=== PATIENT | male | born 1970 | race Caucasian/White ===

== ENCOUNTER 2018-02-05 21:24 | Inpatient (IN) | payer OTHER ==
--- NOTE | 2018-02-05 22:50 | PDOC ---
History of Present Illness - General History Source: Care Provider, Old Records Exam Limitations: No Limitations - History of Present Illness Initial Comments: 02/06/18 02:36 Patient is a 47 year old male with a significant past medical history of severe mental retardation, down syndrome, pericardial effusion, systolic dysfunction, congenital heart anomaly, hypothyroidism, lymphocytic thyroiditis, MRSA infection, cataracts, decreased hearing b/l, congenital deformity of the hand, upper extremities, and shoulder girdle, who was brought by aid to the ED with complaints of chronic coughing that began earlier today. As per patient's aid, patient began to experience sudden cough that she stated was chronic and forceful enough to cause him to vomit. She reports calling the patient's nurse , who then advised that he be taken to the ED for further evaluation. As per Aid: Denies diarrhea, constipation, hematuria. Denies contact with sick individuals, out of state travelling. Denies fevers, chills. Denies any other symptoms. Allergies: Azithromycin Social history: [facility]. No smoking. No alcohol. No illicit drugs. Surgical history: none PMD: Dr. Coto <Regan Nicolas - Last Filed: 02/06/18 04:14> <Jazmin Moody - Last Filed: 02/06/18 04:21> - General Chief Complaint: Shortness of Breath Stated Complaint: WHEEZING,COUGHING Time Seen by Provider: 02/05/18 22:50 Past History <Regan Nicolas - Last Filed: 02/06/18 04:14> - Past Medical History Cardiac Disorders: Yes (ANOMALY OF HEART) COPD: No Thyroid Disease: Yes (THYROIDITIS) Other medical history: Downs syndrome - Immunization History Immunization Up to Date: Yes - Suicide/Smoking/Psychosocial Hx Smoking Status: No Smoking History: Never smoked Number of Cigarettes Smoked Daily: 0 Hx Alcohol Use: No Drug/Substance Use Hx: No Substance Use Type: None Hx Substance Use Treatment: No <Jazmin Moody - Last Filed: 02/06/18 04:21> - Past Medical History Allergies/Adverse Reactions: Allergies Allergy/AdvReac Type Severity Reaction Status Date / Time azithromycin [From Zithromax] Allergy Verified 02/05/18 21:37 Home Medications: Ambulatory Orders Loratadine [Claritin] 10 mg PO DAILY 01/17/12 Multivitamin [Animal Shapes Vitamins] 1 tab PO DAILY 01/17/12 [place]-3 Fatty Acids/Fish Oil [Fish Oil 1,000 mg Softgel] 1 each PO DAILY Levothyroxine [Synthroid -] 75 mcg PO DAILY 10/06/14 Sodium Chloride [Saline Nasal [place]] 30 ml NS BID 10/06/14 Kobi/Polymyx B Sulf/Dexameth [Maxitrol -] 1 applic OU HS #1 tube 02/21/15 Kobi/Polymyx B Sulf/Dexameth [Maxitrol Eye Drops -] 2 drop OU Q6HPO drops Bisacodyl [Dulcolax] 10 mg RC PRN 02/06/18 Ibuprofen 200 mg PO PRN PRN 02/06/18 Review of Systems - Review of Systems Able to Perform ROS?: Yes Comments:: 02/06/18 02:37 GENERAL/CONSTITUTIONAL: +Fever No chills. No weakness. HEAD, EYES, EARS, NOSE AND THROAT: No change in vision. No ear pain or discharge. No sore throat. CARDIOVASCULAR: No chest pain or shortness of breath. RESPIRATORY: +Coughing. No, wheezing, or hemoptysis. GASTROINTESTINAL: +Vomiting. No nausea, diarrhea or constipation. GENITOURINARY: No dysuria, frequency, or change in urination. MUSCULOSKELETAL: No joint or muscle swelling or pain. No neck or back pain. SKIN: No rash NEUROLOGIC: No headache, vertigo, loss of consciousness, or change in strength/ sensation. ENDOCRINE: No increased thirst. No abnormal weight change. HEMATOLOGIC/LYMPHATIC: No anemia, easy bleeding, or history of blood clots. ALLERGIC/IMMUNOLOGIC: No hives or skin allergy. <Regan Nicolas - Last Filed: 02/06/18 04:14> *Physical Exam - Vital Signs Last Vital Signs Temp Pulse Resp BP Pulse Ox 98.6 F 130 H 20 134/72 92 L 02/05/18 21:31 02/05/18 21:31 02/05/18 21:31 02/05/18 21:31 02/05/18 21:31 - Physical Exam Comments: 02/06/18 02:37 GENERAL: Awake, alert, and fully oriented, in no acute distress HEAD: No signs of trauma EYES: +Cross eyed. PERRLA, EOMI, sclera anicteric, conjunctiva clear ENT: Auricles normal inspection, hearing grossly normal, nares patent, oropharynx clear without exudates. Moist mucosa NECK: Normal ROM, supple, no lymphadenopathy, JVD, or masses LUNGS: Breath sounds equal, clear to auscultation bilaterally. No wheezes, and no crackles HEART: +Tachycardic. Regular rhythm, normal S1 and S2, no murmurs, rubs or gallops ABDOMEN: Soft, nontender, normoactive bowel sounds. No guarding, no rebound. No masses EXTREMITIES: Normal range of motion, no edema. No clubbing or cyanosis. No cords, erythema, or tenderness NEUROLOGICAL: Cranial nerves II through XII grossly intact. Normal speech, normal gait SKIN: Warm, Dry, normal turgor, no rashes or lesions noted. <Regan Nicolas - Last Filed: 02/06/18 04:14> - Vital Signs Last Vital Signs Temp Pulse Resp BP Pulse Ox 98.6 F 130 H 20 134/72 92 L 02/05/18 21:31 02/05/18 21:31 02/05/18 21:31 02/05/18 21:31 02/05/18 21:31 <Jazmin Moody - Last Filed: 02/06/18 04:21> Heart Score/ECG Review - ECG Intrepretation Comment:: 02/06/18 04:14 Completed @3:11:54 Poor data quality, interprretation may be adversely affected Sinus tachycardia Ventricular pre-excitation, WPW pattern type A Abnormal ECG Vent. rate 109 bpm MN interval 128 ms QRS duration 152 ms <Regan Nicolas - Last Filed: 02/06/18 04:14> ED Treatment Course - LABORATORY CBC & Chemistry Diagram: 02/05/18 23:42 02/05/18 23:42 - ADDITIONAL ORDERS Additional order review: Laboratory Results 02/05/18 02/05/18 23:42 23:42 Sodium 140 Potassium 4.6 Chloride 106 Carbon Dioxide 27 Anion Gap 7 L BUN 19 H D Creatinine 1.0 D Creat Clearance w eGFR > 60 Random Glucose 161 H D Lactic Acid 1.5 Calcium 8.4 L Total Bilirubin 0.6 AST 31 D ALT 21 D Alkaline Phosphatase 111 Total Protein 7.5 Albumin 3.1 L 02/05/18 23:42 RBC 4.11 MCV 102.1 H MCHC 34.6 RDW 12.8 MPV 8.1 Neutrophils % 86.5 H D Lymphocytes % 6.2 L D Monocytes % 6.6 Eosinophils % 0.1 D Basophils % 0.6 - Medications Given in the ED: ED Medications Discontinued Medications Generic Name Dose Route Start Last Admin Trade Name Warren PRN Reason Stop Dose Admin Acetaminophen 1,000 mg 02/06/18 01:49 02/06/18 02:00 Ofirmev Injection - IVPB 02/06/18 01:50 1,000 mg ONCE ONE Administration Piperacillin Sod/Tazobactam 50 mls @ 100 mls/hr 02/05/18 22:53 02/05/18 22:55 Sod 3.375 gm/ Dextrose IVPB 02/05/18 23:22 100 mls/hr ONCE ONE Administration Protocol Sodium Chloride 1,000 ml 02/06/18 00:11 02/06/18 00:49 Normal Saline - IV 02/06/18 00:12 1,000 ml ONCE ONE Administration <Regan Nicolas - Last Filed: 02/06/18 04:14> - LABORATORY CBC & Chemistry Diagram: 02/05/18 23:42 02/05/18 23:42 <Jazmin Moody - Last Filed: 02/06/18 04:21> Medical Decision Making - Medical Decision Making 02/06/18 02:33 Pt comes with tachycardia, cough and wheeze. He has a low grade temp. Pt has a wet cough. O2 Sat on RA is 92%. Now after treatment still between 91% and 93%. Pt was initially blood cultured and treated with a dose of zosyn, as he lives in a [facility] situation. Pt has downs syndome and cannot contribute to his history. Severe development delay. Pt will require admission for IV abx. 02/06/18 02:34 EKG demonstrtaes old LVH strain and interventricular conduction delay 02/06/18 02:42 Pt still has a temp of 101F rectally. 02/06/18 04:19 Patient Name: MARIANNE CORTÉS THIS IS A FINAL REPORT FROM [facility] [employer] [facility] DATE OF SERVICE: 2018-02-05 22:56:06 IMAGES: 2 EXAM: X-RAY CHEST 2.5 cm right hilar ovoid radiopacity, question lymphadenopathy versus vascular prominence. Consider chest CT correlation. Exam limited by left hand and wrist overlying left mid lung. No visible lung consolidation or pleural effusions. Cardiomegaly and/or pericardial effusion. Chronic fracture right clavicle. THIS DOCUMENT HAS BEEN ELECTRONICALLY SIGNED Pt will be admitted to the hospitaist team <Jazmin Moody - Last Filed: 02/06/18 04:21> *DC/Admit/Observation/Transfer - Attestations Scribe Attestion: 02/06/18 02:37 Documentation prepared by Regan Nicolas, acting as medical lab specialist for Jazmin Moody MD. <Regan Nicolas - Last Filed: 02/06/18 04:14> - Discharge Dispostion Decision to Admit order: Yes <Jazmin Moody - Last Filed: 02/06/18 04:21> Diagnosis at time of Disposition: Pneumonia, Tachycardia - Discharge Dispostion Condition at time of disposition: Guarded
[2018-02-05] MEDS ORDERED: PIPERACILLIN/TAZOB 3.375 GM 3.375 GM in DEXTROSE 5%-WATER - 50 ML IVPB ONE (22:53)
[2018-02-05] MEDS ORDERED: PIPERACILLIN/TAZOB 3.375 GM 3.375 GM/50 ML BAG IVPB ONE (23:12)
[2018-02-05] MEDS: NEO/POLYMYX B SULF/DEXAMETH OPHTHALMIC 5ML BOTTLE OU SCH (23:40)
[2018-02-05 23:53] LABS: BASO % 0.6 % (0-2.0); EOS % 0.1 % (0-4.5); HEMATOCRIT 41.9 % (35.4-49); HEMOGLOBIN 14.5 GM/dL (11.7-16.9); LYMPH % 6.2 % (8-40); MCH 35.3 pg (25.7-33.7); MCHC 34.6 g/dl (32.0-35.9); MEAN CELL VOLUME 102.1 fl (80-96); MEAN PLT VOLUME 8.1 fl (7.5-11.1); MONO % 6.6 % (3.8-10.2); NEUT % 86.5 % (42.8-82.8); PLATELET COUNT 200 K/MM3 (134-434); RBC 4.11 M/mm3 (4.00-5.60); RDW 12.8 % (11.9-15.9); WHITE BLOOD COUNT 12.9 K/mm3 (4.0-10.0)
[2018-02-06] MEDS ORDERED: SODIUM CHLORIDE 0.9% 500 ML INFUS.BAG IV ONE (00:11)
[2018-02-06 00:22] LABS: ALBUMIN 3.1 g/dl (3.4-5.0); ANION GAP 7 (8-16); BILIRUBIN,TOTAL 0.6 mg/dL (0.2-1.0); BLOOD UREA NITROGEN 19 mg/dL (7-18); CALCIUM 8.4 mg/dL (8.5-10.1); CHLORIDE 106 mmol/L (98-107); CO2 27 mmol/L (21-32); GLUCOSE,RANDOM 161 mg/dL (74-106); SGPT/ALT 21 U/L (12-78); SODIUM 140 mmol/L (136-145); TOT PROT 7.5 g/dl (6.4-8.2)
[2018-02-06 00:23] LABS: POTASSIUM 4.6 mmol/L (3.5-5.1)
[2018-02-06 00:24] LABS: ALK PHOS 111 U/L (45-117); SGOT/AST 31 U/L (15-37)
[2018-02-06] MEDS ORDERED: ACETAMINOPHEN 1000 MG/100 ML VIAL (NON FORMULARY) IVPB ONE (01:49)
[2018-02-06] MEDS ORDERED: ACETAMINOPHEN INJECTION 100 ML IVPB ONE (01:58)
[2018-02-06] MEDS ORDERED: ALBUTEROL SO4 2.5/IPRATROPIUM 0.5 INH SOL 3 ML VIAL.NEB. NEB ONE ×2 (02:34→02:39)
[2018-02-06] MEDS ORDERED: KETOROLAC TROMETHAMINE 30 MG/1 ML VIAL IVPUSH ONE (02:42)
[2018-02-06] MEDS ORDERED: KETOROLAC TROMETHAMINE 30 MG/1 ML VIAL ONE (02:48)
--- NOTE | 2018-02-06 04:02 | PN ---
Teaching Attending Note Name of Resident: Dary Markham ATTENDING PHYSICIAN STATEMENT I saw and evaluated the patient. Chart, data, imaging reviewed. I reviewed the resident's note and discussed the case with the resident. I agree with the resident's findings and plan as documented. SUBJECTIVE: 47 year old male with a significant past medical history of severe mental retardation, down syndrome, pericardial effusion, systolic dysfunction, congenital heart anomaly, hypothyroidism, lymphocytic thyroiditis, MRSA infection brought in by aid to [facility] because he was experiencing shortness of breath and wheezing while at home, associated with a cough. Started abruptly in afternoon. Patient was not eating around this time. No reported sick contacts. OBJECTIVE: Last Vital Signs Temp Pulse Resp BP Pulse Ox 101.0 F H 130 H 20 134/72 92 L 02/06/18 02:42 02/05/18 21:31 02/05/18 21:31 02/05/18 21:31 02/05/18 21:31 general -MR, not in visible distress, noncooperative heent- no sinus tenderness neck -no jvd, supple cv-s1+s2+ rrr chest- right anterior chest wheezing appreciated abdomen -soft, nt, no masses appreciated ext-no pedal edema ekg -sinus rhythm, [id number] Abnormal Lab Results 02/05/18 02/05/18 23:42 23:42 WBC 12.9 H D MCV 102.1 H MCH 35.3 H Neutrophils % 86.5 H D Lymphocytes % 6.2 L D Anion Gap 7 L BUN 19 H D Random Glucose 161 H D Calcium 8.4 L Albumin 3.1 L cxr- reviewed by me ASSESSMENT AND PLAN: 47yo man with MR, with sepsis secondary to community acquired pneumonia. Shortness or breath with cough, fever, tachypnea and mild infiltrates on cxr. Nontoxic apprearing and stable for transfer to medical floor. #Sepsis secondary to community acquired pneumonia -admit to telemetry (for pulse 02 monitoring) -lactate level -troponin -sputum culture -blood cultures x2 -urine legionella ag -UA -urine culture -ceftriaxone 2g IV daily -nebs prn if wheezing continue chronic home meds -heparin sc for dvt ppx
[2018-02-06] MEDS ORDERED: ALBUTEROL SO4 2.5/IPRATROPIUM 0.5 INH SOL 3 ML VIAL.NEB. NEB PRN (04:14)
--- NOTE | 2018-02-06 04:31 | HP ---
CHIEF COMPLAINT: cough PCP: Dr. Coto HISTORY OF PRESENT ILLNESS: 47 y/o M with PMH of severe mental retardation, Down's syndrome, pericardial effusion, systolic dysfunction, congenital heart anomaly, hypothyroidism, lymphocytic thyroiditis, MRSA infection, cataracts, decreased hearing b/l, congenital deformity of the hand, upper extremities, and shoulder girdle, who was brought to the ED from [place] d/t continued cough since this evening. As per aid, at 5pm, she noticed that the patient was wheezing and coughing, so she gave him a nebulizer tx. His sx didn't subside, so she called the doctor mutton puncher , who recommended checking his vitals which were 02 sat 89%, BP 113/76. D/t his low 02 sat, he recommended she bring the pt to the hospital. During this time, pt with persistent productive cough which caused one episode of NBNB emesis at the home. Pt ROS limited d/t pt's mental condition. No current known sick contacts at the home. ER course was notable for: (1) T 101F (2) Tachy 130HR (3) 92% 02 sat RA (4) duoneb x 1, toradol, NS Recent Travel: none PAST MEDICAL HISTORY: as above PAST SURGICAL HISTORY: none Social History: from [place] Smoking: denies Alcohol: denies Drugs: denies Family History: unknown Allergies azithromycin [From Zithromax] Allergy (Verified 02/05/18 21:37) - allergy type unknown HOME MEDICATIONS: Home Medications *has been reconciled as per nurse with [place] papers Medication Instructions Recorded Loratadine [Claritin] 10 mg PO DAILY 01/17/12 Multivitamin [Animal Shapes 1 tab PO DAILY 01/17/12 Vitamins] [place]-3 Fatty Acids/Fish Oil [Fish 1 each PO DAILY 01/17/12 Oil 1,000 mg Softgel] Levothyroxine [Synthroid -] 75 mcg PO DAILY 10/06/14 Sodium Chloride [Saline Nasal 30 ml NS BID 10/06/14 [place]] Kobi/Polymyx B Sulf/Dexameth 1 applic OU HS #1 tube 02/21/15 [Maxitrol -] Kobi/Polymyx B Sulf/Dexameth 2 drop OU Q6HPO drops 02/21/15 [Maxitrol Eye Drops -] Bisacodyl [Dulcolax] 10 mg RC PRN 02/06/18 Ibuprofen 200 mg PO PRN PRN 02/06/18 REVIEW OF SYSTEMS CONSTITUTIONAL: Absent: fever, chills, diaphoresis, generalized weakness, malaise, loss of appetite, weight change HEENT: Absent: rhinorrhea, nasal congestion, throat pain, throat swelling, difficulty swallowing, mouth swelling, ear pain, eye pain, visual changes CARDIOVASCULAR: Absent: chest pain, syncope, palpitations, irregular heart rate, lightheadedness , peripheral edema RESPIRATORY: +cough Absent: shortness of breath, dyspnea with exertion, orthopnea, wheezing, stridor , hemoptysis GASTROINTESTINAL: Absent: abdominal pain, abdominal distension, nausea, vomiting, diarrhea, constipation, melena, hematochezia GENITOURINARY: Absent: dysuria, frequency, urgency, hesitancy, hematuria, flank pain, genital pain MUSCULOSKELETAL: Absent: myalgia, arthralgia, joint swelling, back pain, neck pain SKIN: Absent: rash, itching, pallor HEMATOLOGIC/IMMUNOLOGIC: Absent: easy bleeding, easy bruising, lymphadenopathy, frequent infections ENDOCRINE: Absent: unexplained weight gain, unexplained weight loss, heat intolerance, cold intolerance NEUROLOGIC: Absent: headache, focal weakness or paresthesias, dizziness, unsteady gait, seizure, mental status changes, bladder or bowel incontinence PSYCHIATRIC: Absent: anxiety, depression, suicidal or homicidal ideation, hallucinations. PHYSICAL EXAMINATION Vital Signs - 24 hr 02/05/18 02/06/18 21:31 02:42 Temperature 98.6 F 101.0 F H Pulse Rate 130 H Respiratory 20 Rate Blood Pressure 134/72 O2 Sat by Pulse 92 L Oximetry (%) GENERAL: with MR, moving during exam, noncompliant HEAD: Normal with no signs of trauma. EYES: Pupils equal, round and reactive to light, extraocular movements intact, sclera anicteric, conjunctiva clear. No lid lag. EARS, NOSE, THROAT: Ears normal, nares patent NECK: Normal range of motion, supple LUNGS: Breath sounds equal, wheezing appreciated RUL, otherwise without rhonchi or crackles. no accessory m . usage HEART: Regular rate and rhythm, normal S1 and S2 without murmur, rub or gallop. ABDOMEN: Soft, nontender, not distended, no guarding, no rebound UPPER EXTREMITIES: +with amputated digits-L hand LOWER EXTREMITIES: warm, well-perfused. No calf tenderness. No peripheral edema. NEUROLOGICAL: with MR, unable to adequately assess as pt noncompliant with exam PSYCHIATRIC: uncooperative SKIN: Warm, dry, normal turgor Laboratory Results - last 24 hr 02/05/18 02/05/18 02/05/18 23:42 23:42 23:42 WBC 12.9 H D RBC 4.11 Hgb 14.5 Hct 41.9 MCV 102.1 H MCH 35.3 H MCHC 34.6 RDW 12.8 Plt Count 200 MPV 8.1 Neutrophils % 86.5 H D Lymphocytes % 6.2 L D Monocytes % 6.6 Eosinophils % 0.1 D Basophils % 0.6 Sodium 140 Potassium 4.6 Chloride 106 Carbon Dioxide 27 Anion Gap 7 L BUN 19 H D Creatinine 1.0 D Creat Clearance w eGFR > 60 Random Glucose 161 H D Lactic Acid 1.5 Calcium 8.4 L Total Bilirubin 0.6 AST 31 D ALT 21 D Alkaline Phosphatase 111 Total Protein 7.5 Albumin 3.1 L EKG sinus tach, vent rate 109, NJ 128ms, QRS 152ms, Qtc 511ms Microbiology -02/05/18 Blood cx: pending CXR -with possible infiltrate development b/l in RLL, SILVINO ASSESSMENT/PLAN: 47 y/o M with PMH of severe mental retardation, Down's syndrome, pericardial effusion, systolic dysfunction, congenital heart anomaly, hypothyroidism, lymphocytic thyroiditis, MRSA infection, cataracts, decreased hearing b/l, congenital deformity of the hand, upper extremities, and shoulder girdle, who was brought to the ED from [place] d/t continued cough since this evening. Pt admitted for sepsis 2/2 CAP #Sepsis 2/2 community acquired PNA -with temp 101F, [id number], 92 02 sat, white count 12.9 -developing infiltrates b/l on CXR, however mild. -d/t radiological lag behind clinical appearance, will continue to follow -received zosyn 3.375 x 1 in ED -started on ceftriaxone 2g IVPB qd for CAP coverage; allergic to azithromycin -duonebs q6h PRN for SOB -F/u Urine legionella ag, blood cx, sputum cx -F/u lactate -F/u UA, UCx, troponin #hx pericardial effusion, systolic dysfunction -telemetry monitoring #Hypothyroid -Continue synthroid 75mcg PO qd #F/E/N -no IVF at this time -continue to follow lytes -NPO to avoid risk aspiration; speech and swallow consult #PPX Hep SQ 5000 BID #Dispo -Continued monitoring on tele Visit type - Emergency Visit Emergency Visit: Yes ED Registration Date: 02/06/18 Care time: The patient presented to the Emergency Department on the above date and was hospitalized for further evaluation of their emergent condition. - New Patient This patient is new to me today: Yes Date on this admission: 02/06/18 - Critical Care Critical Care patient: No Hospitalist Screening - Colonoscopy Questionnaire Colonoscopy Questionnaire: Colonoscopy Questionnaire - Patient: 50 - 75 years old and never had a screening colonoscopy: Unknown History of colon or rectal polyps, or CA: Unknown History of IBD, Crohn's disease or UC: Unknown History of abdominal radiation therapy as a child: Unknown - Relative: 1 with colon or rectal CA, or polyps at age 60 or younger: Unknown Colon or rectal CA diagnosed at age 45 or younger: Unknown Multiple relatives with colon or rectal CA: Unknown - Outcome: Screening Result: Negative Screen
[2018-02-06] MEDS ORDERED: BISACODYL 10 MG SUPP.RECT RC PRN ×2 (04:45→16:56)
[2018-02-06 06:14] LABS: BASO % 0.5 % (0-2.0); EOS % 0.1 % (0-4.5); HEMATOCRIT 38.3 % (35.4-49); HEMOGLOBIN 13.8 GM/dL (11.7-16.9); LYMPH % 10.2 % (8-40); MCH 36.9 pg (25.7-33.7); MCHC 35.9 g/dl (32.0-35.9); MEAN CELL VOLUME 102.8 fl (80-96); MONO % 5.9 % (3.8-10.2); NEUT % 83.3 % (42.8-82.8); PLATELET COUNT 170 K/MM3 (134-434); RBC 3.73 M/mm3 (4.00-5.60); RDW 12.6 % (11.9-15.9); WHITE BLOOD COUNT 10.8 K/mm3 (4.0-10.0)
[2018-02-06] MEDS: NEO/POLYMYX B SULF/DEXAMETH OPHTHALMIC 5ML BOTTLE OU SCH ×3 (06:15→19:40)
[2018-02-06] MEDS ORDERED: LEVOTHYROXINE NA 25 MCG TABLET (FP) ONE ×2 (06:20→06:35)
[2018-02-06 06:29] LABS: ANION GAP 6 (8-16); BLOOD UREA NITROGEN 15 mg/dL (7-18); CALCIUM 7.8 mg/dL (8.5-10.1); CHLORIDE 110 mmol/L (98-107); CO2 27 mmol/L (21-32); CREATININE 0.9 mg/dL (0.7-1.3); GLUCOSE,RANDOM 93 mg/dL (74-106); MAGNESIUM 2.2 mg/dL (1.8-2.4); PHOSPHOROUS 3.4 mg/dL (2.5-4.9); SODIUM 143 mmol/L (136-145)
[2018-02-06] MEDS ORDERED: LEVOTHYROXINE NA 75 MCG TABLET (FP) PO SCH (07:00)
[2018-02-06] MEDS ORDERED: SODIUM CHLORIDE NASAL SPRAY 44 ML BOTTLE NS SCH (10:00)
[2018-02-06] MEDS ORDERED: DOXYCYCLINE INJECTION 100 MG in DEXTROSE 5%-WATER - 100 ML IVPB SCH (10:00)
[2018-02-06] MEDS ORDERED: CEFTRIAXONE 1,000 MG in DEXTROSE 5%-WATER - 50 ML IVPB SCH (10:00)
[2018-02-06] MEDS ORDERED: LORATADINE 10 MG TABLET PO SCH (10:00)
[2018-02-06] MEDS ORDERED: HEPARIN NA (PORCINE) 5,000 UNITS/ML 1ML VIAL SQ SCH (10:00)
[2018-02-06] MEDS ORDERED: CEFTRIAXONE 2 GM in DEXTROSE 5%-WATER 100 ML IVPB SCH (10:00)
--- NOTE | 2018-02-06 12:36 | PN ---
Progress Note (short form) - Note Progress Note: Subjective: no events this am. per aid , he is at his base line of alertness . Objective: Vital Signs: Last Vital Signs Temp Pulse Resp BP Pulse Ox 97.1 F L 82 16 109/67 95 02/06/18 09:28 02/06/18 09:28 02/06/18 09:28 02/06/18 09:28 02/06/18 09:28 Laboratory Results - last 24 hr 02/05/18 02/05/18 02/05/18 23:42 23:42 23:42 WBC 12.9 H D RBC 4.11 Hgb 14.5 Hct 41.9 MCV 102.1 H MCH 35.3 H MCHC 34.6 RDW 12.8 Plt Count 200 MPV 8.1 Neutrophils % 86.5 H D Lymphocytes % 6.2 L D Monocytes % 6.6 Eosinophils % 0.1 D Basophils % 0.6 Sodium 140 Potassium 4.6 Chloride 106 Carbon Dioxide 27 Anion Gap 7 L BUN 19 H D Creatinine 1.0 D Creat Clearance w eGFR > 60 Random Glucose 161 H D Lactic Acid 1.5 Calcium 8.4 L Phosphorus Magnesium Total Bilirubin 0.6 AST 31 D ALT 21 D Alkaline Phosphatase 111 Troponin I Total Protein 7.5 Albumin 3.1 L 02/06/18 02/06/18 02/06/18 05:55 05:55 05:55 WBC 10.8 H RBC 3.73 L Hgb 13.8 Hct 38.3 MCV 102.8 H MCH 36.9 H MCHC 35.9 RDW 12.6 Plt Count 170 MPV 8.0 Neutrophils % 83.3 H Lymphocytes % 10.2 D Monocytes % 5.9 Eosinophils % 0.1 Basophils % 0.5 Sodium 143 Potassium 4.0 Chloride 110 H Carbon Dioxide 27 Anion Gap 6 L BUN 15 D Creatinine 0.9 Creat Clearance w eGFR Random Glucose 93 D Lactic Acid Calcium 7.8 L Phosphorus 3.4 Magnesium 2.2 Total Bilirubin AST ALT Alkaline Phosphatase Troponin I 0.05 D Total Protein Albumin 02/06/18 05:55 WBC RBC Hgb Hct MCV MCH MCHC RDW Plt Count MPV Neutrophils % Lymphocytes % Monocytes % Eosinophils % Basophils % Sodium Potassium Chloride Carbon Dioxide Anion Gap BUN Creatinine Creat Clearance w eGFR Random Glucose Lactic Acid 1.0 Calcium Phosphorus Magnesium Total Bilirubin AST ALT Alkaline Phosphatase Troponin I Total Protein Albumin Physical Exam: NAD, awake , minimal cooperation. non verbal MMM, inward R eye deviation. Cv: limited exam. RRR, 3/6 SM all over the pericardium. Lungs: decreased breath sounds at bases , scattered rales Ext : no edema on legs. deformed hands Assessment/Plan: Unfortunate 47 y/o man with h/o Down syndrome and MR , pericardial effusion, systolic dysfunction, hypthyroidism 2/2 lymphatic thyroiditis, congenital heart defect and other medical problems who presented with cough and sputum production 1- fever and leukocytosis ; likely due to PNA ( crackles, cough , fever , leukocytosis) . chest xray with hilar infiltrates on R , but withL sided hand artifact. - cont ceftriaxone - avoid zithomax de to Qtc 511 - sputum cx - follow blood cx - check UA - repeat Cxray with no artifact 2- h/o hypothyroidism: cont synthroid 3- H/o congenital heart defect and systolic dysfunction . euvolemic now. - avoid IVF - monitor volume status 4- prolonged Qtc 511: repeat EKG in am , avoid prolonging agents 5-hypothyroidism 6- bowel regimen 7- DVt PX , heparin Visit type - Emergency Visit Emergency Visit: Yes ED Registration Date: 02/06/18 Care time: The patient presented to the Emergency Department on the above date and was hospitalized for further evaluation of their emergent condition. - New Patient This patient is new to me today: Yes Date on this admission: 02/06/18 - Critical Care Critical Care patient: No
[2018-02-06 16:48] VITALS: BMI 19.8
[2018-02-06] MEDS: HEPARIN NA (PORCINE) 5,000 UNITS/ML 1ML VIAL SQ SCH ×2 (18:10→22:01)
[2018-02-06] MEDS: SODIUM CHLORIDE NASAL SPRAY 44 ML BOTTLE NS SCH (21:59)
[2018-02-06] MEDS: NEO/POLYMYX B SULF/DEXAMETH OPHTHALMIC OINTMENT 3.5 GM OU SCH (21:59)
[2018-02-06] MEDS ORDERED: NEO/POLYMYX B SULF/DEXAMETH OPHTHALMIC OINTMENT 3.5 GM OU SCH (22:00)
[2018-02-06] MEDS: SENNOSIDES/DOCUSATE COMBO (SENNA PLUS) TABLET (UD) PO SCH (22:01)
[2018-02-07] MEDS: NEO/POLYMYX B SULF/DEXAMETH OPHTHALMIC 5ML BOTTLE OU SCH ×3 (06:02→17:59)
[2018-02-07] MEDS: LEVOTHYROXINE NA 75 MCG TABLET (FP) PO SCH (06:10)
[2018-02-07] MEDS: HEPARIN NA (PORCINE) 5,000 UNITS/ML 1ML VIAL SQ SCH ×2 (06:10→15:03)
[2018-02-07 07:47] LABS: BASO % 0.8 % (0-2.0); EOS % 2.9 % (0-4.5); HEMATOCRIT 41.9 % (35.4-49); HEMOGLOBIN 14.4 GM/dL (11.7-16.9); LYMPH % 24.1 % (8-40); MCH 35.8 pg (25.7-33.7); MCHC 34.3 g/dl (32.0-35.9); MEAN CELL VOLUME 104.2 fl (80-96); MEAN PLT VOLUME 8.9 fl (7.5-11.1); MONO % 12.6 % (3.8-10.2); NEUT % 59.6 % (42.8-82.8); PLATELET COUNT 184 K/MM3 (134-434); RBC 4.02 M/mm3 (4.00-5.60); RDW 13.1 % (11.9-15.9); WHITE BLOOD COUNT 4.9 K/mm3 (4.0-10.0)
[2018-02-07 08:14] LABS: CHLORIDE 111 mmol/L (98-107); POTASSIUM 4.8 mmol/L (3.5-5.1); SODIUM 145 mmol/L (136-145)
[2018-02-07 08:26] LABS: ANION GAP 5 (8-16); BLOOD UREA NITROGEN 17 mg/dL (7-18); CALCIUM 8.6 mg/dL (8.5-10.1); CO2 29 mmol/L (21-32); CREATININE 0.9 mg/dL (0.7-1.3); GLUCOSE,RANDOM 70 mg/dL (74-106); MAGNESIUM 2.5 mg/dL (1.8-2.4); PHOSPHOROUS 3.7 mg/dL (2.5-4.9)
[2018-02-07 09:40] LABS: URINE APPEARANCE CLEAR; URINE BILIRUBIN NEGATIVE (<2.0 mg/dL); URINE GLUCOSE (UA) NEGATIVE (NEGATIVE); URINE KETONE TRACE (NEGATIVE); URINE LEUK ESTERASE NEGATIVE (NEGATIVE); URINE NITRITE NEGATIVE (NEGATIVE); URINE PROTEIN NEGATIVE (NEGATIVE); URINE UROBILINOGEN NEGATIVE mg/dL (0.2-1.0)
[2018-02-07 09:56] LABS: URINE COLOR DK YELLOW
[2018-02-07] MEDS ORDERED: PT OWN MED DRAWER 7, Y5N ONE (10:51)
[2018-02-07] MEDS ORDERED: DEXTROSE 5%-WATER 100 ML IVPB ONE (10:51)
[2018-02-07] MEDS: CEFTRIAXONE 2 GM in DEXTROSE 5%-WATER 100 ML IVPB SCH (11:07)
[2018-02-07] MEDS: LORATADINE 10 MG TABLET PO SCH (11:07)
[2018-02-07] MEDS: SENNOSIDES/DOCUSATE COMBO (SENNA PLUS) TABLET (UD) PO SCH (11:07)
[2018-02-07] MEDS: SODIUM CHLORIDE NASAL SPRAY 44 ML BOTTLE NS SCH ×2 (11:08→15:03)
--- NOTE | 2018-02-07 11:26 | PN ---
Teaching Attending Note Name of Resident: Dary Markham ATTENDING PHYSICIAN STATEMENT I saw and evaluated the patient. I reviewed the resident's note and discussed the case with the resident. I agree with the resident's findings and plan as documented. SUBJECTIVE: no events over night. OBJECTIVE: NAD, awake. non verbal . happy looking MMM, inward R eye deviation. Cv: limited exam. RRR, 3/6 SM all over the pericardium. Lungs: decreased breath sounds at bases, scattered rales bella R lower lung Ext : no edema on legs. deformed hands Abd: soft, NT, ND, NL BS Assessment/Plan: Unfortunate 47 y/o man with h/o Down syndrome and MR , pericardial effusion, systolic dysfunction, hypthyroidism 2/2 lymphatic thyroiditis, congenital heart defect and other medical problems who presented with cough and sputum production 1- Fever and leukocytosis; likely due to PNA. - cont ceftriaxone day 2 - avoid zithomax due to Qtc 511 and allergy - follow sputum cx and blood cx - UA with no pyuria so far. - repeat Cxray reviewed. 2- H/o hypothyroidism: cont synthroid 3- H/o congenital heart defect and systolic dysfunction . euvolemic now. - monitor volume status. 4- prolonged Qtc 511:follow repeat EKG , avoid prolonging agents 5-hypothyroidism 6- Bowel regimen 7- DVt PX , heparin
[2018-02-07] MEDS: ZINC OXIDE 20% TOPICAL OINTMENT 30 GM TUBE TP SCH (15:09)
--- NOTE | 2018-02-07 15:45 | PN ---
Physical Exam: SUBJECTIVE: Patient seen and examined at bedside. Yesterday, pt with low temps with Tmax 99.8F. No acute events overnight. Today, pt interactive with aid from Alex at bedside. As per aid, with dry cough. OBJECTIVE: Vital Signs Period Temp Pulse Resp BP Sys/Jackson Pulse Ox Last 24 Hr 97.9 F-99.8 F 79-102 18-20 90-151/70-77 GENERAL: The patient is interactive, awake, in no acute distress. HEAD: Normal with no signs of trauma. EYES: PERRL, extraocular movements intact, sclera anicteric, conjunctiva clear. ENT: Ears normal NECK: Trachea midline, supple. LUNGS: decreased breath sounds at bases. pt unable to follow commands to check inspiration HEART: Regular rate and rhythm, S1, S2 with systolic murmur appreciated LUSB, rub or gallop. ABDOMEN: Soft, nontender, nondistended, no guarding, no rebound EXTREMITIES: 2+ posterior tibial pulses, warm, well-perfused, no edema. NEUROLOGICAL: Cranial nerves II through XII appear to be grossly intact. pt unable to follow commands PSYCH: Normal mood, normal affect. SKIN: Warm, dry Laboratory Results - last 24 hr 02/07/18 02/07/18 02/07/18 06:15 06:15 08:40 WBC 4.9 D RBC 4.02 Hgb 14.4 Hct 41.9 MCV 104.2 H MCH 35.8 H MCHC 34.3 RDW 13.1 Plt Count 184 MPV 8.9 D Neutrophils % 59.6 D Lymphocytes % 24.1 D Monocytes % 12.6 H D Eosinophils % 2.9 D Basophils % 0.8 Sodium 145 Potassium 4.8 Chloride 111 H Carbon Dioxide 29 Anion Gap 5 L BUN 17 Creatinine 0.9 Random Glucose 70 L D Calcium 8.6 Phosphorus 3.7 Magnesium 2.5 H Urine Color Dk yellow Urine Appearance Clear Urine pH 5.0 Ur Specific [place] 1.031 Urine Protein Negative Urine Glucose (UA) Negative Urine Ketones Trace H Urine Blood Negative Urine Nitrite Negative Urine Bilirubin Negative Urine Urobilinogen Negative Ur Leukocyte Esterase Negative Active Medications Generic Name Dose Route Start Last Admin Trade Name Freq PRN Reason Stop Dose Admin Albuterol/Ipratropium 1 amp 02/06/18 16:56 Duoneb - NEB Q6H PRN SHORTNESS OF BREATH Bisacodyl 10 mg 02/06/18 16:56 Dulcolax Suppository - RC PRN PRN CONSTIPATION Heparin Sodium (Porcine) 5,000 unit 02/06/18 16:00 02/07/18 15:03 Heparin - SQ 5,000 unit TID TANISHA Administration Ceftriaxone Sodium 2 gm/ 100 mls @ 200 mls/hr 02/07/18 10:00 02/07/18 11:07 Dextrose IVPB 200 mls/hr DAILY TANISHA Administration Levothyroxine Sodium 75 mcg 02/07/18 07:00 02/07/18 06:10 Synthroid - PO 75 mcg DAILY@0700 TANISHA Administration Loratadine 10 mg 02/07/18 10:00 02/07/18 11:07 Claritin - PO 10 mg DAILY TANISHA Administration Multi-Ingredient Ointment 1 applic 02/07/18 11:15 02/07/18 15:09 Zinc Oxide TP 1 applic BID TANISHA Administration Neomycin/Polymyxin/Dexamethasone 1 applic 02/06/18 22:00 02/06/18 21:59 Maxitrol Eye Ointment - OU 1 applic HS TANISHA Administration Neomycin/Polymyxin/Dexamethasone 2 drop 02/06/18 18:00 02/07/18 12:45 Maxitrol Eye Drops - OU 2 drop Q6HPO TANISHA Administration Senna/Docusate Sodium 1 tablet 02/06/18 22:00 02/07/18 11:07 Pericolace - PO 1 tablet BID TANISHA Administration Sodium Chloride 1 spray 02/06/18 22:00 02/07/18 15:03 [place] Nasal [place] - NS 1 spray BID TANISHA Administration EKG sinus tach, vent rate 109, SC 128ms, QRS 152ms, Qtc 511ms Microbiology 02/07/18 08:40 Urine For Antigen Detection Legionella Antigen - Final 02/07/18 08:40 Urine For Antigen Detection Streptococcus pneumoniae Antigen (M - Final 02/05/18 23:45 Blood - Peripheral Venous Blood Culture - Preliminary NO GROWTH OBTAINED AFTER 24 HOURS, INCUBATION TO CONTINUE FOR 4 DAYS. CXR -02/05/18: with interference from upper extremity - poor study -02/07/18: cardiomegaly, with atelectasis. however without infiltrates noted ASSESSMENT/PLAN: 47 y/o M with PMH of severe mental retardation, Down's syndrome, pericardial effusion, systolic dysfunction, congenital heart anomaly, hypothyroidism, lymphocytic thyroiditis, MRSA infection, cataracts, decreased hearing b/l, congenital deformity of the hand, upper extremities, and shoulder girdle, who was brought to the ED from [place] d/t continued cough since this evening. Pt admitted for sepsis 2/2 CAP #Sepsis 2/2 community acquired PNA -white count improved from 12.9 to 4.9 -pt less lethargic today, interactive -received zosyn 3.375 x 1 in ED -started on ceftriaxone 2g IVPB qd for CAP coverage- Today is Day2; allergic to azithromycin -duonebs q6h PRN for SOB -F/u repeat EKG to check if QTc still prolonged -F/u Urine legionella ag, blood cx (-) thus far, sputum cx -F/u lactate -F/u UCx #h/o MRSA -F/u MRSA screen as per infection control #hx pericardial effusion, systolic dysfunction -telemetry monitoring #Hypothyroid -Continue synthroid 75mcg PO qd #F/E/N -no IVF at this time -continue to follow lytes -dysphagia puree with thin liquids #PPX Hep SQ 5000 BID #Dispo -Continued monitoring on tele Visit type - Emergency Visit Emergency Visit: No - New Patient This patient is new to me today: No - Critical Care Critical Care patient: No
--- NOTE | 2018-02-08 00:26 | EKG ---
Test Reason : Blood Pressure : / mmHG Vent. Rate : 109 BPM Atrial Rate : 109 BPM P-R Int : 128 ms QRS Dur : 152 ms QT Int : 380 ms P-R-T Axes : 048 052 095 degrees QTc Int : 511 ms SINUS TACHYCARDIA RIGHT BUNDLE BRANCH BLOCK ABNORMAL ECG WHEN COMPARED WITH ECG OF 10-OCT-2014 08:50, NO SIGNIFICANT CHANGE WAS FOUND Confirmed by ROOSEVELT NORRIS MD ([id number]) on 02/08/2018 12:26:04 AM Referred By: Confirmed By:ROOSEVELT NORRIS MD
[2018-02-08] MEDS: NEO/POLYMYX B SULF/DEXAMETH OPHTHALMIC OINTMENT 3.5 GM OU SCH ×2 (00:45→23:19)
[2018-02-08] MEDS: SODIUM CHLORIDE NASAL SPRAY 44 ML BOTTLE NS SCH ×3 (00:46→23:19)
[2018-02-08] MEDS: NEO/POLYMYX B SULF/DEXAMETH OPHTHALMIC 5ML BOTTLE OU SCH ×4 (00:46→17:27)
[2018-02-08] MEDS: ZINC OXIDE 20% TOPICAL OINTMENT 30 GM TUBE TP SCH ×3 (00:46→23:31)
[2018-02-08] MEDS: SENNOSIDES/DOCUSATE COMBO (SENNA PLUS) TABLET (UD) PO SCH ×3 (00:47→23:19)
[2018-02-08] MEDS: HEPARIN NA (PORCINE) 5,000 UNITS/ML 1ML VIAL SQ SCH ×4 (00:47→23:20)
[2018-02-08] MEDS: LEVOTHYROXINE NA 75 MCG TABLET (FP) PO SCH (06:51)
[2018-02-08 08:41] LABS: CHLORIDE 110 mmol/L (98-107); POTASSIUM 4.2 mmol/L (3.5-5.1); SODIUM 144 mmol/L (136-145)
[2018-02-08 09:43] LABS: ANION GAP 9 (8-16); BLOOD UREA NITROGEN 20 mg/dL (7-18); CALCIUM 8.3 mg/dL (8.5-10.1); CO2 25 mmol/L (21-32); GLUCOSE,RANDOM 76 mg/dL (74-106)
[2018-02-08] MEDS ORDERED: DEXTROSE 5%-WATER 100 ML IVPB ONE (09:46)
[2018-02-08] MEDS ORDERED: PT OWN MED DRAWER 7, Y5N ONE (09:46)
[2018-02-08] MEDS: CEFTRIAXONE 2 GM in DEXTROSE 5%-WATER 100 ML IVPB SCH (09:50)
[2018-02-08] MEDS: LORATADINE 10 MG TABLET PO SCH (09:50)
[2018-02-08] MEDS ORDERED: RACEPINEPHRINE IH SOL 2.25% 11.25 MG/0.5 ML VIAL NEB PRN (12:02)
[2018-02-08] MEDS: ALBUTEROL SO4 2.5/IPRATROPIUM 0.5 INH SOL 3 ML VIAL.NEB. NEB PRN ×2 (14:05→21:18)
--- NOTE | 2018-02-08 15:30 | PN ---
Teaching Attending Note Name of Resident: Dary Markham ATTENDING PHYSICIAN STATEMENT I saw and evaluated the patient. I reviewed the resident's note and discussed the case with the resident. I agree with the resident's findings and plan as documented. SUBJECTIVE: No events over night OBJECTIVE: NAD, awake. non verbal . happy looking. unable to perform oropharynx exam even with 2 people assist MMM, inward R eye deviation. stridor Cv: RRR, 3/6 SM all over the pericardium. Lungs: decreased breath sounds at bases, scattered rales bella R lower lung Ext: no edema on legs. deformed hands Abd: soft, NT, ND, NL BS. Assessment/Plan: Unfortunate 47 y/o man with h/o Down syndrome and MR , pericardial effusion, systolic dysfunction, hypthyroidism 2/2 lymphatic thyroiditis, congenital heart defect and other medical problems who presented with cough and sputum production 1- Fever and leukocytosis; likely due to PNA. - cont ceftriaxone day 3 - avoid zithomax due to Qtc 511 and allergy - follow sputum cx and blood cx 2-Stridor : unclear etiology. ? soft tissue edema , epigultitis , vocal cord dysfunction - start recepinephrin - neck xray - ENT eval 3- H/o hypothyroidism: cont synthroid 4- H/o congenital heart defect and systolic dysfunction. euvolemic now. - monitor volume status. 5- prolonged Qtc 511: repeat EKG 492 , avoid prolonging agents 6-hypothyroidism 7- Bowel regimen 8- DVt PX , heparin dispo: HLOC
--- NOTE | 2018-02-08 16:13 | EKG ---
Test Reason : Blood Pressure : / mmHG Vent. Rate : 111 BPM Atrial Rate : 111 BPM P-R Int : 126 ms QRS Dur : 150 ms QT Int : 362 ms P-R-T Axes : 057 -55 091 degrees QTc Int : 492 ms POOR DATA QUALITY, INTERPRETATION MAY BE ADVERSELY AFFECTED SINUS TACHYCARDIA VENTRICULAR PRE-EXCITATION, WPW PATTERN TYPE A ABNORMAL ECG WHEN COMPARED WITH ECG OF 06-FEB-2018 03:11, NO SIGNIFICANT CHANGE WAS FOUND PATIENT MOVING DURING EKG Confirmed by MD Collins, Oscar ([id number]) on 02/08/2018 4:13:29 PM Referred By: Christine PATIÑO Confirmed By:Oscar Guadalupe MD
--- NOTE | 2018-02-08 18:21 | PN ---
Physical Exam: SUBJECTIVE: Patient seen and examined at bedside. No acute events overnight. Today, pt with stridor, muffled with yelling. As per aid, he is at his baseline. OBJECTIVE: Vital Signs Period Temp Pulse Resp BP Sys/Jackson Pulse Ox Last 24 Hr 96.9 F-98.8 F 88-96 - 121-139/74-106 GENERAL: The patient is agitated, yelling. awake, alert, in mild distress HEAD: Normal with no signs of trauma. EYES: PERRL, extraocular movements intact, sclera anicteric, conjunctiva clear. ENT: Ears normal, nares patent, unable to visualize oropharynx d/t noncompliance NECK: Trachea midline, supple. LUNGS: + rhonchi LLL. without wheezing, crackles or accessory m usage HEART: Regular rate and rhythm, S1, S2 +systolic murmur appreciated LUSB ABDOMEN: Soft, nontender, nondistended, no guarding EXTREMITIES:no edema. NEUROLOGICAL: Cranial nerves II through XII appear to be grossly intact PSYCH: agitated SKIN: Warm, dry Laboratory Results - last 24 hr 02/08/18 07:30 Sodium 144 Potassium 4.2 Chloride 110 H Carbon Dioxide 25 Anion Gap 9 BUN 20 H Creatinine 1.0 Random Glucose 76 Calcium 8.3 L Active Medications Generic Name Dose Route Start Last Admin Trade Name Freq PRN Reason Stop Dose Admin Albuterol/Ipratropium 1 amp 02/06/18 16:56 02/08/18 14:05 Duoneb - NEB 1 amp Q6H PRN Administration SHORTNESS OF BREATH Bisacodyl 10 mg 02/06/18 16:56 Dulcolax Suppository - RC PRN PRN CONSTIPATION Epinephrine 1 vial 02/08/18 12:02 S-2 NEB Q8H PRN SHORTNESS OF BREATH Heparin Sodium (Porcine) 5,000 unit 02/06/18 16:00 02/08/18 13:46 Heparin - SQ 5,000 unit TID TANISHA Administration Ceftriaxone Sodium 2 gm/ 100 mls @ 200 mls/hr 02/07/18 10:00 02/08/18 09:50 Dextrose IVPB 200 mls/hr DAILY TANISHA Administration Levothyroxine Sodium 75 mcg 02/07/18 07:00 02/08/18 06:51 Synthroid - PO 75 mcg DAILY@0700 TANISHA Administration Loratadine 10 mg 02/07/18 10:00 02/08/18 09:50 Claritin - PO 10 mg DAILY TANISHA Administration Multi-Ingredient Ointment 1 applic 02/07/18 11:15 02/08/18 09:50 Zinc Oxide TP 1 applic BID TANISHA Administration Neomycin/Polymyxin/Dexamethasone 1 applic 02/06/18 22:00 02/08/18 00:45 Maxitrol Eye Ointment - OU Not Given HS TANISHA Neomycin/Polymyxin/Dexamethasone 2 drop 02/06/18 18:00 02/08/18 17:27 Maxitrol Eye Drops - OU 2 drop Q6HPO TANISHA Administration Senna/Docusate Sodium 1 tablet 02/06/18 22:00 02/08/18 09:50 Pericolace - PO 1 tablet BID TANISHA Administration Sodium Chloride 1 spray 02/06/18 22:00 02/08/18 09:50 [place] Nasal [place] - NS 1 spray BID TANISHA Administration EKG sinus tach, vent rate 109, [place] 128ms, QRS 152ms, Qtc 511ms Microbiology 02/07/18 08:40 Urine For Antigen Detection Legionella Antigen - Final 02/07/18 08:40 Urine For Antigen Detection Streptococcus pneumoniae Antigen (M - Final 02/05/18 23:45 Blood - Peripheral Venous Blood Culture - Preliminary NO GROWTH OBTAINED AFTER 48 HOURS, INCUBATION TO CONTINUE FOR 4 DAYS. CXR -02/05/18: with interference from upper extremity - poor study -02/07/18: cardiomegaly, with atelectasis. however without infiltrates noted ASSESSMENT/PLAN: 47 y/o M with PMH of severe mental retardation, Down's syndrome, pericardial effusion, systolic dysfunction, congenital heart anomaly, hypothyroidism, lymphocytic thyroiditis, MRSA infection, cataracts, decreased hearing b/l, congenital deformity of the hand, upper extremities, and shoulder girdle, who was brought to the ED from [place] d/t continued cough since this evening. Pt admitted for sepsis 2/2 CAP #Sepsis 2/2 community acquired PNA -received zosyn 3.375 x 1 in ED -started on ceftriaxone 2g IVPB qd for CAP coverage- Today is Day3; allergic to azithromycin -duonebs q6h PRN for SOB -repeat EKG 492 (from 511) -F/u Urine legionella ag, blood cx (-) thus far, sputum cx -UCx (-) #Stridor - new onset -May be 2/2 RSV, epiglottitis -F/u official report RSV panel -started on racemic epinephrine 1 vial neb q8h PRN for SOB -F/u Soft tissue neck XR -to determine if inflammation -ENT Eval - d/w Dr. Angulo will evaluate #h/o MRSA -F/u MRSA screen as per infection control -still pending -Contact precautions #hx pericardial effusion, systolic dysfunction -telemetry monitoring #Hypothyroid -Continue synthroid 75mcg PO qd #Bowel regimen -Continue senna/docusate sodium 1 tablet PO BID #Umbilical rash -Continue zinc oxide 1 applic TP BID #F/E/N -no IVF at this time -continue to follow lytes -dysphagia puree with thin liquids #PPX Hep SQ 5000 BID #Dispo -Continued monitoring on tele Visit type - Emergency Visit Emergency Visit: No - New Patient This patient is new to me today: No - Critical Care Critical Care patient: No - Discharge Referral Referred to [facility] No
[2018-02-08] MEDS ORDERED: methylPREDNISolone NA SUCC 40 MG/1 ML VIAL IVPUSH ONE (18:30)
[2018-02-09] MEDS: NEO/POLYMYX B SULF/DEXAMETH OPHTHALMIC 5ML BOTTLE OU SCH ×4 (00:58→17:27)
[2018-02-09] MEDS ORDERED: PT OWN MED DRAWER 7, Y5N ONE ×3 (01:04→22:19)
[2018-02-09] MEDS: HEPARIN NA (PORCINE) 5,000 UNITS/ML 1ML VIAL SQ SCH ×3 (07:59→22:43)
[2018-02-09] MEDS: LEVOTHYROXINE NA 75 MCG TABLET (FP) PO SCH (08:02)
[2018-02-09 08:03] LABS: BASO % 0.6 % (0-2.0); HEMATOCRIT 40.2 % (35.4-49); HEMOGLOBIN 13.8 GM/dL (11.7-16.9); LYMPH % 22.2 % (8-40); MCH 35.2 pg (25.7-33.7); MCHC 34.4 g/dl (32.0-35.9); MEAN CELL VOLUME 102.5 fl (80-96); MEAN PLT VOLUME 8.7 fl (7.5-11.1); MONO % 7.4 % (3.8-10.2); NEUT % 69.8 % (42.8-82.8); PLATELET COUNT 204 K/MM3 (134-434); RBC 3.92 M/mm3 (4.00-5.60); RDW 12.6 % (11.9-15.9); WHITE BLOOD COUNT 5.9 K/mm3 (4.0-10.0)
[2018-02-09 08:29] LABS: ANION GAP 7 (8-16); BLOOD UREA NITROGEN 18 mg/dL (7-18); CALCIUM 8.5 mg/dL (8.5-10.1); CHLORIDE 108 mmol/L (98-107); CO2 27 mmol/L (21-32); CREATININE 0.9 mg/dL (0.7-1.3); GLUCOSE,RANDOM 84 mg/dL (74-106); POTASSIUM 4.4 mmol/L (3.5-5.1); SODIUM 142 mmol/L (136-145)
[2018-02-09 08:45] LABS: MAGNESIUM 2.3 mg/dL (1.8-2.4); PHOSPHOROUS 4.8 mg/dL (2.5-4.9)
[2018-02-09] MEDS ORDERED: DEXTROSE 5%-WATER 100 ML IVPB ONE (10:12)
[2018-02-09] MEDS: SODIUM CHLORIDE NASAL SPRAY 44 ML BOTTLE NS SCH ×2 (10:17→22:42)
[2018-02-09] MEDS: SENNOSIDES/DOCUSATE COMBO (SENNA PLUS) TABLET (UD) PO SCH ×2 (10:17→22:43)
[2018-02-09] MEDS: CEFTRIAXONE 2 GM in DEXTROSE 5%-WATER 100 ML IVPB SCH (10:17)
[2018-02-09] MEDS: LORATADINE 10 MG TABLET PO SCH (10:17)
--- NOTE | 2018-02-09 10:19 | PN ---
Physical Exam: SUBJECTIVE: Patient seen and examined at bedside. Sitter at bedside, seen by ENT this AM. Pt calm today and at baseline as per aid. No acute events. OBJECTIVE: Vital Signs Period Temp Pulse Resp BP Sys/Jackson Pulse Ox Last 24 Hr 97.8 F-98.3 F 80-96 18-22 121-146/52-106 GENERAL: The patient is at baseline. calm. awake, alert, and fully oriented, in no acute distress. HEAD: Normal with no signs of trauma. EYES: PERRL, extraocular movements intact, sclera anicteric, conjunctiva clear. ENT: Ears normal, nares patent, oropharynx clear without exudates, moist mucous membranes NECK: Trachea midline, full range of motion, supple. LUNGS: Breath sounds equal, clear to auscultation bilaterally, no wheezes, no crackles, no accessory muscle use. No stridor appreciated HEART: Regular rate and rhythm, S1, S2 with +systolic murmur appreciated LUSB ABDOMEN: Soft, nontender, nondistended EXTREMITIES: 2+ dp pulses, warm, well-perfused, no edema. NEUROLOGICAL: Cranial nerves II through XII appear to be grossly intact PSYCH: Normal mood, normal affect. SKIN: Warm, dry, normal turgor, no rashes or lesions noted Laboratory Results - last 24 hr 02/09/18 02/09/18 07:00 07:00 WBC 5.9 RBC 3.92 L Hgb 13.8 Hct 40.2 MCV 102.5 H MCH 35.2 H MCHC 34.4 RDW 12.6 Plt Count 204 MPV 8.7 Neutrophils % 69.8 Lymphocytes % 22.2 Monocytes % 7.4 Eosinophils % 0.0 D Basophils % 0.6 Nucleated RBC % 0 Sodium 142 Potassium 4.4 Chloride 108 H Carbon Dioxide 27 Anion Gap 7 L BUN 18 Creatinine 0.9 Random Glucose 84 Calcium 8.5 Phosphorus 4.8 D Magnesium 2.3 Active Medications Generic Name Dose Route Start Last Admin Trade Name Freq PRN Reason Stop Dose Admin Albuterol/Ipratropium 1 amp 02/06/18 16:56 02/08/18 21:18 Duoneb - NEB 1 amp Q6H PRN Administration SHORTNESS OF BREATH Bisacodyl 10 mg 02/06/18 16:56 Dulcolax Suppository - RC PRN PRN CONSTIPATION Epinephrine 1 vial 02/08/18 12:02 S-2 NEB Q8H PRN SHORTNESS OF BREATH Heparin Sodium (Porcine) 5,000 unit 02/06/18 16:00 02/09/18 07:59 Heparin - SQ Not Given TID TANISHA Ceftriaxone Sodium 2 gm/ 100 mls @ 200 mls/hr 02/07/18 10:00 02/08/18 09:50 Dextrose IVPB 200 mls/hr DAILY TANISHA Administration Levothyroxine Sodium 75 mcg 02/07/18 07:00 02/09/18 08:02 Synthroid - PO Not Given DAILY@0700 TANISHA Loratadine 10 mg 02/07/18 10:00 02/08/18 09:50 Claritin - PO 10 mg DAILY TANISHA Administration Multi-Ingredient Ointment 1 applic 02/07/18 11:15 02/08/18 23:31 Zinc Oxide TP 1 applic BID TANISHA Administration Neomycin/Polymyxin/Dexamethasone 1 applic 02/06/18 22:00 02/08/18 23:19 Maxitrol Eye Ointment - OU 1 applic HS TANISHA Administration Neomycin/Polymyxin/Dexamethasone 2 drop 02/06/18 18:00 02/09/18 08:00 Maxitrol Eye Drops - OU Not Given Q6HPO TANISHA Senna/Docusate Sodium 1 tablet 02/06/18 22:00 02/08/18 23:19 Pericolace - PO 1 tablet BID TANISHA Administration Sodium Chloride 1 spray 02/06/18 22:00 02/08/18 23:19 [place] Nasal [place] - NS 1 spray BID TANISHA Administration EKG sinus tach, vent rate 109, [place] 128ms, QRS 152ms, Qtc 511ms Microbiology 02/07/18 15:45 Nares - Mrsa Screen - Right MRSA Screen - Final NO MRSA ISOLATED 02/07/18 15:45 Nares - Mrsa Screen - Left MRSA Screen - Final NO MRSA ISOLATED 02/07/18 08:40 Urine For Antigen Detection Legionella Antigen - Final 02/07/18 08:40 Urine For Antigen Detection Streptococcus pneumoniae Antigen (M - Final 02/07/18 08:40 Urine - Urine - Catheterized Urine Culture - Final NO GROWTH OBTAINED 02/07/18 15:45 Nasopharyngeal Swab Respiratory Virus (PCR) - Preliminary 02/05/18 23:45 Blood - Peripheral Venous Blood Culture - Preliminary NO GROWTH OBTAINED AFTER 72 HOURS, INCUBATION TO CONTINUE FOR 2 DAYS. ASSESSMENT/PLAN: 47 y/o M with PMH of severe mental retardation, Down's syndrome, pericardial effusion, systolic dysfunction, congenital heart anomaly, hypothyroidism, lymphocytic thyroiditis, MRSA infection, cataracts, decreased hearing b/l, congenital deformity of the hand, upper extremities, and shoulder girdle, who was brought to the ED from [place] d/t continued cough since this evening. Pt admitted for sepsis 2/2 CAP #Sepsis 2/2 community acquired PNA -received zosyn 3.375 x 1 in ED -started on ceftriaxone 2g IVPB qd for CAP coverage- Today is Day4; allergic to azithromycin -duonebs q6h PRN for SOB - has not required in PM -repeat EKG 492 (from 511) -UCx, nares, Urine legionella, PCR, blood cx (-) #Stridor - new onset. Improved -May be 2/2 RSV, epiglottitis -RSV panel preliminary (-) -started on racemic epinephrine 1 vial neb q8h PRN for SOB - has not required -F/u Soft tissue neck XR -to determine if inflammation. Still pending. -ENT Eval - d/w Dr. Angulo, as per sitter no further visualization needed as pt breathing status has improved #h/o MRSA -MRSA screen as per infection control (-) -Contact precautions #hx pericardial effusion, systolic dysfunction -telemetry monitoring #Hypothyroid -Continue synthroid 75mcg PO qd #Bowel regimen -Continue senna/docusate sodium 1 tablet PO BID #Umbilical rash -Continue zinc oxide 1 applic TP BID #F/E/N -no IVF at this time -continue to follow lytes -dysphagia puree with thin liquids #PPX Hep SQ 5000 BID #Dispo -Continued monitoring on med-surg will reevaluate after neck XR has returned for possible dc Visit type - Emergency Visit Emergency Visit: No - New Patient This patient is new to me today: No - Critical Care Critical Care patient: No
[2018-02-09] MEDS: ZINC OXIDE 20% TOPICAL OINTMENT 30 GM TUBE TP SCH ×2 (11:42→22:42)
--- NOTE | 2018-02-09 18:06 | PN ---
Teaching Attending Note Name of Resident: Dary Markham ATTENDING PHYSICIAN STATEMENT I saw and evaluated the patient. I reviewed the resident's note and discussed the case with the resident. I agree with the resident's findings and plan as documented. SUBJECTIVE: Patient appears comfortable. OBJECTIVE: Vital Signs Period Temp Pulse Resp BP Sys/Jackson Pulse Ox Last 24 Hr 98.3 F-98.8 F 80-93 18-22 115-146/52-91 HEART: S1S2, RRR LUNGS: Clear ABDOMEN: Soft, non-distended, normal BS EXTREMITIES: No edema Laboratory Results - last 24 hr 02/09/18 02/09/18 07:00 07:00 WBC 5.9 RBC 3.92 L Hgb 13.8 Hct 40.2 MCV 102.5 H MCH 35.2 H MCHC 34.4 RDW 12.6 Plt Count 204 MPV 8.7 Neutrophils % 69.8 Lymphocytes % 22.2 Monocytes % 7.4 Eosinophils % 0.0 D Basophils % 0.6 Nucleated RBC % 0 Sodium 142 Potassium 4.4 Chloride 108 H Carbon Dioxide 27 Anion Gap 7 L BUN 18 Creatinine 0.9 Random Glucose 84 Calcium 8.5 Phosphorus 4.8 D Magnesium 2.3 Current Medications Generic Name Dose Route Start Last Admin Trade Name Freq PRN Reason Stop Dose Admin Albuterol/Ipratropium 1 amp 02/06/18 16:56 02/08/18 21:18 Duoneb - NEB 1 amp Q6H PRN Administration SHORTNESS OF BREATH Bisacodyl 10 mg 02/06/18 16:56 Dulcolax Suppository - RC PRN PRN CONSTIPATION Epinephrine 1 vial 02/08/18 12:02 S-2 NEB Q8H PRN SHORTNESS OF BREATH Heparin Sodium (Porcine) 5,000 unit 02/06/18 16:00 02/09/18 13:19 Heparin - SQ 5,000 unit TID TANISHA Administration Ceftriaxone Sodium 2 gm/ 100 mls @ 200 mls/hr 02/07/18 10:00 02/09/18 10:17 Dextrose IVPB 200 mls/hr DAILY TANISHA Administration Levothyroxine Sodium 75 mcg 02/07/18 07:00 02/09/18 08:02 Synthroid - PO Not Given DAILY@0700 TANISHA Loratadine 10 mg 02/07/18 10:00 02/09/18 10:17 Claritin - PO 10 mg DAILY TANISHA Administration Multi-Ingredient Ointment 1 applic 02/07/18 11:15 02/09/18 11:42 Zinc Oxide TP 1 applic BID TANISHA Administration Neomycin/Polymyxin/Dexamethasone 1 applic 02/06/18 22:00 02/08/18 23:19 Maxitrol Eye Ointment - OU 1 applic HS TANISHA Administration Neomycin/Polymyxin/Dexamethasone 2 drop 02/06/18 18:00 02/09/18 17:27 Maxitrol Eye Drops - OU 2 drop Q6HPO TANISHA Administration Senna/Docusate Sodium 1 tablet 02/06/18 22:00 02/09/18 10:17 Pericolace - PO 1 tablet BID TANISHA Administration Sodium Chloride 1 spray 02/06/18 22:00 02/09/18 10:17 [place] Nasal [place] - NS 1 spray BID TANISHA Administration ASSESSMENT AND PLAN: This is a 47 year old man with a history of Down syndrome, severe MR, pericardial effusion, systolic dysfunction, hypothyroidism, lymphatic thyroiditis, congenital heart defect who presented from [facility] with productive cough. 1. Pneumonia - Continue Rocephin 2. Stridor - Resolved 3. Hypothyroidism - Continue Synthroid 4. Down syndrome with intellectual disability 5. Congenital heart defect 6. Systolic dysfunction 7. Prolonged QTc
[2018-02-09] MEDS: NEO/POLYMYX B SULF/DEXAMETH OPHTHALMIC OINTMENT 3.5 GM OU SCH (22:44)
[2018-02-10] MEDS: NEO/POLYMYX B SULF/DEXAMETH OPHTHALMIC 5ML BOTTLE OU SCH ×3 (00:14→11:45)
[2018-02-10] MEDS: LEVOTHYROXINE NA 75 MCG TABLET (FP) PO SCH (06:15)
[2018-02-10] MEDS: HEPARIN NA (PORCINE) 5,000 UNITS/ML 1ML VIAL SQ SCH ×2 (06:30→14:51)
[2018-02-10 08:27] LABS: BASO % 1.2 % (0-2.0); EOS % 1.5 % (0-4.5); HEMATOCRIT 40.9 % (35.4-49); LYMPH % 30.4 % (8-40); MCH 35.3 pg (25.7-33.7); MCHC 34.2 g/dl (32.0-35.9); MEAN CELL VOLUME 103.2 fl (80-96); MEAN PLT VOLUME 8.5 fl (7.5-11.1); MONO % 10.4 % (3.8-10.2); NEUT % 56.5 % (42.8-82.8); PLATELET COUNT 187 K/MM3 (134-434); RBC 3.96 M/mm3 (4.00-5.60); RDW 12.7 % (11.9-15.9); WHITE BLOOD COUNT 6.4 K/mm3 (4.0-10.0)
[2018-02-10 08:58] LABS: ANION GAP 6 (8-16); BLOOD UREA NITROGEN 16 mg/dL (7-18); CALCIUM 8.3 mg/dL (8.5-10.1); CHLORIDE 108 mmol/L (98-107); CO2 28 mmol/L (21-32); GLUCOSE,RANDOM 75 mg/dL (74-106); POTASSIUM 4.4 mmol/L (3.5-5.1); SODIUM 142 mmol/L (136-145)
[2018-02-10] MEDS ORDERED: PT OWN MED DRAWER 7, Y5N ONE ×3 (10:49→11:44)
[2018-02-10] MEDS: LORATADINE 10 MG TABLET PO SCH (10:52)
[2018-02-10] MEDS: SENNOSIDES/DOCUSATE COMBO (SENNA PLUS) TABLET (UD) PO SCH (10:52)
[2018-02-10] MEDS: ZINC OXIDE 20% TOPICAL OINTMENT 30 GM TUBE TP SCH (10:57)
[2018-02-10] MEDS: SODIUM CHLORIDE NASAL SPRAY 44 ML BOTTLE NS SCH (10:57)
--- NOTE | 2018-02-10 15:16 | DS ---
Physical Exam: SUBJECTIVE: Patient seen and examined at bedside. No acute events overnight. Pt breathing well. Today, sitter at bedside, states that pt is at his baseline. OBJECTIVE: Vital Signs Period Temp Pulse Resp BP Sys/Jackson Pulse Ox Last 24 Hr 98.8 F-99.6 F 84-96 18-20 105-134/62-91 95-97 PHYSICAL EXAM GENERAL: The patient is sitting in bed, awake, alert, and interactive, in no acute distress. Sitter at bedside HEAD: Normal with no signs of trauma. EYES: PERRL, extraocular movements intact, sclera anicteric, conjunctiva clear. ENT: Ears normal, nares patent, oropharynx clear without exudates, moist mucous membranes. NECK: Trachea midline, supple. LUNGS: Breath sounds equal, clear to auscultation bilaterally, no wheezes, no crackles, no accessory muscle use. HEART: Regular rate and rhythm, S1, S2 without murmur, rub or gallop. ABDOMEN: Soft, nontender, nondistended, normoactive bowel sounds, no guarding, no rebound EXTREMITIES: 2+ pt, dp pulses, warm, well-perfused, no edema. NEUROLOGICAL: Cranial nerves II through XII grossly intact. PSYCH: at baseline SKIN: Warm, dry, normal turgor LABS 02/10/18 02/10/18 06:54 06:54 WBC 6.4 RBC 3.96 L Hgb 14.0 Hct 40.9 MCV 103.2 H MCH 35.3 H MCHC 34.2 RDW 12.7 Plt Count 187 MPV 8.5 Neutrophils % 56.5 Lymphocytes % 30.4 D Monocytes % 10.4 H Eosinophils % 1.5 D Basophils % 1.2 Nucleated RBC % 0 Sodium 142 Potassium 4.4 Chloride 108 H Carbon Dioxide 28 Anion Gap 6 L BUN 16 Creatinine 1.0 Random Glucose 75 Calcium 8.3 L 02/05/18 02/05/18 02/06/18 23:42 23:42 05:55 WBC 12.9 H D 10.8 H BUN 19 H D Creatinine 1.0 D 02/06/18 02/07/18 02/07/18 05:55 06:15 06:15 WBC 4.9 D BUN 15 D 17 Creatinine 0.9 0.9 05/22/18 05/23/18 05/23/18 07:30 07:00 07:00 WBC 5.9 BUN 20 H 18 Creatinine 1.0 0.9 02/10/18 06:54 WBC 6.4 EKG sinus tach, vent rate 109, [place] 128ms, QRS 152ms, Qtc 511ms Microbiology 02/07/18 15:45 Nares - Mrsa Screen - Right MRSA Screen - Final NO MRSA ISOLATED 02/07/18 15:45 Nares - Mrsa Screen - Left MRSA Screen - Final NO MRSA ISOLATED 02/07/18 08:40 Urine For Antigen Detection Legionella Antigen - Final 02/07/18 08:40 Urine For Antigen Detection Streptococcus pneumoniae Antigen (M - Final 02/07/18 08:40 Urine - Urine - Catheterized Urine Culture - Final NO GROWTH OBTAINED 02/07/18 15:45 Nasopharyngeal Swab Respiratory Virus (PCR) - Preliminary 02/05/18 23:45 Blood - Peripheral Venous Blood Culture - Preliminary NO GROWTH OBTAINED AFTER 72 HOURS, INCUBATION TO CONTINUE FOR 2 DAYS. Imaging 02/05/18: CXR: imaging reveals hand and wrist artifact projected over left midlung field. there is an apical lordotic projection with the healed fracture deformity of the right clavicle. There is a large heart with fullness of te yasir. A pneumothorax is not seen. A left perihilar infiltrate can't be excluded because of the hand and wrist artifact. The angles are sharp and the soft tissues are intact and the patient is rotated. Correlation and follow-up are recommended. 02/07/18: CXR: large heart, marked fullness of yasir and some atelectatic changes but no sign of a gross infiltrate or pneumothorax. correlation recommended. 02/08/18: Soft tissue neck XR: without foreign body, or swelling/inflammation. [facility] HOSPITAL COURSE: Date of Admission:02/06/18 Date of Discharge: 02/10/18 Admit diagnosis: community acquired pneumonia 47 y/o M with PMH of severe mental retardation, Down's syndrome, pericardial effusion, systolic dysfunction, congenital heart anomaly, hypothyroidism, lymphocytic thyroiditis, MRSA infection, cataracts, decreased hearing b/l, congenital deformity of the hand, upper extremities, and shoulder girdle, who was brought to the ED from [place] d/t continued cough on evening of admission. As per aid, at 5pm, she noticed that the patient was wheezing and coughing, so she gave him a nebulizer tx. His sx didn't subside, so she called the doctor publications editor, who recommended checking his vitals which were 02 sat 89%, BP 113/76. D/t his low 02 sat, he recommended she bring the pt to the hospital. During this time, pt with persistent productive cough which caused one episode of NBNB emesis at the home. Pt ROS limited d/t pt's mental condition. Admitted for sepsis 2/2 community acquired PNA. While pt was in the hospital, he completed a five day course of Rocephin 2g. He is being discharged on two extra days of Ceftin 500mg suspension BID to complete a total seven day course. These prescriptions have been sent to [facility] and have been d/w Dr. Coto. Pt had Ucx, blood cx, as well as urine checked for Legionella, strep pneumo- all of which were negative. Pt was also found to have new onset stridor during his hospitalization, however RSV panel was negative for any viral etiology. He was started on racemic epinephrine 1 vial neb q8h PRN with good improvement, and soft tissue neck XR did not determine any foreign body or signs of inflammation. Pt was also evaluated by an ENT specialist during this time, who noted his improvement. Pt's EKG was also monitored closely d/t initial elevated Qtc 511 - on repeat, it was found to be 492. He will continue follow up at [place] with Dr. Coto. Minutes to complete discharge: 40 Discharge Summary Reason For Visit: PNEUMONIA, TACHYCARDI Current Active Problems Pneumonia (Acute) Stridor (Acute) Tachycardia (Acute) Condition: Guarded - Instructions Diet, Activity, Other Instructions: You were in the hospital due to cough and you were treated for pneumonia with IV antibiotics. While you were here, you also were found to have stridor. You were treated with epinephrine and seen by an ear, nose and throat (ENT) specialist. You also had imaging done of your neck which did not show any abnormality. We are sending you home on Ceftin 500mg (suspension) twice a day, for the next two days. You will take this medication on 02/11/18 (tomorrow) and 02/12/18. While you were in the hospital, you took the antibiotic rocephin 2grams IV for 5 days. You may resume your home medications. Please follow-up with your physician, Dr. Coto upon your return to [place]. If you develop stridor, or difficulty breathing, please go to the hospital. We hope you feel better soon. Referrals: Wilfred Coto Jr [Primary Care Provider] - 1 Week Disposition: HOME - Home Medications Comprehensive Discharge Medication List: Ambulatory Orders Loratadine [Claritin] 10 mg PO DAILY 01/17/12 Multivitamin [Animal Shapes Vitamins] 1 tab PO DAILY 01/17/12 [place]-3 Fatty Acids/Fish Oil [Fish Oil 1,000 mg Softgel] 1 each PO DAILY Levothyroxine [Synthroid -] 100 mcg PO DAILY 10/06/14 Sodium Chloride [Saline Nasal [place]] 30 ml NS BID 10/06/14 Kobi/Polymyx B Sulf/Dexameth [Maxitrol -] 1 applic OU HS #1 tube 02/21/15 Kobi/Polymyx B Sulf/Dexameth [Maxitrol Eye Drops -] 2 drop OU Q6HPO drops Albuterol Sulfate Inhaler - [Ventolin HFA Inhaler -] 02/06/18 Bisacodyl [Dulcolax] 10 mg RC PRN 02/06/18 Diazepam 2 mg PO PRN 02/06/18 Phenyleph/Mineral Oil/Petrolat [Preparation H Ointment] 4 drop AU DAILY Ranitidine HCl 75 mg PO DAILY 02/06/18 Sennosides [Senna] 8.6 mg PO DAILY 02/06/18 Cefuroxime Axetil Suspension [Ceftin Oral Suspension -] 500 mg PO BID 2 Days # 200 ml 02/10/18 This patient is new to me today: No Emergency Visit: No Critical Care patient: No - Discharge Referral Referred to [facility] No
[2018-02-10 16:03] VITALS: BP 110/72; PULSE 98; TEMP 98.5
--- NOTE | 2018-02-10 16:27 | PN ---
Teaching Attending Note Name of Resident: Dary Markham ATTENDING PHYSICIAN STATEMENT I saw and evaluated the patient. I reviewed the resident's note and discussed the case with the resident. I agree with the resident's findings and plan as documented. SUBJECTIVE: Patient appears comfortable. OBJECTIVE: Vital Signs Period Temp Pulse Resp BP Sys/Jackson Pulse Ox Last 24 Hr 98.5 F-99.6 F 84-98 18-22 105-134/62-91 95-97 HEART: S1S2, RRR LUNGS: Clear ABDOMEN: Soft, non-distended, normal BS EXTREMITIES: No edema Laboratory Results - last 24 hr 02/10/18 02/10/18 06:54 06:54 WBC 6.4 RBC 3.96 L Hgb 14.0 Hct 40.9 MCV 103.2 H MCH 35.3 H MCHC 34.2 RDW 12.7 Plt Count 187 MPV 8.5 Neutrophils % 56.5 Lymphocytes % 30.4 D Monocytes % 10.4 H Eosinophils % 1.5 D Basophils % 1.2 Nucleated RBC % 0 Sodium 142 Potassium 4.4 Chloride 108 H Carbon Dioxide 28 Anion Gap 6 L BUN 16 Creatinine 1.0 Random Glucose 75 Calcium 8.3 L Current Medications Generic Name Dose Route Start Last Admin Trade Name Freq PRN Reason Stop Dose Admin Albuterol/Ipratropium 1 amp 02/06/18 16:56 02/08/18 21:18 Duoneb - NEB 1 amp Q6H PRN Administration SHORTNESS OF BREATH Bisacodyl 10 mg 02/06/18 16:56 Dulcolax Suppository - RC PRN PRN CONSTIPATION Epinephrine 1 vial 02/08/18 12:02 S-2 NEB Q8H PRN SHORTNESS OF BREATH Heparin Sodium (Porcine) 5,000 unit 02/06/18 16:00 02/10/18 14:51 Heparin - SQ 5,000 unit TID TANISHA Administration Levothyroxine Sodium 75 mcg 02/07/18 07:00 02/10/18 06:15 Synthroid - PO 75 mcg DAILY@0700 TANISHA Administration Loratadine 10 mg 02/07/18 10:00 02/10/18 10:52 Claritin - PO 10 mg DAILY TANISHA Administration Multi-Ingredient Ointment 1 applic 02/07/18 11:15 02/10/18 10:57 Zinc Oxide TP 1 applic BID TANISHA Administration Neomycin/Polymyxin/Dexamethasone 1 applic 02/06/18 22:00 02/09/18 22:44 Maxitrol Eye Ointment - OU 1 applic HS TANISHA Administration Neomycin/Polymyxin/Dexamethasone 2 drop 02/06/18 18:00 02/10/18 11:45 Maxitrol Eye Drops - OU 2 drop Q6HPO TANISHA Administration Senna/Docusate Sodium 1 tablet 02/06/18 22:00 02/10/18 10:52 Pericolace - PO 1 tablet BID TANISHA Administration Sodium Chloride 1 spray 02/06/18 22:00 02/10/18 10:57 Dell Imnaha Nasal Imnaha - NS 1 spray BID TANISHA Administration ASSESSMENT AND PLAN: This is a 47 year old man with a history of Down syndrome, severe MR, pericardial effusion, systolic dysfunction, hypothyroidism, lymphatic thyroiditis, congenital heart defect who presented from [facility] with productive cough. 1. Pneumonia - Continue Rocephin - change to Ceftin at discharge 2. Stridor - Resolved 3. Hypothyroidism - Continue Synthroid 4. Down syndrome with intellectual disability 5. Congenital heart defect 6. Systolic dysfunction 7. Prolonged QTc 8. Ok for discharge to [facility]
[2018-02-10] MEDS: ALBUTEROL SO4 2.5/IPRATROPIUM 0.5 INH SOL 3 ML VIAL.NEB. NEB PRN (17:34)
== END 2018-02-10 18:54 | disposition home or self-care (01) | DRG 871 ==
LOC: JER 21:24 → JERBED 02-06 02:52 → UNDOADMIN 02-06 02:57 → JERBED 02-06 02:57 → J8W 02-06 15:08
PROVIDERS: ADMIT Internal Medicine; ATTEND Internal Medicine
DX: A41.9 Sepsis, unspecified organism (principal); J18.9 Pneumonia, unspecified organism; F72 Severe intellectual disabilities; J98.11 Atelectasis; J05.10 Acute epiglottitis without obstruction; Q90.9 Down syndrome, unspecified; E03.9 Hypothyroidism, unspecified; H91.8X3 Other specified hearing loss, bilateral; Q24.8 Other specified congenital malformations of heart; I45.81 Long QT syndrome; R06.1 Stridor; R21 Rash and other nonspecific skin eruption; R00.0 Tachycardia, unspecified
CPT/HCPCS: 36415; 70360-TC-FY; 71045-TC-FY; 80048; 80053; 81003; 83605; 83735; 84100; 84484; 85025; 87040; 87081; 87086; 87633; 87899; 93005; 93010; 94640; 99283-25; J0131; J1644; J7620

== ENCOUNTER 2018-03-02 12:54 | Inpatient (IN) | payer OTHER ==
[2018-03-02 13:47] VITALS: BMI 20.8
--- NOTE | 2018-03-02 15:29 | PDOC ---
History of Present Illness - History of Present Illness Initial Comments: 03/02/18 16:15 Patient is a 47-year-old male from [facility], with a significant past medical history of severe mental retardation, down syndrome, pericardial effusion, systolic dysfunction, congenital heart anomaly, hypothyroidism who was brought by nursing director to the ED with complaints of wheezing. She noted that the patient was wheezing earlier today in his day program, but states he looks much better now after getting nebs en route to the ED. On exam, she reports that the patient is behaving at his baseline. Patients aide denies any fever, vomiting, or diarrhea. Denies any frequency or hematuria. Allergies: Azithromycin <Naomy Resendiz - Last Filed: 03/02/18 17:53> <Mable Carson - Last Filed: 03/02/18 18:56> - General Chief Complaint: Asthma Stated Complaint: WHEEZING Time Seen by Provider: 03/02/18 14:52 Past History - Past Medical History Cardiac Disorders: Yes (ANOMALY OF HEART) COPD: No Thyroid Disease: Yes (THYROIDITIS) - Immunization History Immunization Up to Date: Yes - Suicide/Smoking/Psychosocial Hx Smoking Status: No Smoking History: Never smoked Number of Cigarettes Smoked Daily: 0 Hx Alcohol Use: No Drug/Substance Use Hx: No Substance Use Type: None Hx Substance Use Treatment: No <Naomy Resendiz - Last Filed: 03/02/18 17:53> <Mable Carson - Last Filed: 03/02/18 18:56> - Past Medical History Allergies/Adverse Reactions: Allergies Allergy/AdvReac Type Severity Reaction Status Date / Time azithromycin [From Zithromax] Allergy Verified 03/02/18 13:24 Home Medications: Ambulatory Orders Loratadine [Claritin] 10 mg PO DAILY 01/17/12 Multivitamin [Animal Shapes Vitamins] 1 tab PO DAILY 01/17/12 [place]-3 Fatty Acids/Fish Oil [Fish Oil 1,000 mg Softgel] 1 each PO DAILY Levothyroxine [Synthroid -] 100 mcg PO DAILY 10/06/14 Sodium Chloride [Saline Nasal [place]] 30 ml NS BID 10/06/14 Kobi/Polymyx B Sulf/Dexameth [Maxitrol -] 1 applic OU HS #1 tube 02/21/15 Kobi/Polymyx B Sulf/Dexameth [Maxitrol Eye Drops -] 2 drop OU Q6HPO drops Albuterol Sulfate Inhaler - [Ventolin HFA Inhaler -] 02/06/18 Bisacodyl [Dulcolax] 10 mg RC PRN 02/06/18 Diazepam 2 mg PO PRN 02/06/18 Phenyleph/Mineral Oil/Petrolat [Preparation H Ointment] 4 drop AU DAILY Ranitidine HCl 75 mg PO DAILY 02/06/18 Sennosides [Senna] 8.6 mg PO DAILY 02/06/18 Cefuroxime Axetil Suspension [Ceftin Oral Suspension -] 500 mg PO BID 2 Days # 200 ml 02/10/18 Review of Systems - Review of Systems Comments:: 03/02/18 16:16 UTO <Naomy Resendiz - Last Filed: 03/02/18 17:53> *Physical Exam - Vital Signs Last Vital Signs Temp Pulse Resp BP Pulse Ox 98.9 F 130 H 20 128/77 90 L 03/02/18 13:15 03/02/18 13:15 03/02/18 13:15 03/02/18 13:15 03/02/18 13:15 - Physical Exam Comments: 03/02/18 16:16 GENERAL: Awake, alert HEAD: No signs of trauma NECK: Normal ROM, supple, no lymphadenopathy, JVD, or masses LUNGS: Breath sounds equal, clear to auscultation bilaterally. No wheezes, and no crackles HEART: Regular rate and rhythm, normal S1 and S2, no murmurs, rubs or gallops ABDOMEN: Soft, nontender, normoactive bowel sounds. No guarding, no rebound. No masses EXTREMITIES: L hand with amputated digits, LE WWP BACK: No midline spinal tenderness in cervical/thoracic/lumbar region NEUROLOGICAL: not cooperative with exam due to MR SKIN: Warm, Dry, normal turgor, no rashes or lesions noted. <Naomy Resendiz - Last Filed: 03/02/18 17:53> - Vital Signs Last Vital Signs Temp Pulse Resp BP Pulse Ox 98.9 F 130 H 20 128/77 90 L 03/02/18 13:15 03/02/18 13:15 03/02/18 13:15 03/02/18 13:15 03/02/18 13:15 <Mable Carson - Last Filed: 03/02/18 18:56> ED Treatment Course - LABORATORY CBC & Chemistry Diagram: 03/02/18 15:15 03/02/18 15:15 - RADIOLOGY Radiology Studies Ordered: Category Date Time Status CHEST X-RAY PORTABLE* [RAD] Stat Radiology 03/02/18 15:28 Ordered <Naomy Resendiz - Last Filed: 03/02/18 17:53> - LABORATORY CBC & Chemistry Diagram: 03/02/18 15:15 03/02/18 15:15 - ADDITIONAL ORDERS Additional order review: Laboratory Results 03/02/18 15:15 Sodium 139 Potassium 4.2 Chloride 102 Carbon Dioxide 27 Anion Gap 10 BUN 16 Creatinine 1.0 Creat Clearance w eGFR > 60 Random Glucose 100 D Calcium 8.9 Total Bilirubin 0.5 AST 23 D ALT 25 Alkaline Phosphatase 106 Total Protein 7.6 Albumin 3.1 L 03/02/18 15:15 RBC 4.05 MCV 103.0 H MCHC 34.3 RDW 13.3 MPV 8.5 Neutrophils % No Result Required. Lymphocytes % No Result Required. - RADIOLOGY Radiology Studies Ordered: 03/02/18 18:55 Chest X-Ray was reviewed by Dr. Resendiz and over-read by Radiology. Impression: Moderate cardiomegaly and likely mild pulmonary venous congestion. Enlarged right hilum again seen with limited visualization of the left hilum due to the patient's position. Rule out lymphadenopathy. Interval focal opacity in the right midlung measuring 4 cm suggestive of airspace disease/pneumonia. <Mable Carson - Last Filed: 03/02/18 18:56> Medical Decision Making - Medical Decision Making 03/02/18 15:38 47yo M with MMP including MR, asthma presents to the ED with wheezing while at his day program. HR was 130 on arrival, likely as pt just received nebs. O2 sat was 90% on arrival, however was 95% on my eval on RA. Lungs are clear. Pt's aide states he appears well and at baseline. Will repeat vitals, obtain basic labs, and CXR and reassess. 03/02/18 17:53 Pt found to have leukocytosis to 23 (up from 6 in January) with new infiltrate on CXR. Given recent admission, pt covered with vanc/zosyn and admitted. Case discussed with SOLID SURFACE FABRICATOR Rhonda. Case discussed in detail with admitting physician including history, physical exam and ancillary studies. Admitting physician has assumed care for the patient, will follow all pending diagnostics and will complete the evaluation and treatment. <Naomy Resendiz - Last Filed: 03/02/18 17:53> *DC/Admit/Observation/Transfer - Discharge Dispostion Decision to Admit order: Yes - Attestations Physician Attestion: 03/02/18 17:57 I, Dr. Naomy Resendiz MD, attest that this document has been prepared under my direction and personally reviewed by me in its entirety. I further attest, that it accurately reflects all work, treatment, procedures and medical decision -making performed by me. <Naomy Resendiz - Last Filed: 03/02/18 17:53> <Mable Carson - Last Filed: 03/02/18 18:56> Diagnosis at time of Disposition: Pneumonia - Discharge Dispostion Condition at time of disposition: Stable
[2018-03-02 16:36] LABS: HEMATOCRIT 41.7 % (35.4-49); HEMOGLOBIN 14.3 GM/dL (11.7-16.9); MCH 35.3 pg (25.7-33.7); MCHC 34.3 g/dl (32.0-35.9); MEAN PLT VOLUME 8.5 fl (7.5-11.1); PLATELET COUNT 250 K/MM3 (134-434); RBC 4.05 M/mm3 (4.00-5.60); RDW 13.3 % (11.9-15.9); WHITE BLOOD COUNT 23.4 K/mm3 (4.0-10.0)
[2018-03-02 16:59] LABS: ALBUMIN 3.1 g/dl (3.4-5.0); ANION GAP 10 (8-16); BLOOD UREA NITROGEN 16 mg/dL (7-18); CALCIUM 8.9 mg/dL (8.5-10.1); CHLORIDE 102 mmol/L (98-107); CO2 27 mmol/L (21-32); GLUCOSE,RANDOM 100 mg/dL (74-106); POTASSIUM 4.2 mmol/L (3.5-5.1); SGOT/AST 23 U/L (15-37); SGPT/ALT 25 U/L (12-78); SODIUM 139 mmol/L (136-145)
[2018-03-02 17:01] LABS: ALK PHOS 106 U/L (45-117); BILIRUBIN,TOTAL 0.5 mg/dL (0.2-1.0); TOT PROT 7.6 g/dl (6.4-8.2)
[2018-03-02] MEDS ORDERED: PIPERACILLIN/TAZOB 4.5 GM 4.5 GM in DEXTROSE 5%-WATER - 100 ML IVPB ONE (17:43)
[2018-03-02] MEDS ORDERED: VANCOMYCIN 1,000 MG in DEXTROSE 5%-WATER - 250 ML IVPB ONE (17:43)
--- NOTE | 2018-03-02 18:01 | HP ---
Admitting History and Physical - Admission History of Present Illness: Information gathered from chart and ED attending, pt has new aid and This is a 47 year old male with pmhx of severe mental retardation, Down's syndrome, pericardial effusion, systolic dysfunction, congenital heart anomaly, hypothyroidism, lymphocytic thyroiditis, MRSA infection, cataracts, decreased hearing b/l, congenital deformity of the hand, upper extremities, and shoulder girdle recently admitted at [facility] for CAP, sent home 02/10/18, presented to the ED from [facility] after aid noted pt to have wheezing at his day program. PT received frederick in route to the ED, dose of vanc/zosyn after CXR noted to have right mid lung focal opacity. Currently, pt upright, no sob or wheezing noted, he is moving about in bed playing with toy. History Source: Medical Record Limitations to Obtaining History: Clinical Condition - Past Medical History JACKERMAN: Yes: Other (severe mental retardation) Cardiovascular: Yes: Other (congenital heart anomoly) Infectious Disease: Yes: MRSA Musculoskeletal: Yes: Other (multiple congenital deformities.) Endocrine: Yes: Hypothyroidism - Smoking History Smoking history: Never smoked Aproximately how many cigarettes per day: 0 - Alcohol/Substance Use Hx Alcohol Use: No - Social History Usual Living Arrangement: Yes: Assisted Living ADL: Support Services History of Recent Travel: No Home Medications - Allergies Allergies/Adverse Reactions: Allergies Allergy/AdvReac Type Severity Reaction Status Date / Time azithromycin [From Zithromax] Allergy Verified 03/02/18 13:24 - Home Medications Home Medications: Ambulatory Orders Loratadine [Claritin] 10 mg PO DAILY 01/17/12 Multivitamin [Animal Shapes Vitamins] 1 tab PO DAILY 01/17/12 [place]-3 Fatty Acids/Fish Oil [Fish Oil 1,000 mg Softgel] 1 each PO DAILY Levothyroxine [Synthroid -] 100 mcg PO DAILY 10/06/14 Sodium Chloride [Saline Nasal [place]] 30 ml NS BID 10/06/14 Kobi/Polymyx B Sulf/Dexameth [Maxitrol -] 1 applic OU HS #1 tube 02/21/15 Kobi/Polymyx B Sulf/Dexameth [Maxitrol Eye Drops -] 2 drop OU Q6HPO drops Albuterol Sulfate Inhaler - [Ventolin HFA Inhaler -] 02/06/18 Bisacodyl [Dulcolax] 10 mg RC PRN 02/06/18 Diazepam 2 mg PO PRN 02/06/18 Phenyleph/Mineral Oil/Petrolat [Preparation H Ointment] 4 drop AU DAILY Ranitidine HCl 75 mg PO DAILY 02/06/18 Sennosides [Senna] 8.6 mg PO DAILY 02/06/18 Cefuroxime Axetil Suspension [Ceftin Oral Suspension -] 500 mg PO BID 2 Days # 200 ml 02/10/18 Review of Systems Unable to obtain ROS, reason: see hpi Physical Examination Vital Signs: Vital Signs Temperature 98.9 F 03/02/18 13:15 Pulse Rate 130 H 03/02/18 13:15 Respiratory Rate 20 03/02/18 13:15 Blood Pressure 128/77 03/02/18 13:15 O2 Sat by Pulse Oximetry (%) 90 L 03/02/18 13:15 Constitutional: Yes: Calm Eyes: Yes: Ptosis, Other Neck: Yes: Supple Cardiovascular: Yes: Regular Rate and Rhythm, S1, S2 Respiratory: Yes: Regular, CTA Bilaterally, Diminished (left base) Gastrointestinal: Yes: Normal Bowel Sounds, Soft Musculoskeletal: Yes: WNL Extremities: Yes: Other (l hand amputations) Peripheral Pulses WNL: Yes Integumentary: Yes: WNL Neurological: Yes: Alert, Pre-Existing Deficit Labs: CBC, BMP 03/02/18 15:15 03/02/18 15:15 Imaging - Results X-ray: Report Reviewed, Image Reviewed Problem List - Problems (1) Pneumonia Code(s): J18.9 - PNEUMONIA, UNSPECIFIED ORGANISM (2) Down's syndrome Code(s): Q90.9 - DOWN SYNDROME, UNSPECIFIED (3) Mental retardation Code(s): F79 - UNSPECIFIED INTELLECTUAL DISABILITIES Assessment/Plan Assessment: 47 year old male with severe MR presented from [facility] with wheezing Plan: 1. Pneumonia - WBC elevated - Dose of vanco/zosyn given in ED - Lactic acid level pending - Albuterol nebs prn - Blood, urine cx pending - ID consulted 2. Hypothyroid - Cont synthroid 3. Leukocytosis - see above 4. DVT ppx - Heparin sq Visit type - Emergency Visit Emergency Visit: Yes Care time: The patient presented to the Emergency Department on the above date and was hospitalized for further evaluation of their emergent condition. - New Patient This patient is new to me today: Yes Date on this admission: 03/02/18 - Critical Care Critical Care patient: No Hospitalist Screening - Colonoscopy Questionnaire Colonoscopy Questionnaire: Colonoscopy Questionnaire - Patient: 50 - 75 years old and never had a screening colonoscopy: Unknown History of colon or rectal polyps, or CA: Unknown History of IBD, Crohn's disease or UC: Unknown History of abdominal radiation therapy as a child: Unknown - Relative: 1 with colon or rectal CA, or polyps at age 60 or younger: Unknown Colon or rectal CA diagnosed at age 45 or younger: Unknown Multiple relatives with colon or rectal CA: Unknown - Outcome: Screening Result: Negative Screen
[2018-03-02] MEDS ORDERED: ALBUTEROL SO4 0.083% IH SOL 2.5 MG/3 ML VIAL.NEB. NEB PRN (18:10)
[2018-03-02] MEDS ORDERED: ACETAMINOPHEN 325 MG TABLET (FP) PO PRN (18:13)
[2018-03-02] MEDS ORDERED: SODIUM CHLORIDE 1,000 ML IV SCH (18:15)
[2018-03-02 18:49] LABS: MACROCYTOSIS 1+; PLATELET ESTIMATE ADEQUATE
[2018-03-02] MEDS ORDERED: VANCOMYCIN 1 GRAM (PRE-DOCKED) 1,000 MG/250 ML BAG IVPB ONE (19:43)
[2018-03-02] MEDS ORDERED: PIPERACILLIN/TAZOB 4.5 GM 4.5 GM/100 ML BAG IVPB ONE (19:43)
[2018-03-02] MEDS: SODIUM CHLORIDE NASAL SPRAY 44 ML BOTTLE NS SCH (23:49)
[2018-03-02] MEDS: NEO/POLYMYX B SULF/DEXAMETH OPHTHALMIC 5ML BOTTLE OU SCH (23:49)
[2018-03-03] MEDS ORDERED: PIPERACILLIN/TAZOBACTAM 3.375 GM VIAL IVPB ONE (01:01)
[2018-03-03] MEDS ORDERED: DEXTROSE 5%-WATER - 50 ML IVPB ONE ×4 (01:01→23:37)
[2018-03-03] MEDS ORDERED: PIPERACILLIN/TAZOB 3.375 GM 3.375 GM in DEXTROSE 5%-WATER - 50 ML IVPB SCH (02:00)
[2018-03-03] MEDS ORDERED: PIPERACILLIN/TAZOB 3.375 GM 3.375 GM in DEXTROSE 5%-WATER - 50 ML IVPB ONE (02:00)
[2018-03-03] MEDS: LEVOTHYROXINE NA 100 MCG TABLET (FP) PO SCH (06:07)
[2018-03-03] MEDS: NEO/POLYMYX B SULF/DEXAMETH OPHTHALMIC 5ML BOTTLE OU SCH ×3 (06:07→17:38)
[2018-03-03] MEDS: HEPARIN NA (PORCINE) 5,000 UNITS/ML 1ML VIAL SQ SCH ×3 (07:00→23:57)
[2018-03-03 08:57] LABS: ALBUMIN 2.7 g/dl (3.4-5.0); ALK PHOS 91 U/L (45-117); ANION GAP 12 (8-16); BILIRUBIN,TOTAL 0.9 mg/dL (0.2-1.0); BLOOD UREA NITROGEN 18 mg/dL (7-18); CALCIUM 8.5 mg/dL (8.5-10.1); CHLORIDE 105 mmol/L (98-107); CO2 23 mmol/L (21-32); CREATININE 1.4 mg/dL (0.7-1.3); GLUCOSE,RANDOM 99 mg/dL (74-106); PHOSPHOROUS 3.6 mg/dL (2.5-4.9); SGOT/AST 22 U/L (15-37); SGPT/ALT 21 U/L (12-78); SODIUM 140 mmol/L (136-145); TOT PROT 6.9 g/dl (6.4-8.2)
[2018-03-03 09:02] LABS: BASO % 0.4 % (0-2.0); EOS % 0.1 % (0-4.5); HEMATOCRIT 39.7 % (35.4-49); HEMOGLOBIN 13.6 GM/dL (11.7-16.9); LYMPH % 6.2 % (8-40); MCH 35.3 pg (25.7-33.7); MCHC 34.2 g/dl (32.0-35.9); MEAN CELL VOLUME 103.2 fl (80-96); MEAN PLT VOLUME 8.6 fl (7.5-11.1); MONO % 6.7 % (3.8-10.2); NEUT % 86.6 % (42.8-82.8); PLATELET COUNT 209 K/MM3 (134-434); RBC 3.84 M/mm3 (4.00-5.60); RDW 13.1 % (11.9-15.9); WHITE BLOOD COUNT 13.8 K/mm3 (4.0-10.0)
[2018-03-03] MEDS ORDERED: MINERAL OIL AU SCH (10:00)
[2018-03-03] MEDS ORDERED: PETROLAT AU SCH (10:00)
[2018-03-03] MEDS ORDERED: PHENYLEPH AU SCH (10:00)
--- NOTE | 2018-03-03 10:36 | CONS ---
INFECTIOUS DISEASE CONSULTATION DATE OF CONSULTATION: DATE OF DICTATION: 03/03/2018 This is a 47-year-old male with known Down syndrome from [facility], who I am asked to see for evaluation of leukocytosis and pneumonia. The patient functionally is literally contracted from his head to his feet, being essentially folded completely and unable to resume any other position. He was recently here in January for treatment of a pneumonia, and I am asked to see him now as he presented to the emergency room with wheezing and was noted to have an elevated white blood cell count with an infiltrate. Of course, he can offer no meaningful history due to severe mental retardation. PAST MEDICAL HISTORY: Includes Down syndrome, pericardial effusion, congenital heart anomaly, hypothyroidism, lymphocytic thyroiditis, past history of MRSA infection, cataracts, bilateral hearing deformities, extensive contraction as noted. MEDICATIONS: Levothyroxine, diazepam. ALLERGIES: AZITHROMYCIN. SOCIAL HISTORY: No history of smoking or alcohol abuse. Lives in a residential facility. FAMILY HISTORY: Unobtainable. REVIEW OF SYSTEMS: Respiratory: Wheezing noted on admission. Mild tachypnea. Cardiac: A history of congenital heart disease. Gastrointestinal: No obvious abdominal pain, vomiting, or diarrhea. Genitourinary: Incontinent of urine. PHYSICAL EXAMINATION: Vital Signs: The temperature was 98.8, pulse 95, blood pressure 122/60, pulse 108, respirations 22, O2 saturation 94% on room air. General: Patient contracted, difficult to examine. Lungs: No wheezing. Bilateral rhonchi. Heart: S1, S2. Regular rhythm. Extremities: No edema. LABORATORY DATA: The white count on admission 23.4, hemoglobin 14.3. BUN 16, creatinine 1.0. Previous nares screening negative for MRSA. Two sets of blood cultures pending. Chest x-ray report and x-ray reviewed, shows moderate cardiomegaly with venous congestion, enlarged right hilum, focal opacity, right mid-lung consistent with infiltrate. ASSESSMENT: Recurrent pneumonia. Patient recently hospitalized, treated with cefuroxime on discharge, ceftriaxone. Would broaden the coverage with Zosyn based on recent hospitalization. Blood cultures drawn. CARA AIKEN M.D. [id number]
[2018-03-03] MEDS: SODIUM CHLORIDE NASAL SPRAY 44 ML BOTTLE NS SCH ×2 (11:13→23:57)
[2018-03-03] MEDS: LORATADINE 10 MG TABLET PO SCH (11:13)
--- NOTE | 2018-03-03 12:09 | CON.PULM ---
Consult Consult Specialty:: PULM/CCM Referred by:: ASH Reason for Consultation:: PNA - History of Present Illness Chief Complaint: Wheezing History of Present Illness: 47 M, severe mental retardation, Down's syndrome, pericardial effusion, systolic dysfunction, congenital heart anomaly, hypothyroidism, lymphocytic thyroiditis, MRSA infection, cataracts, decreased hearing b/l, and congenital orthopedic deformities. Recent admission to [facility] for CAP and discharged on 02/10/18. Now readmitted via the ER due to wheezing noted at his day program. CXR: New mid right lung field opacity. The right hilar opacity/fullness has been noted on CXRs since 2015, with no gross change. 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: Other (severe mental retardation) Cardio/Vascular: Yes: Other (congenital heart anomoly) Pulmonary: Yes: Pneumonia Infectious Disease: Yes: MRSA Musculoskeletal: Yes: Other (multiple congenital deformities.) Endocrine: Yes: Hypothyroidism Additional Medical History: down syndrome, congenital hand deformity, cataracts - Alcohol/Substance Use Hx Alcohol Use: No - Smoking History Smoking history: Never smoked Aproximately how many cigarettes per day: 0 - Social History Usual Living Arrangement: [facility] ADL: Support Services History of Recent Travel: No Home Medications - Allergies Allergies/Adverse Reactions: Allergies Allergy/AdvReac Type Severity Reaction Status Date / Time azithromycin [From Zithromax] Allergy Verified 03/02/18 13:24 - Home Medications Home Medications: Ambulatory Orders Loratadine [Claritin] 10 mg PO DAILY 01/17/12 Multivitamin [Animal Shapes Vitamins] 1 tab PO DAILY 01/17/12 [place]-3 Fatty Acids/Fish Oil [Fish Oil 1,000 mg Softgel] 1 each PO DAILY Levothyroxine [Synthroid -] 100 mcg PO DAILY 10/06/14 Sodium Chloride [Saline Nasal [place]] 30 ml NS BID 10/06/14 [place]obi/Polymyx B Sulf/Dexameth [Maxitrol -] 1 applic OU HS #1 tube 02/21/15 [place]obi/Polymyx B Sulf/Dexameth [Maxitrol Eye Drops -] 2 drop OU Q6HPO drops Albuterol Sulfate Inhaler - [Ventolin HFA Inhaler -] 02/06/18 Bisacodyl [Dulcolax] 10 mg RC PRN 02/06/18 Diazepam 2 mg PO PRN 02/06/18 Phenyleph/Mineral Oil/Petrolat [Preparation H Ointment] 4 drop AU DAILY Ranitidine HCl 75 mg PO DAILY 02/06/18 Sennosides [Senna] 8.6 mg PO DAILY 02/06/18 Cefuroxime Axetil Suspension [Ceftin Oral Suspension -] 500 mg PO BID 2 Days # 200 ml 02/10/18 Review of Systems Unable to obtain ROS, reason: not able to provide Physical Exam Vital Sings: Vital Signs Temperature 98.8 F 03/02/18 23:00 Pulse Rate 95 H 03/02/18 23:00 Respiratory Rate 22 03/02/18 23:00 Blood Pressure 122/60 03/02/18 23:00 O2 Sat by Pulse Oximetry (%) 94 L 03/02/18 23:00 Constitutional: Yes: No Distress, Thin Eyes: Yes: Conjunctiva Clear, EOM Intact HENT: Yes: Atraumatic Neck: Yes: Supple, Trachea Midline Cardiovascular: Yes: Regular Rate and Rhythm Respiratory: Yes: Cough, Diminished, On Nasal O2, Rhonchi. No: Accessory Muscle Use, Rales, Stridor, Tachypnea, Wheezes ...Clubbing: No Gastrointestinal: Yes: Normal Bowel Sounds, Soft Extremities: Yes: WNL Edema: No Peripheral Pulses WNL: Yes Neurological: Yes: Alert Labs: CBC, BMP 03/03/18 06:00 03/03/18 06:45 Imaging - Results Chest X-ray: Report Reviewed, Image Reviewed Problem List - Problems (1) Hilar mass Code(s): R91.8 - OTHER NONSPECIFIC ABNORMAL FINDING OF LUNG FIELD (2) Pneumonia Code(s): J18.9 - PNEUMONIA, UNSPECIFIED ORGANISM (3) Down's syndrome Code(s): Q90.9 - DOWN SYNDROME, UNSPECIFIED (4) Mental retardation Code(s): F79 - UNSPECIFIED INTELLECTUAL DISABILITIES Assessment/Plan Continue Zosyn O2 as needed Aspiration precautions: May benefit from a swallow evaluation Follow blood cultures Urine antigen if able to be obtained VTE prophylaxis Daily medrol Will follow Thank you. Dr Orellana
--- NOTE | 2018-03-03 12:14 | PN ---
Physical Exam: SUBJECTIVE: Patient seen and examined at the bedside. Aide at the bedside. history provided by aide. OBJECTIVE: Vital Signs Period Temp Pulse Resp BP Sys/Jackson Pulse Ox Last 24 Hr 98.3 F-98.9 F 95-130 20-22 122-138/60-77 90-96 GENERAL: The patient is awake, alert, in no acute distress, hx of severe MR HEAD: Normal with no signs of trauma. EYES: PERRL, extraocular movements intact, sclera anicteric, conjunctiva clear. No ptosis. ENT: moist mucous membranes. NECK: Trachea midline, full range of motion, supple. LUNGS: Breath sounds equal, clear to auscultation bilaterally, no accessory muscle use. HEART: Regular rate and rhythm, S1, S2 without murmur, rub or gallop. ABDOMEN: Soft, nontender, nondistended, normoactive bowel sounds EXTREMITIES: no edema. NEUROLOGICAL: Normal speech, gait not observed. PSYCH: Normal mood, normal affect. SKIN: Warm, dry, normal turgor, no rashes or lesions noted Laboratory Results - last 24 hr 03/02/18 03/02/18 03/02/18 15:15 15:15 18:50 WBC 23.4 H D RBC 4.05 Hgb 14.3 Hct 41.7 MCV 103.0 H MCH 35.3 H MCHC 34.3 RDW 13.3 Plt Count 250 D MPV 8.5 Absolute Neuts (auto) 21.3 Total Counted 100 Neutrophils % No Result Required. Neutrophils % (Manual) 76.0 Band Neutrophils % 15.0 Lymphocytes % No Result Required. Lymphocytes % (Manual) 2.0 L Monocytes % Monocytes % (Manual) 7 Eosinophils % Basophils % Nucleated RBC % 0 Differential Comment Man diff performed Platelet Estimate Adequate Platelet Comment Polychromasia 1+ Macrocytosis 1+ Sodium 139 Potassium 4.2 Chloride 102 Carbon Dioxide 27 Anion Gap 10 BUN 16 Creatinine 1.0 Creat Clearance w eGFR > 60 Random Glucose 100 D Lactic Acid 1.7 Calcium 8.9 Phosphorus Magnesium Total Bilirubin 0.5 AST 23 D ALT 25 Alkaline Phosphatase 106 Total Protein 7.6 Albumin 3.1 L 03/03/18 03/03/18 06:00 06:45 WBC 13.8 H D RBC 3.84 L Hgb 13.6 Hct 39.7 MCV 103.2 H MCH 35.3 H MCHC 34.2 RDW 13.1 Plt Count 209 MPV 8.6 Absolute Neuts (auto) 11.9 Total Counted Neutrophils % 86.6 H D Neutrophils % (Manual) Band Neutrophils % Lymphocytes % 6.2 L D Lymphocytes % (Manual) Monocytes % 6.7 Monocytes % (Manual) Eosinophils % 0.1 D Basophils % 0.4 Nucleated RBC % 0 Differential Comment Platelet Estimate Platelet Comment Polychromasia Macrocytosis Sodium 140 Potassium 4.0 Chloride 105 Carbon Dioxide 23 Anion Gap 12 BUN 18 Creatinine 1.4 H D Creat Clearance w eGFR 54.09 Random Glucose 99 Lactic Acid Calcium 8.5 Phosphorus 3.6 D Magnesium 2.0 Total Bilirubin 0.9 D AST 22 ALT 21 Alkaline Phosphatase 91 Total Protein 6.9 Albumin 2.7 L Active Medications Generic Name Dose Route Start Last Admin Trade Name Freq PRN Reason Stop Dose Admin Acetaminophen 650 mg 03/02/18 18:13 Tylenol - PO Q4H PRN PAIN LEVEL 1 - 3 Albuterol Sulfate 1 amp 03/02/18 18:10 Ventolin 0.083% Nebulizer Soln - NEB Q4H PRN SHORT OF BREATH/WHEEZING Heparin Sodium (Porcine) 5,000 unit 03/03/18 06:00 03/03/18 07:00 Heparin - SQ Not Given TID TANISHA Piperacillin Sod/Tazobactam 50 mls @ 100 mls/hr 03/03/18 02:00 Sod 3.375 gm/ Dextrose IVPB Q8H-IV TANISHA Protocol Sodium Chloride 1,000 mls @ 50 mls/hr 03/02/18 18:15 03/02/18 23:44 Normal Saline - IV 03/03/18 18:14 50 mls/hr ASDIR TANISHA Administration Piperacillin Sod/Tazobactam 50 mls @ 100 mls/hr 03/03/18 02:00 03/03/18 01:02 Sod 3.375 gm/ Dextrose IVPB 03/03/18 02:29 100 mls/hr ONCE ONE Administration Levothyroxine Sodium 100 mcg 03/03/18 07:00 03/03/18 06:07 Synthroid - PO 100 mcg 0700 TANISHA Administration Loratadine 10 mg 03/03/18 10:00 03/03/18 11:13 Claritin - PO 10 mg DAILY TANISHA Administration Neomycin/Polymyxin/Dexamethasone 2 drop 03/03/18 00:00 03/03/18 06:07 Maxitrol Eye Drops - OU 2 drop Q6HPO TANISHA Administration Non-Formulary Medication 4 drop 03/03/18 10:00 Phenyleph/Mineral Oil/Petrolat AU DAILY TANISHA Sodium Chloride 1 spray 03/02/18 22:00 03/03/18 11:13 [place] Nasal [place] - NS 1 spray BID TANISHA Administration ASSESSMENT/PLAN: Patient is a 47 year old male with severe MR from [place]. He presented to the ED on 03/02/2018 with shortness of breath and found to have pneumonia. His other past medical history includes down's syndrome, pericardial effusion, systolic dysfunction, congenital heart anomaly, hypothyroidism, lymphocytic thyroiditis, and congenital orthopedic deformities. Pulm: Pneumonia, acute Leukocytosis, wbc trending down 23>13. Pneumonia likely secondary to aspiration pneumonia, speech/swallow consult placed. Duonebs prn, tolerating room air. Zosyn for pneumonia. Chest xray with interval focal opacity in the right mid lung measuring 4cm suggestive of airspace disease/pneumonia Monitor respiratory status. Endocrine Hypothyroid, chronic On Synthroid FEN [place] thickened fluids Monitor electrolytes Aspiration precautions Prophy Heparin Disposition: full code Visit type - Emergency Visit Emergency Visit: Yes ED Registration Date: 03/02/18 Care time: The patient presented to the Emergency Department on the above date and was hospitalized for further evaluation of their emergent condition. - New Patient This patient is new to me today: Yes Date on this admission: 03/03/18 - Critical Care Critical Care patient: No - Discharge Referral Referred to [facility] No
--- NOTE | 2018-03-03 14:27 | CONSULT ---
Admitting History and Physical - Primary Care Physician PCP: Juan M Ribeiro - Admission History of Present Illness: 47 M, severe mental retardation, Down's syndrome, pericardial effusion, systolic dysfunction, congenital heart anomaly, hypothyroidism, lymphocytic thyroiditis, MRSA infection, cataracts, decreased hearing b/l, and congenital orthopedic deformities. Recent admission to [facility] for CAP and discharged on 02/10/18. Now readmitted via the ER due to wheezing noted at his day program. CXR: New mid right lung field opacity. The right hilar opacity/fullness has been noted on CXRs since 2015, with no gross change. Pt on a pureed diet/thin liquids. This is my first consult with this pt. 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: Other (severe mental retardation) Cardiovascular: Yes: Other (congenital heart anomoly) Pulmonary: Yes: Pneumonia Infectious Disease: Yes: MRSA Musculoskeletal: Yes: Other (multiple congenital deformities.) Endocrine: Yes: Hypothyroidism - Smoking History Smoking history: Never smoked Aproximately how many cigarettes per day: 0 - Alcohol/Substance Use Hx Alcohol Use: No - Social History ADL: Support Services History of Recent Travel: No History - Admission Reason For Visit: PNEUMONIA - Diagnostics X-ray: Report Reviewed - General Mental Status: Awake and Alert, Able to Follow Commands (simple) Ability to Follow Directions: Fair (follows go to bathroom, change your shirt, time for dinner at custodial) Head/Neck Control: Fair - Hearing Hearing: Functional Hearing Aide: No With Patient: No Speech Evaluation - Communication Primary Language: [place] Oral Expression Ability: Yes: Non-Verbal (occaasionally vocal.Shakes head no, pushes aWAY, pulls you to him) - Speech Production Able to Make Needs Known: Yes: Severely Impaired - Speech Characteristics Voice Phonatory-based Quality: Yes: Normal - Swallow Evaluation/Bedside Assessment Current Nutritional Intake: Dysphagia Pureed, Thin Liquids Oral Secretions: Yes: WFL Facial Symmetry at Rest: Symmetrical Laryngeal Movement: Labored,delay initiation Rate of Intake: WFL Oral Prep Time: WFL Timing of Swallow: Delayed Coughing/Throat Clear: No Change in Voice: No Recommendations - Speech Evaluation, Impression/Plan Impression: Limited cooperation but feeds himself at custodial puree/thin liquid. Rare cough according to jack winder. Reportedly dislikes drinking. risk of aspiration. Refused trial of thick liquid. Only accepted 2 sips of water. - Disposition Discharge to: Adult Residence - Dysphagia Impressions/Plan Dysphagia Impressions: Mild Impairment, Ongoing Evaluation - Recommendations Diet Consistency: Dysphagia Pureed, Other (avoid po intake within 1-2 hours of reclining.) Medication Administration: Crushed with applesauce Liquids: Thin Liquids (single sips. avoid continuous drinking.), [place] Thick ( trial to determine if he will accept more readily.) Supplement: Magic Cup, Ensure Pudding
[2018-03-03] MEDS ORDERED: PIPERACILLIN/TAZOBACTAM 2.25 GM VIAL IVPB ONE ×3 (14:42→23:37)
[2018-03-03] MEDS ORDERED: PT OWN MED DRAWER 7, Y5N ONE ×3 (14:57→23:38)
[2018-03-03] MEDS: PIPERACILLIN/TAZOB 2.25 GM 2.25 GM in DEXTROSE 5%-WATER - 50 ML IVPB SCH ×2 (15:49→22:00)
[2018-03-03] MEDS: methylPREDNISolone NA SUCC 40 MG/1 ML VIAL IVPUSH SCH (15:50)
[2018-03-04] MEDS: NEO/POLYMYX B SULF/DEXAMETH OPHTHALMIC 5ML BOTTLE OU SCH ×3 (01:00→12:00)
[2018-03-04] MEDS ORDERED: PIPERACILLIN/TAZOBACTAM 2.25 GM VIAL IVPB ONE ×4 (01:43→20:44)
[2018-03-04] MEDS ORDERED: DEXTROSE 5%-WATER - 50 ML IVPB ONE ×4 (01:43→20:44)
[2018-03-04] MEDS: PIPERACILLIN/TAZOB 2.25 GM 2.25 GM in DEXTROSE 5%-WATER - 50 ML IVPB SCH ×4 (02:16→21:13)
[2018-03-04] MEDS: HEPARIN NA (PORCINE) 5,000 UNITS/ML 1ML VIAL SQ SCH ×2 (06:49→14:00)
[2018-03-04] MEDS: LEVOTHYROXINE NA 100 MCG TABLET (FP) PO SCH (06:50)
--- NOTE | 2018-03-04 08:47 | PN ---
Progress Note, Physician Chief Complaint: ID Jaimie day 2 NO IV access - Current Medication List Current Medications: Active Medications Acetaminophen (Tylenol -) 650 mg PO Q4H PRN PRN Reason: PAIN LEVEL 1 - 3 Albuterol Sulfate (Ventolin 0.083% Nebulizer Soln -) 1 amp NEB Q4H PRN PRN Reason: SHORT OF BREATH/WHEEZING Heparin Sodium (Porcine) (Heparin -) 5,000 unit SQ TID [facility] Last Admin: 03/04/18 06:49 Dose: Not Given Piperacillin Sod/Tazobactam (Sod 3.375 gm/ Dextrose) 50 mls @ 100 mls/hr IVPB Q8H-IV TANISHA; Protocol Sodium Chloride (Normal Saline -) 1,000 mls @ 50 mls/hr IV ASDIR TANISHA Stop: 03/03/18 18:14 Last Admin: 03/02/18 23:44 Dose: 50 mls/hr Piperacillin Sod/Tazobactam (Sod 3.375 gm/ Dextrose) 50 mls @ 100 mls/hr IVPB ONCE ONE Stop: 03/03/18 02:29 Last Admin: 03/03/18 01:02 Dose: 100 mls/hr Levothyroxine Sodium (Synthroid -) 100 mcg PO 0700 [facility] Last Admin: 03/04/18 06:50 Dose: 100 mcg Loratadine (Claritin -) 10 mg PO DAILY [facility] Last Admin: 03/03/18 11:13 Dose: 10 mg Neomycin/Polymyxin/Dexamethasone (Maxitrol Eye Drops -) 2 drop OU Q6HPO [facility] Last Admin: 03/04/18 06:51 Dose: 2 drop Non-Formulary Medication (Phenyleph/Mineral Oil/Petrolat) 4 drop AU DAILY [facility] Sodium Chloride ([place] Nasal [place] -) 1 spray NS BID [facility] Last Admin: 03/03/18 23:57 Dose: 1 spray - Objective Vital Signs: Vital Signs Temperature 97.4 F L 03/04/18 06:00 Pulse Rate 64 03/04/18 06:00 Respiratory Rate 18 03/04/18 06:00 Blood Pressure 110/48 03/04/18 06:00 O2 Sat by Pulse Oximetry (%) 94 L 03/03/18 21:00 Constitutional: Yes: No Distress Cardiovascular: Yes: Regular Rate and Rhythm, S1, S2 Respiratory: Yes: WNL, Regular, CTA Bilaterally, Wheezes Gastrointestinal: Yes: Soft. No: Tenderness Edema: Yes Labs: CBC, BMP 03/03/18 06:00 03/03/18 06:45 Assessment/Plan Microbiology 03/02/18 19:00 Blood - Peripheral Venous Blood Culture - Preliminary NO GROWTH OBTAINED AFTER 24 HOURS, INCUBATION TO CONTINUE FOR 4 DAYS. 03/02/18 19:00 Blood - Peripheral Venous Blood Culture - Preliminary NO GROWTH OBTAINED AFTER 24 HOURS, INCUBATION TO CONTINUE FOR 4 DAYS. Laboratory Tests 03/03/18 03/03/18 06:00 06:45 WBC 13.8 H D Hgb 13.6 Plt Count 209 BUN 18 Creatinine 1.4 H D Assessment Working diagnosis PNA with exacerbation of Asthma Some wheezing still noted No IV access Plan Consider oral antibiotic Augmentin suspension Miles BUNN
--- NOTE | 2018-03-04 09:51 | PN ---
Physical Exam: SUBJECTIVE: Patient seen and examined. No verbal, awake in bed, appears calm. Playing with dolls OBJECTIVE: Vital Signs Period Temp Pulse Resp BP Sys/Jackson Pulse Ox Last 24 Hr 97.3 F-98.0 F 64-99 18-20 110-146/48-101 94 PE Neuro: awake, alert, no verbal Pulm: diminished mild wheeze CV: s1 s2 rrr 3/6 murmur Abd: s nt nd + bs Ext: left hand amputation, r hand edema, no le edema Laboratory Results - last 24 hr 03/03/18 03/03/18 06:00 06:45 WBC 13.8 H D RBC 3.84 L Hgb 13.6 Hct 39.7 MCV 103.2 H MCH 35.3 H MCHC 34.2 RDW 13.1 Plt Count 209 MPV 8.6 Absolute Neuts (auto) 11.9 Neutrophils % 86.6 H D Lymphocytes % 6.2 L D Monocytes % 6.7 Eosinophils % 0.1 D Basophils % 0.4 Nucleated RBC % 0 Sodium 140 Potassium 4.0 Chloride 105 Carbon Dioxide 23 Anion Gap 12 BUN 18 Creatinine 1.4 H D Creat Clearance w eGFR 54.09 Random Glucose 99 Calcium 8.5 Phosphorus 3.6 D Magnesium 2.0 Total Bilirubin 0.9 D AST 22 ALT 21 Alkaline Phosphatase 91 Total Protein 6.9 Albumin 2.7 L Active Medications Generic Name Dose Route Start Last Admin Trade Name Freq PRN Reason Stop Dose Admin Acetaminophen 650 mg 03/02/18 18:13 Tylenol - PO Q4H PRN PAIN LEVEL 1 - 3 Albuterol Sulfate 1 amp 03/02/18 18:10 Ventolin 0.083% Nebulizer Soln - NEB Q4H PRN SHORT OF BREATH/WHEEZING Heparin Sodium (Porcine) 5,000 unit 03/03/18 06:00 03/04/18 06:49 Heparin - SQ Not Given TID TANISHA Piperacillin Sod/Tazobactam 50 mls @ 100 mls/hr 03/03/18 02:00 Sod 3.375 gm/ Dextrose IVPB Q8H-IV TANISHA Protocol Sodium Chloride 1,000 mls @ 50 mls/hr 03/02/18 18:15 03/02/18 23:44 Normal Saline - IV 03/03/18 18:14 50 mls/hr ASDIR TANISHA Administration Piperacillin Sod/Tazobactam 50 mls @ 100 mls/hr 03/03/18 02:00 03/03/18 01:02 Sod 3.375 gm/ Dextrose IVPB 03/03/18 02:29 100 mls/hr ONCE ONE Administration Levothyroxine Sodium 100 mcg 03/03/18 07:00 03/04/18 06:50 Synthroid - PO 100 mcg 0700 TANISHA Administration Loratadine 10 mg 03/03/18 10:00 03/03/18 11:13 Claritin - PO 10 mg DAILY TANISHA Administration Neomycin/Polymyxin/Dexamethasone 2 drop 03/03/18 00:00 03/04/18 06:51 Maxitrol Eye Drops - OU 2 drop Q6HPO TANISHA Administration Non-Formulary Medication 4 drop 03/03/18 10:00 Phenyleph/Mineral Oil/Petrolat AU DAILY TANISHA Sodium Chloride 1 spray 03/02/18 22:00 03/03/18 23:57 [place] Nasal [place] - NS 1 spray BID TANISHA Administration Microbiology 03/02/18 19:00 Blood Culture - Preliminary Blood - Peripheral Venous NO GROWTH OBTAINED AFTER 24 HOURS, INCUBATION TO CONTINUE FOR 4 DAYS. 03/02/18 19:00 Blood Culture - Preliminary Blood - Peripheral Venous NO GROWTH OBTAINED AFTER 24 HOURS, INCUBATION TO CONTINUE FOR 4 DAYS. Assessment: 47 year old male with severe MR presented from [facility] with wheezing Plan: 1. Sepsis Pneumonia - WBC improving - Pt pulling IV, if not placement change zosyn to augmentin - Continue short course steroids - Albuterol nebs prn 2. Hypothyroid - Cont synthroid 3. AGATHA - Possible due to decreased PO intake/meds - Encourage PO intake, with IV will start gentle fluids - Monitor bmp 4. DVT ppx - Heparin sq Problem List - Problems (1) Pneumonia Code(s): J18.9 - PNEUMONIA, UNSPECIFIED ORGANISM (2) Down's syndrome Code(s): Q90.9 - DOWN SYNDROME, UNSPECIFIED (3) Mental retardation Code(s): F79 - UNSPECIFIED INTELLECTUAL DISABILITIES Visit type - Emergency Visit Emergency Visit: Yes ED Registration Date: 03/02/18 Care time: The patient presented to the Emergency Department on the above date and was hospitalized for further evaluation of their emergent condition. - New Patient This patient is new to me today: No - Critical Care Critical Care patient: No
[2018-03-04] MEDS ORDERED: SODIUM CHLORIDE 1,000 ML IV SCH (10:00)
[2018-03-04] MEDS: SODIUM CHLORIDE NASAL SPRAY 44 ML BOTTLE NS SCH ×2 (10:48→21:13)
[2018-03-04] MEDS: methylPREDNISolone NA SUCC 40 MG/1 ML VIAL IVPUSH SCH (10:48)
[2018-03-04] MEDS: LORATADINE 10 MG TABLET PO SCH (10:48)
--- NOTE | 2018-03-04 12:31 | PN ---
Progress Note (short form) - Note Progress Note: PULMONARY CHART REVIEWED PATIENT EXAMINED NO CHANGE IN EXAM LABS NOTED CULTURES NEGATIVE THUS FAR [place]ON [place] APPRECIATED (1) Hilar mass Code(s): R91.8 - OTHER NONSPECIFIC ABNORMAL FINDING OF LUNG FIELD (2) Pneumonia Code(s): J18.9 - PNEUMONIA, UNSPECIFIED ORGANISM (3) Down's syndrome Code(s): Q90.9 - DOWN SYNDROME, UNSPECIFIED (4) Mental retardation Code(s): F79 - UNSPECIFIED INTELLECTUAL DISABILITIES Assessment/Plan Continue Zosyn O2 as needed follow diet recommendations VTE prophylaxis medrol to taper Will follow Julian BUI MD
[2018-03-04 13:11] LABS: BASO % 0.3 % (0-2.0); HEMATOCRIT 38.5 % (35.4-49); MCH 35.3 pg (25.7-33.7); MCHC 33.8 g/dl (32.0-35.9); MEAN CELL VOLUME 104.5 fl (80-96); MEAN PLT VOLUME 8.4 fl (7.5-11.1); MONO % 3.3 % (3.8-10.2); NEUT % 93.4 % (42.8-82.8); PLATELET COUNT 227 K/MM3 (134-434); RBC 3.69 M/mm3 (4.00-5.60); RDW 13.1 % (11.9-15.9); WHITE BLOOD COUNT 20.4 K/mm3 (4.0-10.0)
[2018-03-04 13:40] LABS: ALBUMIN 2.7 g/dl (3.4-5.0); ANION GAP 8 (8-16); BILIRUBIN,TOTAL 0.5 mg/dL (0.2-1.0); BLOOD UREA NITROGEN 34 mg/dL (7-18); CALCIUM 8.9 mg/dL (8.5-10.1); CHLORIDE 111 mmol/L (98-107); CO2 25 mmol/L (21-32); GLUCOSE,RANDOM 153 mg/dL (74-106); MAGNESIUM 2.4 mg/dL (1.8-2.4); POTASSIUM 4.1 mmol/L (3.5-5.1); SGOT/AST 17 U/L (15-37); SGPT/ALT 22 U/L (12-78); SODIUM 144 mmol/L (136-145); TOT PROT 7.2 g/dl (6.4-8.2)
[2018-03-04 13:41] LABS: ALK PHOS 83 U/L (45-117)
[2018-03-04 14:24] LABS: PLATELET ESTIMATE NORMAL
--- NOTE | 2018-03-04 15:18 | PN ---
Progress Note, STUDENT DEAN - Note Progress Note: Selected Entries 03/04/18 03/04/18 03/04/18 02:12 06:00 10:00 Breakfast Diet Tolerated Lunch Temperature 97.3 F L 97.4 F L 98.6 F 03/04/18 03/04/18 11:44 15:03 Breakfast 75% Diet Tolerated Well Well Lunch 75% Temperature Laboratory Tests 03/02/18 03/03/18 03/04/18 15:15 06:00 12:45 WBC 23.4 H D 13.8 H D 20.4 H D Adamantly refusing trials of thin liquids. Pt has IV.
[2018-03-04] MEDS: SODIUM CHLORIDE 1,000 ML IV SCH (16:54)
[2018-03-04] MEDS ORDERED: PT OWN MED DRAWER 7, Y5N ONE ×2 (16:59→20:51)
[2018-03-05] MEDS ORDERED: PIPERACILLIN/TAZOBACTAM 2.25 GM VIAL IVPB ONE ×3 (01:02→17:03)
[2018-03-05] MEDS ORDERED: DEXTROSE 5%-WATER - 50 ML IVPB ONE ×3 (01:02→17:03)
[2018-03-05] MEDS: NEO/POLYMYX B SULF/DEXAMETH OPHTHALMIC 5ML BOTTLE OU SCH ×6 (02:08→23:43)
[2018-03-05] MEDS: HEPARIN NA (PORCINE) 5,000 UNITS/ML 1ML VIAL SQ SCH ×4 (02:09→22:01)
[2018-03-05] MEDS: PIPERACILLIN/TAZOB 2.25 GM 2.25 GM in DEXTROSE 5%-WATER - 50 ML IVPB SCH ×3 (02:29→17:47)
[2018-03-05] MEDS: LEVOTHYROXINE NA 100 MCG TABLET (FP) PO SCH (06:27)
[2018-03-05] MEDS ORDERED: PT OWN MED DRAWER 7, Y5N ONE (06:46)
[2018-03-05 08:09] LABS: BASO % 0.3 % (0-2.0); HEMOGLOBIN 12.6 GM/dL (11.7-16.9); LYMPH % 5.2 % (8-40); MCH 35.3 pg (25.7-33.7); MEAN CELL VOLUME 103.9 fl (80-96); MEAN PLT VOLUME 8.5 fl (7.5-11.1); MONO % 3.4 % (3.8-10.2); NEUT % 91.1 % (42.8-82.8); PLATELET COUNT 216 K/MM3 (134-434); RBC 3.56 M/mm3 (4.00-5.60); RDW 13.3 % (11.9-15.9); WHITE BLOOD COUNT 22.6 K/mm3 (4.0-10.0)
[2018-03-05 08:42] LABS: ANION GAP 9 (8-16); BLOOD UREA NITROGEN 41 mg/dL (7-18); CALCIUM 8.9 mg/dL (8.5-10.1); CHLORIDE 116 mmol/L (98-107); CO2 24 mmol/L (21-32); CREATININE 2.4 mg/dL (0.7-1.3); GLUCOSE,RANDOM 104 mg/dL (74-106); POTASSIUM 4.2 mmol/L (3.5-5.1); SODIUM 149 mmol/L (136-145)
[2018-03-05] MEDS: SODIUM CHLORIDE 1,000 ML IV SCH (08:46)
--- NOTE | 2018-03-05 09:36 | PN ---
Progress Note (short form) - Note Progress Note: PULMONARY CHART REVIEWED PATIENT EXAMINED NO CHANGE IN EXAM LABS NOTED CULTURES NEGATIVE THUS FAR IRON [place] APPRECIATED CREATININE IS INCREASING (1) Hilar mass Code(s): R91.8 - OTHER NONSPECIFIC ABNORMAL FINDING OF LUNG FIELD (2) Pneumonia Code(s): J18.9 - PNEUMONIA, UNSPECIFIED ORGANISM (3) Down's syndrome Code(s): Q90.9 - DOWN SYNDROME, UNSPECIFIED (4) Mental retardation Code(s): F79 - UNSPECIFIED INTELLECTUAL DISABILITIES Assessment/Plan Renal dose antibiotics Consider Renal consult O2 as needed follow diet recommendations VTE prophylaxis Will follow Julian BUI MD
[2018-03-05 10:21] LABS: ANISOCYTOSIS 1+; MACROCYTOSIS 1+; PLATELET ESTIMATE NORMAL
[2018-03-05] MEDS: methylPREDNISolone NA SUCC 40 MG/1 ML VIAL IVPUSH SCH (10:51)
[2018-03-05] MEDS: LORATADINE 10 MG TABLET PO SCH (10:51)
[2018-03-05] MEDS: SODIUM CHLORIDE NASAL SPRAY 44 ML BOTTLE NS SCH ×2 (10:52→22:29)
--- NOTE | 2018-03-05 11:51 | PN ---
Progress Note (short form) - Note Progress Note: awake and alert aide reports in no distress at baseline does not look in distress Vital Signs Period Temp Pulse Resp BP Sys/Jackson Pulse Ox Last 24 Hr 97.3 F-98 F 79-117 20-50 111-125/50-74 95-95 cor-rrr lungs clear abd soft,nt ext no edema CBC, BMP 03/05/18 06:30 03/05/18 06:30 Microbiology 03/02/18 19:00 Blood - Peripheral Venous Blood Culture - Preliminary NO GROWTH OBTAINED AFTER 48 HOURS, INCUBATION TO CONTINUE FOR 3 DAYS. 03/02/18 19:00 Blood - Peripheral Venous Blood Culture - Preliminary NO GROWTH OBTAINED AFTER 48 HOURS, INCUBATION TO CONTINUE FOR 3 DAYS. a/p worsening renal function- needs evaluation pneumonia, on steroids- which may explain his leukocytosis continue zosyn adjust for worsening renal function cr cl is 18
--- NOTE | 2018-03-05 12:16 | PN ---
Physical Exam: SUBJECTIVE: Patient seen and examined. Awake in bed. Aid says is less interactive then usual. OBJECTIVE: Vital Signs Period Temp Pulse Resp BP Sys/Jackson Pulse Ox Last 24 Hr 97.3 F-98 F 79-117 20-50 111-125/50-74 95-95 PE Neuro: awake, alert, no verbal Pulm: diminished mild wheeze, rhonchi CV: s1 s2 rrr 3/6 murmur Abd: s nt nd + bs Ext: left hand amputation, r hand edema, no le edema Laboratory Results - last 24 hr 03/04/18 03/04/18 03/05/18 12:45 12:45 06:30 WBC 20.4 H D 22.6 H RBC 3.69 L 3.56 L Hgb 13.0 12.6 Hct 38.5 37.0 MCV 104.5 H 103.9 H MCH 35.3 H 35.3 H MCHC 33.8 34.0 RDW 13.1 13.3 Plt Count 227 216 MPV 8.4 8.5 Absolute Neuts (auto) 19.1 20.6 Total Counted 97 Neutrophils % 93.4 H 91.1 H Neutrophils % (Manual) 95.0 H D 90.7 H Band Neutrophils % 0.0 0.0 Lymphocytes % 3.0 L D 5.2 L D Lymphocytes % (Manual) 3.0 L D 2.0 L D Monocytes % 3.3 L 3.4 L Monocytes % (Manual) 2 L 3 L Eosinophils % 0.0 D 0.0 Eosinophils % (Manual) 0.0 0.0 Basophils % 0.3 0.3 Basophils % (Manual) 0.0 0.0 Myelocytes % (Man) 0 2 D Promyelocytes % (Man) 0 0 Blast Cells % (Manual) 0 0 Nucleated RBC % 0 0 Metamyelocytes 0 0 Platelet Estimate Normal Normal Polychromasia 1+ Anisocytosis 1+ Macrocytosis 1+ Sodium 144 Potassium 4.1 Chloride 111 H Carbon Dioxide 25 Anion Gap 8 BUN 34 H D Creatinine 2.0 H D Creat Clearance w eGFR 35.84 Random Glucose 153 H D Calcium 8.9 Magnesium 2.4 Total Bilirubin 0.5 D AST 17 D ALT 22 Alkaline Phosphatase 83 Total Protein 7.2 Albumin 2.7 L 03/05/18 06:30 WBC RBC Hgb Hct MCV MCH MCHC RDW Plt Count MPV Absolute Neuts (auto) Total Counted Neutrophils % Neutrophils % (Manual) Band Neutrophils % Lymphocytes % Lymphocytes % (Manual) Monocytes % Monocytes % (Manual) Eosinophils % Eosinophils % (Manual) Basophils % Basophils % (Manual) Myelocytes % (Man) Promyelocytes % (Man) Blast Cells % (Manual) Nucleated RBC % Metamyelocytes Platelet Estimate Polychromasia Anisocytosis Macrocytosis Sodium 149 H Potassium 4.2 Chloride 116 H Carbon Dioxide 24 Anion Gap 9 BUN 41 H D Creatinine 2.4 H Creat Clearance w eGFR 29.04 Random Glucose 104 D Calcium 8.9 Magnesium Total Bilirubin AST ALT Alkaline Phosphatase Total Protein Albumin Active Medications Generic Name Dose Route Start Last Admin Trade Name Freq PRN Reason Stop Dose Admin Acetaminophen 650 mg 03/02/18 18:13 Tylenol - PO Q4H PRN PAIN LEVEL 1 - 3 Albuterol Sulfate 1 amp 03/02/18 18:10 Ventolin 0.083% Nebulizer Soln - NEB Q4H PRN SHORT OF BREATH/WHEEZING Heparin Sodium (Porcine) 5,000 unit 03/03/18 06:00 03/05/18 06:31 Heparin - SQ Not Given TID TANISHA Piperacillin Sod/Tazobactam 50 mls @ 100 mls/hr 03/03/18 02:00 Sod 3.375 gm/ Dextrose IVPB Q8H-IV TANISHA Protocol Sodium Chloride 1,000 mls @ 50 mls/hr 03/02/18 18:15 03/02/18 23:44 Normal Saline - IV 03/03/18 18:14 50 mls/hr ASDIR TANISHA Administration Piperacillin Sod/Tazobactam 50 mls @ 100 mls/hr 03/03/18 02:00 03/03/18 01:02 Sod 3.375 gm/ Dextrose IVPB 03/03/18 02:29 100 mls/hr ONCE ONE Administration Levothyroxine Sodium 100 mcg 03/03/18 07:00 03/05/18 06:27 Synthroid - PO 100 mcg 0700 TANISHA Administration Loratadine 10 mg 03/03/18 10:00 03/05/18 10:51 Claritin - PO 10 mg DAILY TANISHA Administration Neomycin/Polymyxin/Dexamethasone 2 drop 03/03/18 00:00 03/05/18 06:28 Maxitrol Eye Drops - OU 2 drop Q6HPO TANISHA Administration Non-Formulary Medication 4 drop 03/03/18 10:00 Phenyleph/Mineral Oil/Petrolat AU DAILY TANISHA Sodium Chloride 1 spray 03/02/18 22:00 03/05/18 10:52 [place] Nasal [place] - NS 1 spray BID TANISHA Administration Assessment: 47 year old male with severe MR presented from [facility] with wheezing Plan: 1. Sepsis Pneumonia - Leukocytosis likely due to steroids - Zosyn adjusted for cr cl - Continue short course steroids 2. Hypothyroid - Cont synthroid 3. AGATHA - Cr rising - Renal/bladder US - UA, urine cr/sodium ordered - Renal consulted - Stop fluids 4. DVT ppx - Heparin sq Problem List - Problems (1) Pneumonia Code(s): J18.9 - PNEUMONIA, UNSPECIFIED ORGANISM (2) Down's syndrome Code(s): Q90.9 - DOWN SYNDROME, UNSPECIFIED (3) Mental retardation Code(s): F79 - UNSPECIFIED INTELLECTUAL DISABILITIES Visit type - Emergency Visit Emergency Visit: Yes ED Registration Date: 03/02/18 Care time: The patient presented to the Emergency Department on the above date and was hospitalized for further evaluation of their emergent condition. - New Patient This patient is new to me today: No - Critical Care Critical Care patient: No
[2018-03-05 16:16] LABS: URINE APPEARANCE CLEAR; URINE BILIRUBIN NEGATIVE (<2.0 mg/dL); URINE COLOR STRAW; URINE GLUCOSE (UA) NEGATIVE (NEGATIVE); URINE KETONE NEGATIVE (NEGATIVE)
[2018-03-05 16:17] LABS: EPI CELLS RARE /HPF (FEW); URINE BACTERIA FEW /hpf (NONE SEEN); URINE LEUK ESTERASE NEGATIVE (NEGATIVE); URINE NITRITE NEGATIVE (NEGATIVE); URINE PROTEIN NEGATIVE (NEGATIVE); URINE UROBILINOGEN NORMAL mg/dL (0.2-1.0)
--- NOTE | 2018-03-05 18:14 | CON.NEP ---
Consult Consult Specialty:: nephrology Referred by:: precious Reason for Consultation:: sosa - History of Present Illness Chief Complaint: rising bun and creatinine History of Present Illness: admitted with pneumonia treated with vancomycin and zosyn developed rising bun and creatinine the personal aide and nurse report he still makes urine serum sodium 149 indicative of free water deficit - Past Medical History [employer]AD[employer] WORKER: Yes: Other (severe mental retardation) Cardio/Vascular: Yes: Other (congenital heart anomoly) Pulmonary: Yes: Pneumonia Infectious Disease: Yes: MRSA Musculoskeletal: Yes: Other (multiple congenital deformities.) Endocrine: Yes: Hypothyroidism Additional Medical History: down syndrome, congenital hand deformity, cataracts - Alcohol/Substance Use Hx Alcohol Use: No - Smoking History Smoking history: Never smoked Aproximately how many cigarettes per day: 0 - Social History Usual Living Arrangement: Retirement ADL: Support Services History of Recent Travel: No Home Medications - Allergies Allergies/Adverse Reactions: Allergies Allergy/AdvReac Type Severity Reaction Status Date / Time azithromycin [From Zithromax] Allergy Verified 03/02/18 13:24 - Home Medications Home Medications: Ambulatory Orders Loratadine [Claritin] 10 mg PO DAILY 01/17/12 Multivitamin [Animal Shapes Vitamins] 1 tab PO DAILY 01/17/12 [place]-3 Fatty Acids/Fish Oil [Fish Oil 1,000 mg Softgel] 1 each PO DAILY Levothyroxine [Synthroid -] 100 mcg PO DAILY 10/06/14 Sodium Chloride [Saline Nasal [place]] 30 ml NS BID 10/06/14 [place]/Polymyx B Sulf/Dexameth [Maxitrol -] 1 applic OU HS #1 tube 02/21/15 [place]/Polymyx B Sulf/Dexameth [Maxitrol Eye Drops -] 2 drop OU Q6HPO drops Bisacodyl [Dulcolax] 10 mg RC PRN 02/06/18 Diazepam 2 mg PO PRN 02/06/18 Phenyleph/Mineral Oil/Petrolat [Preparation H Ointment] 4 drop AU DAILY Ranitidine HCl 75 mg PO DAILY 02/06/18 Sennosides [Senna] 8.6 mg PO DAILY 02/06/18 Cefuroxime Axetil Suspension [Ceftin Oral Suspension -] 500 mg PO BID 2 Days # 200 ml 02/10/18 Nephrology Consult - Height Height: 4 ft 3 in - Weight Weight: 77 lb - BMI Body Mass Index (BMI): 20.8 - Lab Results CBC,BMP: CBC, BMP 03/05/18 06:30 03/05/18 06:30 Anion Gap: Anion Gap Anion Gap 9 (8-16) 03/05/18 06:30 - Physical Examination Vital Signs: Vital Signs Temperature 97.2 F L 03/05/18 14:00 Pulse Rate 79 03/05/18 01:00 Respiratory Rate 20 03/05/18 09:00 Blood Pressure 125/68 03/05/18 01:00 O2 Sat by Pulse Oximetry (%) 95 03/05/18 09:00 Constitutional: Yes: Well Nourished, No Distress, Calm Eyes: Yes: WNL, Conjunctiva Clear, EOM Intact HENT: Yes: WNL, Atraumatic, Normocephalic Neck: Yes: WNL, Supple, Trachea Midline Cardiovascular: Yes: WNL, Regular Rate and Rhythm Respiratory: Yes: WNL, Regular, CTA Bilaterally Gastrointestinal: Yes: WNL, Normal Bowel Sounds Extremities: Yes: Deformity Edema: No Integumentary: Yes: WNL Psychiatric: Yes: Other Assessment/Plan hospital acquired sosa clinically dry probably prerenal hypernatremia admitted with pna mentally retarded unable to complain but clinically stable, sitting upright in bed and interacting with the examiner PMHX MR Downs syndrome pericardial effusion, systolic dysfunction congenital heart anomaly hypothyroidism lymphocytic thyroiditis h/o mrsa infection cataracts hearing impaired congenital deformity of the hand, shoulder, upper extremities Plan- IVF encourage oral hydration monitor urine output by recording the number of wet diapers
[2018-03-06] MEDS ORDERED: PIPERACILLIN/TAZOBACTAM 2.25 GM VIAL IVPB ONE ×3 (02:57→16:38)
[2018-03-06] MEDS ORDERED: DEXTROSE 5%-WATER - 50 ML IVPB ONE ×3 (02:57→16:39)
[2018-03-06] MEDS: PIPERACILLIN/TAZOB 2.25 GM 2.25 GM in DEXTROSE 5%-WATER - 50 ML IVPB SCH ×3 (02:59→17:15)
[2018-03-06] MEDS: HEPARIN NA (PORCINE) 5,000 UNITS/ML 1ML VIAL SQ SCH ×3 (06:43→21:19)
[2018-03-06] MEDS: NEO/POLYMYX B SULF/DEXAMETH OPHTHALMIC 5ML BOTTLE OU SCH ×3 (06:43→17:15)
[2018-03-06] MEDS: LEVOTHYROXINE NA 100 MCG TABLET (FP) PO SCH (06:44)
[2018-03-06 07:51] LABS: HEMATOCRIT 36.4 % (35.4-49); HEMOGLOBIN 12.4 GM/dL (11.7-16.9); MCH 35.8 pg (25.7-33.7); MCHC 34.1 g/dl (32.0-35.9); MEAN CELL VOLUME 104.9 fl (80-96); MEAN PLT VOLUME 8.5 fl (7.5-11.1); PLATELET COUNT 206 K/MM3 (134-434); RBC 3.47 M/mm3 (4.00-5.60); RDW 13.1 % (11.9-15.9); WHITE BLOOD COUNT 10.4 K/mm3 (4.0-10.0)
[2018-03-06 08:08] LABS: CHLORIDE 113 mmol/L (98-107); POTASSIUM 4.1 mmol/L (3.5-5.1); SODIUM 148 mmol/L (136-145)
[2018-03-06 08:29] LABS: ANION GAP 7 (8-16); BLOOD UREA NITROGEN 32 mg/dL (7-18); CALCIUM 8.4 mg/dL (8.5-10.1); CO2 28 mmol/L (21-32); CREATININE 1.9 mg/dL (0.7-1.3); GLUCOSE,RANDOM 85 mg/dL (74-106)
[2018-03-06] MEDS: LORATADINE 10 MG TABLET PO SCH (09:25)
[2018-03-06] MEDS: methylPREDNISolone NA SUCC 40 MG/1 ML VIAL IVPUSH SCH (09:52)
[2018-03-06] MEDS: SODIUM CHLORIDE NASAL SPRAY 44 ML BOTTLE NS SCH ×2 (10:33→21:20)
--- NOTE | 2018-03-06 11:27 | PN ---
Progress Note (short form) - Note Progress Note: PULMONARY CHART REVIEWED PATIENT EXAMINED NO CHANGE IN EXAM LABS NOTED CULTURES NEGATIVE THUS FAR IRON [place] APPRECIATED CREATININE IS INCREASING RENAL CONSULT NOTED (1) Hilar mass Code(s): R91.8 - OTHER NONSPECIFIC ABNORMAL FINDING OF LUNG FIELD (2) Pneumonia Code(s): J18.9 - PNEUMONIA, UNSPECIFIED ORGANISM (3) Down's syndrome Code(s): Q90.9 - DOWN SYNDROME, UNSPECIFIED (4) Mental retardation Code(s): F79 - UNSPECIFIED INTELLECTUAL DISABILITIES Assessment/Plan Renal dose antibiotics Free water to increase O2 as needed follow diet recommendations VTE prophylaxis follow renal function Julian BUI MD
--- NOTE | 2018-03-06 17:34 | PN ---
Physical Exam: SUBJECTIVE: Patient seen and examined. awoke from nap, now smiling. aid at bedside. OBJECTIVE: Vital Signs Period Temp Pulse Resp BP Sys/Jackson Pulse Ox Last 24 Hr 97.4 F-98.7 F 94-98 22-22 100-143/46-78 94-95 PE Neuro: awake, alert, no verbal Pulm: diminished mild wheeze, rhonchi CV: s1 s2 rrr 3/6 murmur Abd: s nt nd + bs Ext: left hand amputation, r hand edema, no le edema Laboratory Results - last 24 hr 03/06/18 03/06/18 06:45 06:45 WBC 10.4 H D RBC 3.47 L Hgb 12.4 Hct 36.4 MCV 104.9 H MCH 35.8 H MCHC 34.1 RDW 13.1 Plt Count 206 MPV 8.5 Sodium 148 H Potassium 4.1 Chloride 113 H Carbon Dioxide 28 Anion Gap 7 L BUN 32 H D Creatinine 1.9 H D Creat Clearance w eGFR 38.02 Random Glucose 85 Calcium 8.4 L Active Medications Generic Name Dose Route Start Last Admin Trade Name Freq PRN Reason Stop Dose Admin Acetaminophen 650 mg 03/02/18 18:13 Tylenol - PO Q4H PRN PAIN LEVEL 1 - 3 Albuterol Sulfate 1 amp 03/02/18 18:10 Ventolin 0.083% Nebulizer Soln - NEB Q4H PRN SHORT OF BREATH/WHEEZING Heparin Sodium (Porcine) 5,000 unit 03/03/18 06:00 03/06/18 14:23 Heparin - SQ 5,000 unit TID TANISHA Administration Piperacillin Sod/Tazobactam 50 mls @ 100 mls/hr 03/03/18 02:00 Sod 3.375 gm/ Dextrose IVPB Q8H-IV TANISHA Protocol Sodium Chloride 1,000 mls @ 50 mls/hr 03/02/18 18:15 03/02/18 23:44 Normal Saline - IV 03/03/18 18:14 50 mls/hr ASDIR TANISHA Administration Piperacillin Sod/Tazobactam 50 mls @ 100 mls/hr 03/03/18 02:00 03/03/18 01:02 Sod 3.375 gm/ Dextrose IVPB 03/03/18 02:29 100 mls/hr ONCE ONE Administration Levothyroxine Sodium 100 mcg 03/03/18 07:00 03/06/18 06:44 Synthroid - PO 100 mcg 0700 TANISHA Administration Loratadine 10 mg 03/03/18 10:00 03/06/18 09:25 Claritin - PO 10 mg DAILY TANISHA Administration Neomycin/Polymyxin/Dexamethasone 2 drop 03/03/18 00:00 03/06/18 17:15 Maxitrol Eye Drops - OU 2 drop Q6HPO TANISHA Administration Non-Formulary Medication 4 drop 03/03/18 10:00 Phenyleph/Mineral Oil/Petrolat AU DAILY TANISHA Sodium Chloride 1 spray 03/02/18 22:00 03/06/18 10:33 [place] Nasal [place] - NS 1 spray BID TANISHA Administration Assessment: 47 year old male with severe MR presented from [facility] with wheezing Plan: 1. Sepsis Pneumonia - Leukocytosis improved - Zosyn adjusted for cr cl - Continue short course steroids 2. Hypothyroid - Cont synthroid 3. AGATHA, hypernatramia - Free water deficit .5L - Cr improved - Cont free water intake - Renal/bladder US unremarkable 4. DVT ppx - Heparin sq Problem List - Problems (1) Pneumonia Code(s): J18.9 - PNEUMONIA, UNSPECIFIED ORGANISM (2) Down's syndrome Code(s): Q90.9 - DOWN SYNDROME, UNSPECIFIED (3) Mental retardation Code(s): F79 - UNSPECIFIED INTELLECTUAL DISABILITIES Visit type - Emergency Visit Emergency Visit: Yes ED Registration Date: 03/02/18 Care time: The patient presented to the Emergency Department on the above date and was hospitalized for further evaluation of their emergent condition. - New Patient This patient is new to me today: No - Critical Care Critical Care patient: No
--- NOTE | 2018-03-06 21:36 | PN ---
Progress Note (short form) - Note Progress Note: hospital acquired sosa dehydration hypernatremia pna mentally retarded Active Medications Acetaminophen (Tylenol -) 650 mg PO Q4H PRN PRN Reason: PAIN LEVEL 1 - 3 Albuterol Sulfate (Ventolin 0.083% Nebulizer Soln -) 1 amp NEB Q4H PRN PRN Reason: SHORT OF BREATH/WHEEZING Heparin Sodium (Porcine) (Heparin -) 5,000 unit SQ TID TANISHA Last Admin: 03/06/18 21:19 Dose: Not Given Piperacillin Sod/Tazobactam (Sod 3.375 gm/ Dextrose) 50 mls @ 100 mls/hr IVPB Q8H-IV TANISHA; Protocol Sodium Chloride (Normal Saline -) 1,000 mls @ 50 mls/hr IV ASDIR TANISHA Stop: 03/03/18 18:14 Last Admin: 03/02/18 23:44 Dose: 50 mls/hr Piperacillin Sod/Tazobactam (Sod 3.375 gm/ Dextrose) 50 mls @ 100 mls/hr IVPB ONCE ONE Stop: 03/03/18 02:29 Last Admin: 03/03/18 01:02 Dose: 100 mls/hr Levothyroxine Sodium (Synthroid -) 100 mcg PO 0700 [facility] Last Admin: 03/06/18 06:44 Dose: 100 mcg Loratadine (Claritin -) 10 mg PO DAILY [facility] Last Admin: 03/06/18 09:25 Dose: 10 mg Neomycin/Polymyxin/Dexamethasone (Maxitrol Eye Drops -) 2 drop OU Q6HPO [facility] Last Admin: 03/06/18 17:15 Dose: 2 drop Non-Formulary Medication (Phenyleph/Mineral Oil/Petrolat) 4 drop AU DAILY [facility] Sodium Chloride ([place] Nasal [place] -) 1 spray NS BID [facility] Last Admin: 03/06/18 21:20 Dose: 1 spray Last Vital Signs Temp Pulse Resp BP Pulse Ox 97.8 F 92 H 20 117/76 94 L 03/06/18 19:00 03/06/18 19:00 03/06/18 19:00 03/06/18 19:00 03/06/18 09:00 oral mucosa moist Lungs clear Heart reg Abd soft nontender ext no edema CBC, BMP 03/06/18 06:45 03/06/18 06:45 PMHX (per medical record) MR Downs syndrome pericardial effusion, systolic dysfunction congenital heart anomaly hypothyroidism lymphocytic thyroiditis h/o mrsa infection cataracts hearing impaired congenital deformity of the hand, shoulder, upper extremities Plan- continue to encourage oral hydration and with IVF if tolerated monitor urine output by recording the number of wet diapers
[2018-03-07] MEDS ORDERED: DEXTROSE 5%-WATER - 50 ML IVPB ONE ×3 (00:35→17:13)
[2018-03-07] MEDS ORDERED: PIPERACILLIN/TAZOBACTAM 2.25 GM VIAL IVPB ONE ×3 (00:35→17:13)
[2018-03-07] MEDS: NEO/POLYMYX B SULF/DEXAMETH OPHTHALMIC 5ML BOTTLE OU SCH ×4 (00:35→19:37)
[2018-03-07] MEDS: PIPERACILLIN/TAZOB 2.25 GM 2.25 GM in DEXTROSE 5%-WATER - 50 ML IVPB SCH ×3 (01:29→17:16)
[2018-03-07] MEDS: HEPARIN NA (PORCINE) 5,000 UNITS/ML 1ML VIAL SQ SCH ×2 (05:47→14:01)
[2018-03-07] MEDS: LEVOTHYROXINE NA 100 MCG TABLET (FP) PO SCH (06:09)
[2018-03-07] MEDS: methylPREDNISolone NA SUCC 40 MG/1 ML VIAL IVPUSH SCH (10:38)
[2018-03-07] MEDS: LORATADINE 10 MG TABLET PO SCH (10:38)
[2018-03-07] MEDS: SODIUM CHLORIDE NASAL SPRAY 44 ML BOTTLE NS SCH (10:38)
[2018-03-07 12:15] LABS: ANION GAP 6 (8-16); BLOOD UREA NITROGEN 26 mg/dL (7-18); CALCIUM 8.5 mg/dL (8.5-10.1); CHLORIDE 108 mmol/L (98-107); CO2 30 mmol/L (21-32); CREATININE 1.5 mg/dL (0.7-1.3); GLUCOSE,RANDOM 110 mg/dL (74-106); POTASSIUM 3.7 mmol/L (3.5-5.1); SODIUM 144 mmol/L (136-145)
--- NOTE | 2018-03-07 12:42 | PN ---
Progress Note, Physician History of Present Illness: PULMONARY ALERT,NAD,-SOB,-CONGESTION. - Current Medication List Current Medications: Active Medications Acetaminophen (Tylenol -) 650 mg PO Q4H PRN PRN Reason: PAIN LEVEL 1 - 3 Albuterol Sulfate (Ventolin 0.083% Nebulizer Soln -) 1 amp NEB Q4H PRN PRN Reason: SHORT OF BREATH/WHEEZING Heparin Sodium (Porcine) (Heparin -) 5,000 unit SQ TID TANISHA Last Admin: 03/07/18 05:47 Dose: Not Given Piperacillin Sod/Tazobactam (Sod 3.375 gm/ Dextrose) 50 mls @ 100 mls/hr IVPB Q8H-IV TANISHA; Protocol Sodium Chloride (Normal Saline -) 1,000 mls @ 50 mls/hr IV ASDIR TANISHA Stop: 03/03/18 18:14 Last Admin: 03/02/18 23:44 Dose: 50 mls/hr Piperacillin Sod/Tazobactam (Sod 3.375 gm/ Dextrose) 50 mls @ 100 mls/hr IVPB ONCE ONE Stop: 03/03/18 02:29 Last Admin: 03/03/18 01:02 Dose: 100 mls/hr Levothyroxine Sodium (Synthroid -) 100 mcg PO 0700 TANISHA Last Admin: 03/07/18 06:09 Dose: 100 mcg Loratadine (Claritin -) 10 mg PO DAILY [facility] Last Admin: 03/07/18 10:38 Dose: 10 mg Neomycin/Polymyxin/Dexamethasone (Maxitrol Eye Drops -) 2 drop OU Q6HPO TANISHA Last Admin: 03/07/18 05:46 Dose: 2 drop Non-Formulary Medication (Phenyleph/Mineral Oil/Petrolat) 4 drop AU DAILY TANISHA Sodium Chloride ([place] Nasal [place] -) 1 spray NS BID TANISHA Last Admin: 03/07/18 10:38 Dose: 1 spray - Objective Vital Signs: Vital Signs Temperature 97.3 F L 03/07/18 09:37 Pulse Rate 108 H 03/07/18 09:37 Respiratory Rate 18 03/07/18 09:37 Blood Pressure 102/68 03/07/18 09:37 O2 Sat by Pulse Oximetry (%) 93 L 03/07/18 09:38 Constitutional: Yes: Calm, Thin Eyes: Yes: WNL HENT: Yes: WNL Neck: Yes: WNL Cardiovascular: Yes: Regular Rate and Rhythm, S1, S2 Respiratory: Yes: Diminished Gastrointestinal: Yes: Normal Bowel Sounds, Soft Extremities: Yes: WNL Edema: No Labs: CBC, BMP 03/06/18 06:45 03/07/18 11:30 Assessment/Plan (1) Hilar mass Code(s): R91.8 - OTHER NONSPECIFIC ABNORMAL FINDING OF LUNG FIELD (2) Pneumonia Code(s): J18.9 - PNEUMONIA, UNSPECIFIED ORGANISM (3) Down's syndrome Code(s): Q90.9 - DOWN SYNDROME, UNSPECIFIED (4) Mental retardation Code(s): F79 - UNSPECIFIED INTELLECTUAL DISABILITIES 5 . AGATHA Assessment/Plan Renal dose antibiotics IVF O2 as needed follow diet recommendations VTE prophylaxis monitor renal function DR BELL
--- NOTE | 2018-03-07 13:21 | PN ---
Physical Exam: SUBJECTIVE: Patient seen and examined. He appears at baseline, eating lunch with aid. OBJECTIVE: Vital Signs Period Temp Pulse Resp BP Sys/Jackson Pulse Ox Last 24 Hr 97.2 F-98.7 F 91-108 18-22 102-143/68-96 93-94 PE Neuro: awake, alert, no verbal Pulm: clear, scattered rhonchi mild wheeze CV: s1 s2 rrr 3/6 murmur Abd: s nt nd + bs Ext: left hand amputation, r hand edema, no le edema Laboratory Results - last 24 hr 03/07/18 11:30 Sodium 144 Potassium 3.7 Chloride 108 H Carbon Dioxide 30 Anion Gap 6 L BUN 26 H Creatinine 1.5 H D Creat Clearance w eGFR 49.95 Random Glucose 110 H D Calcium 8.5 Active Medications Generic Name Dose Route Start Last Admin Trade Name Freq PRN Reason Stop Dose Admin Acetaminophen 650 mg 03/02/18 18:13 Tylenol - PO Q4H PRN PAIN LEVEL 1 - 3 Albuterol Sulfate 1 amp 03/02/18 18:10 Ventolin 0.083% Nebulizer Soln - NEB Q4H PRN SHORT OF BREATH/WHEEZING Heparin Sodium (Porcine) 5,000 unit 03/03/18 06:00 03/07/18 05:47 Heparin - SQ Not Given TID TANISHA Piperacillin Sod/Tazobactam 50 mls @ 100 mls/hr 03/03/18 02:00 Sod 3.375 gm/ Dextrose IVPB Q8H-IV TANISHA Protocol Sodium Chloride 1,000 mls @ 50 mls/hr 03/02/18 18:15 03/02/18 23:44 Normal Saline - IV 03/03/18 18:14 50 mls/hr ASDIR TANISHA Administration Piperacillin Sod/Tazobactam 50 mls @ 100 mls/hr 03/03/18 02:00 03/03/18 01:02 Sod 3.375 gm/ Dextrose IVPB 03/03/18 02:29 100 mls/hr ONCE ONE Administration Levothyroxine Sodium 100 mcg 03/03/18 07:00 03/07/18 06:09 Synthroid - PO 100 mcg 0700 TANISHA Administration Loratadine 10 mg 03/03/18 10:00 03/07/18 10:38 Claritin - PO 10 mg DAILY TANISHA Administration Neomycin/Polymyxin/Dexamethasone 2 drop 03/03/18 00:00 03/07/18 05:46 Maxitrol Eye Drops - OU 2 drop Q6HPO TANISHA Administration Non-Formulary Medication 4 drop 03/03/18 10:00 Phenyleph/Mineral Oil/Petrolat AU DAILY TANISHA Sodium Chloride 1 spray 03/02/18 22:00 03/07/18 10:38 [place] Nasal [place] - NS 1 spray BID TANISHA Administration Assessment: 47 year old male with severe MR presented from [facility] with wheezing Plan: 1. Sepsis Pneumonia - Improving - Zosyn ( day 3) - Home on augmentin for complete of 7 days - Continue short course steroids 2. Hypothyroid - Cont synthroid 3. AGATHA, hypernatramia - Improved - Cont free water intake - Renal/bladder US unremarkable 4. DVT ppx - Heparin sq Problem List - Problems (1) Pneumonia Code(s): J18.9 - PNEUMONIA, UNSPECIFIED ORGANISM (2) Down's syndrome Code(s): Q90.9 - DOWN SYNDROME, UNSPECIFIED (3) Mental retardation Code(s): F79 - UNSPECIFIED INTELLECTUAL DISABILITIES Visit type - Emergency Visit Emergency Visit: Yes ED Registration Date: 03/02/18 Care time: The patient presented to the Emergency Department on the above date and was hospitalized for further evaluation of their emergent condition. - New Patient This patient is new to me today: No - Critical Care Critical Care patient: No
--- NOTE | 2018-03-07 13:44 | PN ---
Progress Note, Physician Chief Complaint: ID Comfortable Remains afebrile Zosyn day 6 therapy - Current Medication List Current Medications: Active Medications Acetaminophen (Tylenol -) 650 mg PO Q4H PRN PRN Reason: PAIN LEVEL 1 - 3 Albuterol Sulfate (Ventolin 0.083% Nebulizer Soln -) 1 amp NEB Q4H PRN PRN Reason: SHORT OF BREATH/WHEEZING Heparin Sodium (Porcine) (Heparin -) 5,000 unit SQ TID TANISHA Last Admin: 03/07/18 05:47 Dose: Not Given Piperacillin Sod/Tazobactam (Sod 3.375 gm/ Dextrose) 50 mls @ 100 mls/hr IVPB Q8H-IV TANISHA; Protocol Sodium Chloride (Normal Saline -) 1,000 mls @ 50 mls/hr IV ASDIR TANISHA Stop: 03/03/18 18:14 Last Admin: 03/02/18 23:44 Dose: 50 mls/hr Piperacillin Sod/Tazobactam (Sod 3.375 gm/ Dextrose) 50 mls @ 100 mls/hr IVPB ONCE ONE Stop: 03/03/18 02:29 Last Admin: 03/03/18 01:02 Dose: 100 mls/hr Levothyroxine Sodium (Synthroid -) 100 mcg PO 0700 TANISHA Last Admin: 03/07/18 06:09 Dose: 100 mcg Loratadine (Claritin -) 10 mg PO DAILY [facility] Last Admin: 03/07/18 10:38 Dose: 10 mg Neomycin/Polymyxin/Dexamethasone (Maxitrol Eye Drops -) 2 drop OU Q6HPO TANISHA Last Admin: 03/07/18 05:46 Dose: 2 drop Non-Formulary Medication (Phenyleph/Mineral Oil/Petrolat) 4 drop AU DAILY [facility] Sodium Chloride ([place] Nasal [place] -) 1 spray NS BID TANISHA Last Admin: 03/07/18 10:38 Dose: 1 spray - Objective Vital Signs: Vital Signs Temperature 97.3 F L 03/07/18 09:37 Pulse Rate 108 H 03/07/18 09:37 Respiratory Rate 18 03/07/18 09:37 Blood Pressure 102/68 03/07/18 09:37 O2 Sat by Pulse Oximetry (%) 93 L 03/07/18 09:38 Labs: CBC, BMP 03/06/18 06:45 03/07/18 11:30 Assessment/Plan Microbiology 03/04/18 14:40 Urine For Antigen Detection Legionella Antigen - Final 03/04/18 14:40 Urine For Antigen Detection Streptococcus pneumoniae Antigen (M - Final 03/02/18 19:00 Blood - Peripheral Venous Blood Culture - Preliminary NO GROWTH OBTAINED AFTER 96 HOURS, INCUBATION TO CONTINUE FOR 1 DAYS. 03/02/18 19:00 Blood - Peripheral Venous Blood Culture - Preliminary NO GROWTH OBTAINED AFTER 96 HOURS, INCUBATION TO CONTINUE FOR 1 DAYS. Laboratory Tests 03/06/18 03/07/18 06:45 11:30 WBC 10.4 H D Hgb 12.4 Hct 36.4 Plt Count 206 Creat Clearance w eGFR 49.95 Assessment Rx for PNA day 5 empiric Plan Consider switch to Augmentin suspension for another day or 2 Kindly recall as needed Miles BUNN
--- NOTE | 2018-03-07 14:30 | PN ---
Progress Note, Physician History of Present Illness: Pt seen and examined at bedside. He is accompanied by health aid from center. - Current Medication List Current Medications: Active Medications Acetaminophen (Tylenol -) 650 mg PO Q4H PRN PRN Reason: PAIN LEVEL 1 - 3 Albuterol Sulfate (Ventolin 0.083% Nebulizer Soln -) 1 amp NEB Q4H PRN PRN Reason: SHORT OF BREATH/WHEEZING Heparin Sodium (Porcine) (Heparin -) 5,000 unit SQ TID TANISHA Last Admin: 03/07/18 14:01 Dose: 5,000 unit Piperacillin Sod/Tazobactam (Sod 3.375 gm/ Dextrose) 50 mls @ 100 mls/hr IVPB Q8H-IV TANISHA; Protocol Sodium Chloride (Normal Saline -) 1,000 mls @ 50 mls/hr IV ASDIR TANISHA Stop: 03/03/18 18:14 Last Admin: 03/02/18 23:44 Dose: 50 mls/hr Piperacillin Sod/Tazobactam (Sod 3.375 gm/ Dextrose) 50 mls @ 100 mls/hr IVPB ONCE ONE Stop: 03/03/18 02:29 Last Admin: 03/03/18 01:02 Dose: 100 mls/hr Levothyroxine Sodium (Synthroid -) 100 mcg PO 0700 TANISHA Last Admin: 03/07/18 06:09 Dose: 100 mcg Loratadine (Claritin -) 10 mg PO DAILY [facility] Last Admin: 03/07/18 10:38 Dose: 10 mg Neomycin/Polymyxin/Dexamethasone (Maxitrol Eye Drops -) 2 drop OU Q6HPO TANISHA Last Admin: 03/07/18 14:01 Dose: 2 drop Non-Formulary Medication (Phenyleph/Mineral Oil/Petrolat) 4 drop AU DAILY TANISHA Sodium Chloride ([place] Nasal [place] -) 1 spray NS BID TANISHA Last Admin: 03/07/18 10:38 Dose: 1 spray - Objective Vital Signs: Vital Signs Temperature 97.3 F L 03/07/18 09:37 Pulse Rate 108 H 03/07/18 09:37 Respiratory Rate 18 03/07/18 09:37 Blood Pressure 102/68 03/07/18 09:37 O2 Sat by Pulse Oximetry (%) 93 L 03/07/18 09:38 Constitutional: Yes: Calm Cardiovascular: Yes: S1, S2 Respiratory: Yes: Wheezes Gastrointestinal: Yes: Soft Genitourinary: Yes: Incontinence Musculoskeletal: Yes: Other (multiple deformitities) Edema: No Neurological: Yes: Pre-Existing Deficit Labs: CBC, BMP 03/06/18 06:45 03/07/18 11:30 Problem List - Problems (1) AGATHA (acute kidney injury) Code(s): N17.9 - ACUTE KIDNEY FAILURE, UNSPECIFIED (2) Pneumonia Code(s): J18.9 - PNEUMONIA, UNSPECIFIED ORGANISM Assessment/Plan Current Medications Generic Name Dose Route Start Last Admin Trade Name Freq PRN Reason Stop Dose Admin Acetaminophen 650 mg 03/02/18 18:13 Tylenol - PO Q4H PRN PAIN LEVEL 1 - 3 Albuterol Sulfate 1 amp 03/02/18 18:10 Ventolin 0.083% Nebulizer Soln - NEB Q4H PRN SHORT OF BREATH/WHEEZING Heparin Sodium (Porcine) 5,000 unit 03/03/18 06:00 03/07/18 14:01 Heparin - SQ 5,000 unit TID TANISHA Administration Piperacillin Sod/Tazobactam 50 mls @ 100 mls/hr 03/03/18 02:00 Sod 3.375 gm/ Dextrose IVPB Q8H-IV TANISHA Protocol Sodium Chloride 1,000 mls @ 50 mls/hr 03/02/18 18:15 03/02/18 23:44 Normal Saline - IV 03/03/18 18:14 50 mls/hr ASDIR TANISHA Administration Piperacillin Sod/Tazobactam 50 mls @ 100 mls/hr 03/03/18 02:00 03/03/18 01:02 Sod 3.375 gm/ Dextrose IVPB 03/03/18 02:29 100 mls/hr ONCE ONE Administration Levothyroxine Sodium 100 mcg 03/03/18 07:00 03/07/18 06:09 Synthroid - PO 100 mcg 0700 TANISHA Administration Loratadine 10 mg 03/03/18 10:00 03/07/18 10:38 Claritin - PO 10 mg DAILY TANISHA Administration Neomycin/Polymyxin/Dexamethasone 2 drop 03/03/18 00:00 03/07/18 14:01 Maxitrol Eye Drops - OU 2 drop Q6HPO TANISHA Administration Non-Formulary Medication 4 drop 03/03/18 10:00 Phenyleph/Mineral Oil/Petrolat AU DAILY TANISHA Sodium Chloride 1 spray 03/02/18 22:00 03/07/18 10:38 [place] Nasal [place] - NS 1 spray BID TANISHA Administration Impression 1. AGATHA 2. hypernatremia 3. PNA 4. Down Syndrome 5. developmental delay 6. hypothyroidism 7. lymphocytic thyroiditis 8. h/o mrsa infection 9. cataracts Plan - renal function is stabilizing - sodium improving - pt is tolerating diet with assistance - repeat labs in anm - abx per ID - discussed with medical team - change fluids to 1/[address] Briones
[2018-03-07] MEDS ORDERED: SODIUM CHLORIDE 0.45% 1,000 ML IV SCH (14:45)
--- NOTE | 2018-03-07 15:10 | PN ---
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
[2018-03-07] MEDS ORDERED: PT OWN MED DRAWER 7, Y5N ONE ×2 (19:35→22:01)
[2018-03-08] MEDS: SODIUM CHLORIDE NASAL SPRAY 44 ML BOTTLE NS SCH ×3 (00:48→21:42)
[2018-03-08] MEDS: NEO/POLYMYX B SULF/DEXAMETH OPHTHALMIC 5ML BOTTLE OU SCH ×4 (00:48→18:20)
[2018-03-08] MEDS: HEPARIN NA (PORCINE) 5,000 UNITS/ML 1ML VIAL SQ SCH ×4 (00:49→21:43)
[2018-03-08] MEDS ORDERED: PIPERACILLIN/TAZOBACTAM 2.25 GM VIAL IVPB ONE ×3 (01:37→17:12)
[2018-03-08] MEDS ORDERED: DEXTROSE 5%-WATER - 50 ML IVPB ONE ×3 (01:37→17:12)
[2018-03-08] MEDS: PIPERACILLIN/TAZOB 2.25 GM 2.25 GM in DEXTROSE 5%-WATER - 50 ML IVPB SCH ×3 (02:10→18:19)
[2018-03-08] MEDS: LEVOTHYROXINE NA 100 MCG TABLET (FP) PO SCH (07:07)
[2018-03-08 07:45] LABS: BASO % 0.3 % (0-2.0); EOS % 0.1 % (0-4.5); HEMOGLOBIN 12.7 GM/dL (11.7-16.9); LYMPH % 11.8 % (8-40); MCH 35.2 pg (25.7-33.7); MCHC 34.3 g/dl (32.0-35.9); MEAN CELL VOLUME 102.6 fl (80-96); MEAN PLT VOLUME 8.5 fl (7.5-11.1); MONO % 7.3 % (3.8-10.2); NEUT % 80.5 % (42.8-82.8); PLATELET COUNT 240 K/MM3 (134-434); RBC 3.61 M/mm3 (4.00-5.60); RDW 12.9 % (11.9-15.9); WHITE BLOOD COUNT 14.1 K/mm3 (4.0-10.0)
[2018-03-08 08:24] LABS: ANION GAP 9 (8-16); BLOOD UREA NITROGEN 29 mg/dL (7-18); CALCIUM 8.5 mg/dL (8.5-10.1); CHLORIDE 108 mmol/L (98-107); CO2 27 mmol/L (21-32); CREATININE 1.5 mg/dL (0.7-1.3); GLUCOSE,RANDOM 86 mg/dL (74-106); SODIUM 144 mmol/L (136-145)
[2018-03-08 08:54] LABS: ANISOCYTOSIS 1+; MACROCYTOSIS 1+; PLATELET ESTIMATE NORMAL
[2018-03-08] MEDS: LORATADINE 10 MG TABLET PO SCH (11:11)
--- NOTE | 2018-03-08 11:31 | PN ---
Progress Note (short form) - Note Progress Note: PULMONARY Pt nonverbal. No fevers recorded. Vital Signs Period Temp Pulse Resp BP Sys/Jackson Pulse Ox Last 24 Hr 97.3 F-97.5 F 20-94 18-20 104-155/66-88 Gen: NAD at rest Heart: RRR Lung: decreased breath sounds at the bases Abd: soft, nontender Ext: no edema CBC, BMP 03/08/18 06:45 03/08/18 06:45 Active Medications Acetaminophen (Tylenol -) 650 mg PO Q4H PRN PRN Reason: PAIN LEVEL 1 - 3 Albuterol Sulfate (Ventolin 0.083% Nebulizer Soln -) 1 amp NEB Q4H PRN PRN Reason: SHORT OF BREATH/WHEEZING Heparin Sodium (Porcine) (Heparin -) 5,000 unit SQ TID TANISHA Last Admin: 03/08/18 07:06 Dose: 5,000 unit Piperacillin Sod/Tazobactam (Sod 3.375 gm/ Dextrose) 50 mls @ 100 mls/hr IVPB Q8H-IV TANISHA; Protocol Sodium Chloride (Normal Saline -) 1,000 mls @ 50 mls/hr IV ASDIR TANISHA Stop: 03/03/18 18:14 Last Admin: 03/02/18 23:44 Dose: 50 mls/hr Piperacillin Sod/Tazobactam (Sod 3.375 gm/ Dextrose) 50 mls @ 100 mls/hr IVPB ONCE ONE Stop: 03/03/18 02:29 Last Admin: 03/03/18 01:02 Dose: 100 mls/hr Levothyroxine Sodium (Synthroid -) 100 mcg PO 0700 TANISHA Last Admin: 03/08/18 07:07 Dose: 100 mcg Loratadine (Claritin -) 10 mg PO DAILY TANISHA Last Admin: 03/08/18 11:11 Dose: 10 mg Neomycin/Polymyxin/Dexamethasone (Maxitrol Eye Drops -) 2 drop OU Q6HPO TANISHA Last Admin: 03/08/18 07:07 Dose: 2 drop Non-Formulary Medication (Phenyleph/Mineral Oil/Petrolat) 4 drop AU DAILY TANISHA Sodium Chloride ([place] Nasal [place] -) 1 spray NS BID TANISHA Last Admin: 03/08/18 11:11 Dose: 1 spray A/P Pneumonia Sepsis Acute Kidney Injury Severe Mental Retardation Hypothyroidism - continue antibiotics - inhaled bronchodilators as needed - DVT prophylaxis
--- NOTE | 2018-03-08 14:31 | PN ---
Progress Note, Physician History of Present Illness: Pt seen and examined at bedside. No acute change in events. - Current Medication List Current Medications: Active Medications Acetaminophen (Tylenol -) 650 mg PO Q4H PRN PRN Reason: PAIN LEVEL 1 - 3 Albuterol Sulfate (Ventolin 0.083% Nebulizer Soln -) 1 amp NEB Q4H PRN PRN Reason: SHORT OF BREATH/WHEEZING Heparin Sodium (Porcine) (Heparin -) 5,000 unit SQ TID TANISHA Last Admin: 03/08/18 07:06 Dose: 5,000 unit Piperacillin Sod/Tazobactam (Sod 3.375 gm/ Dextrose) 50 mls @ 100 mls/hr IVPB Q8H-IV TANISHA; Protocol Sodium Chloride (Normal Saline -) 1,000 mls @ 50 mls/hr IV ASDIR TANISHA Stop: 03/03/18 18:14 Last Admin: 03/02/18 23:44 Dose: 50 mls/hr Piperacillin Sod/Tazobactam (Sod 3.375 gm/ Dextrose) 50 mls @ 100 mls/hr IVPB ONCE ONE Stop: 03/03/18 02:29 Last Admin: 03/03/18 01:02 Dose: 100 mls/hr Levothyroxine Sodium (Synthroid -) 100 mcg PO 0700 [facility] Last Admin: 03/08/18 07:07 Dose: 100 mcg Loratadine (Claritin -) 10 mg PO DAILY [facility] Last Admin: 03/08/18 11:11 Dose: 10 mg Neomycin/Polymyxin/Dexamethasone (Maxitrol Eye Drops -) 2 drop OU Q6HPO [facility] Last Admin: 03/08/18 07:07 Dose: 2 drop Non-Formulary Medication (Phenyleph/Mineral Oil/Petrolat) 4 drop AU DAILY [facility] Sodium Chloride ([place] Nasal [place] -) 1 spray NS BID [facility] Last Admin: 03/08/18 11:11 Dose: 1 spray - Objective Vital Signs: Vital Signs Temperature 97.4 F L 03/08/18 06:00 Pulse Rate 81 03/08/18 06:00 Respiratory Rate 18 03/08/18 06:00 Blood Pressure 155/88 03/08/18 06:00 O2 Sat by Pulse Oximetry (%) 93 L 03/07/18 09:38 Constitutional: Yes: Calm Eyes: Yes: Conjunctiva Clear Cardiovascular: Yes: S1, S2 Respiratory: Yes: CTA Bilaterally Gastrointestinal: Yes: Soft Genitourinary: Yes: Incontinence Edema: No Neurological: Yes: Pre-Existing Deficit Labs: CBC, BMP 03/08/18 06:45 03/08/18 06:45 Problem List - Problems (1) AGATHA (acute kidney injury) Code(s): N17.9 - ACUTE KIDNEY FAILURE, UNSPECIFIED (2) Pneumonia Code(s): J18.9 - PNEUMONIA, UNSPECIFIED ORGANISM Assessment/Plan Current Medications Generic Name Dose Route Start Last Admin Trade Name Freq PRN Reason Stop Dose Admin Acetaminophen 650 mg 03/02/18 18:13 Tylenol - PO Q4H PRN PAIN LEVEL 1 - 3 Albuterol Sulfate 1 amp 03/02/18 18:10 Ventolin 0.083% Nebulizer Soln - NEB Q4H PRN SHORT OF BREATH/WHEEZING Heparin Sodium (Porcine) 5,000 unit 03/03/18 06:00 03/08/18 07:06 Heparin - SQ 5,000 unit TID TANISHA Administration Piperacillin Sod/Tazobactam 50 mls @ 100 mls/hr 03/03/18 02:00 Sod 3.375 gm/ Dextrose IVPB Q8H-IV TANISHA Protocol Sodium Chloride 1,000 mls @ 50 mls/hr 03/02/18 18:15 03/02/18 23:44 Normal Saline - IV 03/03/18 18:14 50 mls/hr ASDIR TANISHA Administration Piperacillin Sod/Tazobactam 50 mls @ 100 mls/hr 03/03/18 02:00 03/03/18 01:02 Sod 3.375 gm/ Dextrose IVPB 03/03/18 02:29 100 mls/hr ONCE ONE Administration Levothyroxine Sodium 100 mcg 03/03/18 07:00 03/08/18 07:07 Synthroid - PO 100 mcg 0700 TANISHA Administration Loratadine 10 mg 03/03/18 10:00 03/08/18 11:11 Claritin - PO 10 mg DAILY TANISHA Administration Neomycin/Polymyxin/Dexamethasone 2 drop 03/03/18 00:00 03/08/18 07:07 Maxitrol Eye Drops - OU 2 drop Q6HPO TANISHA Administration Non-Formulary Medication 4 drop 03/03/18 10:00 Phenyleph/Mineral Oil/Petrolat AU DAILY TANISHA Sodium Chloride 1 spray 03/02/18 22:00 03/08/18 11:11 [place] Nasal [place] - NS 1 spray BID TANISHA Administration Impression 1. AGATHA 2. hypernatremia 3. PNA 4. Down Syndrome 5. developmental delay 6. hypothyroidism 7. lymphocytic thyroiditis 8. h/o mrsa infection 9. cataracts Plan - abx per ID - repeat labs in a - if renal function is not improving repeat urine studies - will change fluids to 1/2 ns - monitor vitals - will follow Dr Briones
[2018-03-08] MEDS: SODIUM CHLORIDE 0.45% 1,000 ML IV SCH (14:42)
--- NOTE | 2018-03-08 15:32 | PN ---
Physical Exam: SUBJECTIVE: Patient seen and examined at the bedside. Feels well as per DANCE TEACHER. Patient interactive, in no acute distress. Non verbal at baseline. OBJECTIVE: WBC bumped up but likely secondary to solumedrol that he received x 5 days, will monitor AGATHA improving Vital Signs Period Temp Pulse Resp BP Sys/Jackson Pulse Ox Last 24 Hr 97.3 F-97.9 F 20-81 18-18 104-155/66-88 GENERAL: The patient is awake, alert, in no acute distress, hx of severe MR HEAD: Normal with no signs of trauma. EYES: PERRL, extraocular movements intact, sclera anicteric, conjunctiva clear. No ptosis. ENT: moist mucous membranes. NECK: Trachea midline, full range of motion, supple. LUNGS: Breath sounds equal, clear to auscultation bilaterally, no accessory muscle use. HEART: Regular rate and rhythm, S1, S2 without murmur, rub or gallop. ABDOMEN: Soft, nontender, nondistended, normoactive bowel sounds EXTREMITIES: no edema. NEUROLOGICAL: Normal speech, gait not observed. PSYCH: Normal mood, normal affect. SKIN: Warm, dry, normal turgor, no rashes or lesions noted Laboratory Results - last 24 hr 03/08/18 03/08/18 06:45 06:45 WBC 14.1 H D RBC 3.61 L Hgb 12.7 Hct 37.0 MCV 102.6 H MCH 35.2 H MCHC 34.3 RDW 12.9 Plt Count 240 MPV 8.5 Absolute Neuts (auto) 11.4 Neutrophils % 80.5 Neutrophils % (Manual) 80.0 Band Neutrophils % 0.0 Lymphocytes % 11.8 D Lymphocytes % (Manual) 11.0 D Monocytes % 7.3 D Monocytes % (Manual) 8 D Eosinophils % 0.1 D Eosinophils % (Manual) 0.0 Basophils % 0.3 Basophils % (Manual) 0.0 Myelocytes % (Man) 1 D Promyelocytes % (Man) 0 Blast Cells % (Manual) 0 Nucleated RBC % 0 Metamyelocytes 0 Hypochromia 0 Platelet Estimate Normal Polychromasia 0 Poikilocytosis 0 Anisocytosis 1+ Microcytosis 0 Macrocytosis 1+ Sodium 144 Potassium 4.0 Chloride 108 H Carbon Dioxide 27 Anion Gap 9 BUN 29 H Creatinine 1.5 H Creat Clearance w eGFR 49.95 Random Glucose 86 D Calcium 8.5 Active Medications Generic Name Dose Route Start Last Admin Trade Name Freq PRN Reason Stop Dose Admin Acetaminophen 650 mg 03/02/18 18:13 Tylenol - PO Q4H PRN PAIN LEVEL 1 - 3 Albuterol Sulfate 1 amp 03/02/18 18:10 Ventolin 0.083% Nebulizer Soln - NEB Q4H PRN SHORT OF BREATH/WHEEZING Heparin Sodium (Porcine) 5,000 unit 03/03/18 06:00 03/08/18 14:47 Heparin - SQ Not Given TID TANISHA Piperacillin Sod/Tazobactam 50 mls @ 100 mls/hr 03/03/18 02:00 Sod 3.375 gm/ Dextrose IVPB Q8H-IV TANISHA Protocol Sodium Chloride 1,000 mls @ 50 mls/hr 03/02/18 18:15 03/02/18 23:44 Normal Saline - IV 03/03/18 18:14 50 mls/hr ASDIR TANISHA Administration Piperacillin Sod/Tazobactam 50 mls @ 100 mls/hr 03/03/18 02:00 03/03/18 01:02 Sod 3.375 gm/ Dextrose IVPB 03/03/18 02:29 100 mls/hr ONCE ONE Administration Levothyroxine Sodium 100 mcg 03/03/18 07:00 03/08/18 07:07 Synthroid - PO 100 mcg 0700 TANISHA Administration Loratadine 10 mg 03/03/18 10:00 03/08/18 11:11 Claritin - PO 10 mg DAILY TANISHA Administration Neomycin/Polymyxin/Dexamethasone 2 drop 03/03/18 00:00 03/08/18 07:07 Maxitrol Eye Drops - OU 2 drop Q6HPO TANISHA Administration Non-Formulary Medication 4 drop 03/03/18 10:00 Phenyleph/Mineral Oil/Petrolat AU DAILY TANISHA Sodium Chloride 1 spray 03/02/18 22:00 03/08/18 11:11 [place] Nasal [place] - NS 1 spray BID TANISHA Administration ASSESSMENT/PLAN: Patient is a 47 year old male with severe MR from [place]. He presented to the ED on 03/02/2018 with shortness of breath and found to have pneumonia. His other past medical history includes down's syndrome, pericardial effusion, systolic dysfunction, congenital heart anomaly, hypothyroidism, lymphocytic thyroiditis, and congenital orthopedic deformities. Pulm: Pneumonia, acute Leukocytosis, wbc trending down 23>14, but had mild WBC bump up today likely secondary to solumedrol 40mg ivpush daily x 5 days (03/03-03/07). Pneumonia likely secondary to aspiration pneumonia, speech/swallow following Duonebs prn, tolerating room air. Zosyn for pneumonia, convert to Augmentin on 03/09/18 in anticipation of discharge. Chest xray with interval focal opacity in the right mid lung measuring 4cm suggestive of airspace disease/pneumonia. Monitor respiratory status but currently tolerating room air. Renal AGATHA, improving on 1/2 NS as per renal. Monitor CMP in a.m. Endocrine Hypothyroid, chronic On Synthroid FEN [place] thickened fluids Monitor electrolytes Aspiration precautions Prophy Heparin Disposition: full code Visit type - Emergency Visit Emergency Visit: Yes ED Registration Date: 03/02/18 Care time: The patient presented to the Emergency Department on the above date and was hospitalized for further evaluation of their emergent condition. - New Patient This patient is new to me today: No - Critical Care Critical Care patient: No - Discharge Referral Referred to [facility] No
[2018-03-09] MEDS: SODIUM CHLORIDE 0.45% 1,000 ML IV SCH ×2 (00:10→17:48)
[2018-03-09] MEDS: NEO/POLYMYX B SULF/DEXAMETH OPHTHALMIC 5ML BOTTLE OU SCH ×4 (00:11→17:46)
[2018-03-09] MEDS ORDERED: PIPERACILLIN/TAZOBACTAM 2.25 GM VIAL IVPB ONE ×2 (01:50→09:11)
[2018-03-09] MEDS ORDERED: DEXTROSE 5%-WATER - 50 ML IVPB ONE ×2 (01:50→09:11)
[2018-03-09] MEDS: PIPERACILLIN/TAZOB 2.25 GM 2.25 GM in DEXTROSE 5%-WATER - 50 ML IVPB SCH ×2 (02:11→09:18)
[2018-03-09] MEDS: HEPARIN NA (PORCINE) 5,000 UNITS/ML 1ML VIAL SQ SCH ×3 (06:15→21:54)
[2018-03-09] MEDS: LEVOTHYROXINE NA 100 MCG TABLET (FP) PO SCH (06:22)
[2018-03-09] MEDS ORDERED: PT OWN MED DRAWER 7, Y5N ONE ×4 (09:11→20:56)
[2018-03-09] MEDS: SODIUM CHLORIDE NASAL SPRAY 44 ML BOTTLE NS SCH ×2 (09:18→21:53)
[2018-03-09] MEDS: LORATADINE 10 MG TABLET PO SCH (09:18)
[2018-03-09 09:26] LABS: BASO % 0.7 % (0-2.0); EOS % 3.1 % (0-4.5); HEMATOCRIT 40.8 % (35.4-49); HEMOGLOBIN 13.9 GM/dL (11.7-16.9); LYMPH % 18.2 % (8-40); MCH 35.3 pg (25.7-33.7); MEAN CELL VOLUME 103.9 fl (80-96); MEAN PLT VOLUME 8.4 fl (7.5-11.1); PLATELET COUNT 232 K/MM3 (134-434); RBC 3.93 M/mm3 (4.00-5.60); RDW 13.1 % (11.9-15.9); WHITE BLOOD COUNT 9.8 K/mm3 (4.0-10.0)
[2018-03-09 10:02] LABS: CHLORIDE 105 mmol/L (98-107); SODIUM 143 mmol/L (136-145)
[2018-03-09 10:20] LABS: ALBUMIN 2.6 g/dl (3.4-5.0); ALK PHOS 64 U/L (45-117); ANION GAP 6 (8-16); BILIRUBIN,TOTAL 0.4 mg/dL (0.2-1.0); BLOOD UREA NITROGEN 22 mg/dL (7-18); CALCIUM 8.4 mg/dL (8.5-10.1); CO2 32 mmol/L (21-32); CREATININE 1.5 mg/dL (0.7-1.3); GLUCOSE,RANDOM 138 mg/dL (74-106); SGOT/AST 9 U/L (15-37); SGPT/ALT 16 U/L (12-78); TOT PROT 6.6 g/dl (6.4-8.2)
--- NOTE | 2018-03-09 12:52 | PN ---
Progress Note, Physician History of Present Illness: Pt seen and examined at bedside. No great change overnight. His aid is at bedside and feels that he is back to his baseline. - Current Medication List Current Medications: Active Medications Acetaminophen (Tylenol -) 650 mg PO Q4H PRN PRN Reason: PAIN LEVEL 1 - 3 Albuterol Sulfate (Ventolin 0.083% Nebulizer Soln -) 1 amp NEB Q4H PRN PRN Reason: SHORT OF BREATH/WHEEZING Heparin Sodium (Porcine) (Heparin -) 5,000 unit SQ TID TANISHA Last Admin: 03/09/18 06:15 Dose: Not Given Piperacillin Sod/Tazobactam (Sod 3.375 gm/ Dextrose) 50 mls @ 100 mls/hr IVPB Q8H-IV TANISHA; Protocol Sodium Chloride (Normal Saline -) 1,000 mls @ 50 mls/hr IV ASDIR TANISHA Stop: 03/03/18 18:14 Last Admin: 03/02/18 23:44 Dose: 50 mls/hr Piperacillin Sod/Tazobactam (Sod 3.375 gm/ Dextrose) 50 mls @ 100 mls/hr IVPB ONCE ONE Stop: 03/03/18 02:29 Last Admin: 03/03/18 01:02 Dose: 100 mls/hr Levothyroxine Sodium (Synthroid -) 100 mcg PO 0700 [facility] Last Admin: 03/09/18 06:22 Dose: 100 mcg Loratadine (Claritin -) 10 mg PO DAILY [facility] Last Admin: 03/09/18 09:18 Dose: 10 mg Neomycin/Polymyxin/Dexamethasone (Maxitrol Eye Drops -) 2 drop OU Q6HPO TANISHA Last Admin: 03/09/18 11:52 Dose: 2 drop Non-Formulary Medication (Phenyleph/Mineral Oil/Petrolat) 4 drop AU DAILY [facility] Sodium Chloride ([place] Nasal [place] -) 1 spray NS BID TANISHA Last Admin: 03/09/18 09:18 Dose: 1 spray - Objective Vital Signs: Vital Signs Temperature 98.3 F 03/09/18 09:02 Pulse Rate 59 L 03/09/18 09:02 Respiratory Rate 22 03/09/18 09:02 Blood Pressure 89/57 03/09/18 09:02 O2 Sat by Pulse Oximetry (%) 94 L 03/08/18 21:00 Constitutional: Yes: Calm Cardiovascular: Yes: S1, S2 Respiratory: Yes: Wheezes Gastrointestinal: Yes: Soft Genitourinary: Yes: Incontinence Musculoskeletal: Yes: Other (deformed limbs) Edema: No Neurological: Yes: Pre-Existing Deficit Labs: CBC, BMP 03/09/18 09:15 03/09/18 09:15 Problem List - Problems (1) AGATHA (acute kidney injury) Code(s): N17.9 - ACUTE KIDNEY FAILURE, UNSPECIFIED (2) Pneumonia Code(s): J18.9 - PNEUMONIA, UNSPECIFIED ORGANISM Assessment/Plan Current Medications Generic Name Dose Route Start Last Admin Trade Name Freq PRN Reason Stop Dose Admin Acetaminophen 650 mg 03/02/18 18:13 Tylenol - PO Q4H PRN PAIN LEVEL 1 - 3 Albuterol Sulfate 1 amp 03/02/18 18:10 Ventolin 0.083% Nebulizer Soln - NEB Q4H PRN SHORT OF BREATH/WHEEZING Heparin Sodium (Porcine) 5,000 unit 03/03/18 06:00 03/09/18 06:15 Heparin - SQ Not Given TID TANISHA Piperacillin Sod/Tazobactam 50 mls @ 100 mls/hr 03/03/18 02:00 Sod 3.375 gm/ Dextrose IVPB Q8H-IV TANISHA Protocol Sodium Chloride 1,000 mls @ 50 mls/hr 03/02/18 18:15 03/02/18 23:44 Normal Saline - IV 03/03/18 18:14 50 mls/hr ASDIR TANISHA Administration Piperacillin Sod/Tazobactam 50 mls @ 100 mls/hr 03/03/18 02:00 03/03/18 01:02 Sod 3.375 gm/ Dextrose IVPB 03/03/18 02:29 100 mls/hr ONCE ONE Administration Levothyroxine Sodium 100 mcg 03/03/18 07:00 03/09/18 06:22 Synthroid - PO 100 mcg 0700 TANISHA Administration Loratadine 10 mg 03/03/18 10:00 03/09/18 09:18 Claritin - PO 10 mg DAILY TANISHA Administration Neomycin/Polymyxin/Dexamethasone 2 drop 03/03/18 00:00 03/09/18 11:52 Maxitrol Eye Drops - OU 2 drop Q6HPO TANISHA Administration Non-Formulary Medication 4 drop 03/03/18 10:00 Phenyleph/Mineral Oil/Petrolat AU DAILY TANISHA Sodium Chloride 1 spray 03/02/18 22:00 03/09/18 09:18 [place] Nasal [place] - NS 1 spray BID TANISHA Administration Impression 1. AGATHA 2. hypernatremia 3. PNA 4. Down Syndrome 5. developmental delay 6. hypothyroidism 7. lymphocytic thyroiditis 8. h/o mrsa infection 9. cataracts Plan - cont to monitor renal function - BUN is improving however eyewear consultant remains at 1.5 - recommend 09/21 ns - check ua - monitor vitals - will follow Dr Briones
[2018-03-09 13:44] LABS: ANISOCYTOSIS 0; MACROCYTOSIS 1+; PLATELET ESTIMATE NORMAL
--- NOTE | 2018-03-09 13:59 | PN ---
Progress Note, Physician History of Present Illness: pulmonary alert,no distress,-sob,-congestion - Current Medication List Current Medications: Active Medications Acetaminophen (Tylenol -) 650 mg PO Q4H PRN PRN Reason: PAIN LEVEL 1 - 3 Albuterol Sulfate (Ventolin 0.083% Nebulizer Soln -) 1 amp NEB Q4H PRN PRN Reason: SHORT OF BREATH/WHEEZING Heparin Sodium (Porcine) (Heparin -) 5,000 unit SQ TID TANISHA Last Admin: 03/09/18 06:15 Dose: Not Given Piperacillin Sod/Tazobactam (Sod 3.375 gm/ Dextrose) 50 mls @ 100 mls/hr IVPB Q8H-IV TANISHA; Protocol Sodium Chloride (Normal Saline -) 1,000 mls @ 50 mls/hr IV ASDIR TANISHA Stop: 03/03/18 18:14 Last Admin: 03/02/18 23:44 Dose: 50 mls/hr Piperacillin Sod/Tazobactam (Sod 3.375 gm/ Dextrose) 50 mls @ 100 mls/hr IVPB ONCE ONE Stop: 03/03/18 02:29 Last Admin: 03/03/18 01:02 Dose: 100 mls/hr Levothyroxine Sodium (Synthroid -) 100 mcg PO 0700 T[facility] Last Admin: 03/09/18 06:22 Dose: 100 mcg Loratadine (Claritin -) 10 mg PO DAILY [facility] Last Admin: 03/09/18 09:18 Dose: 10 mg Neomycin/Polymyxin/Dexamethasone (Maxitrol Eye Drops -) 2 drop OU Q6HPO TANISHA Last Admin: 03/09/18 11:52 Dose: 2 drop Non-Formulary Medication (Phenyleph/Mineral Oil/Petrolat) 4 drop AU DAILY T[facility]ISHA Sodium Chloride ([place] Nasal [place] -) 1 spray NS BID TANISHA Last Admin: 03/09/18 09:18 Dose: 1 spray - Objective Vital Signs: Vital Signs Temperature 98.3 F 03/09/18 09:02 Pulse Rate 59 L 03/09/18 09:02 Respiratory Rate 22 03/09/18 09:02 Blood Pressure 89/57 03/09/18 09:02 O2 Sat by Pulse Oximetry (%) 94 L 03/08/18 21:00 Constitutional: Yes: Calm, Thin Eyes: Yes: WNL HENT: Yes: WNL Neck: Yes: WNL Cardiovascular: Yes: Regular Rate and Rhythm, S1, S2 Respiratory: Yes: Rhonchi (few rhonchi) Gastrointestinal: Yes: Normal Bowel Sounds, Soft Extremities: Yes: WNL Edema: No Labs: CBC, BMP 03/09/18 09:15 03/09/18 09:15 Assessment/Plan (1) Hilar mass Code(s): R91.8 - OTHER NONSPECIFIC ABNORMAL FINDING OF LUNG FIELD (2) Pneumonia Code(s): J18.9 - PNEUMONIA, UNSPECIFIED ORGANISM (3) Down's syndrome Code(s): Q90.9 - DOWN SYNDROME, UNSPECIFIED (4) Mental retardation Code(s): F79 - UNSPECIFIED INTELLECTUAL DISABILITIES 5 . AGATHA Assessment/Plan antibiotics IVF O2 as needed follow diet recommendations VTE prophylaxis monitor renal function chest x-ray today DR BELL
--- NOTE | 2018-03-09 15:43 | PN ---
Physical Exam: SUBJECTIVE: Patient seen and examined OBJECTIVE: Vital Signs Period Temp Pulse Resp BP Sys/Jackson Pulse Ox Last 24 Hr 97.4 F-98.5 F 59-91 20-22 89-152/57-90 94 GENERAL: The patient is awake, alert, and fully oriented, in no acute distress. HEAD: Normal with no signs of trauma. EYES: PERRL, extraocular movements intact, sclera anicteric, conjunctiva clear. No ptosis. ENT: Ears normal, nares patent, oropharynx clear without exudates, moist mucous membranes. NECK: Trachea midline, full range of motion, supple. LUNGS: Breath sounds equal, clear to auscultation bilaterally, no wheezes, no crackles, no accessory muscle use. HEART: Regular rate and rhythm, S1, S2 without murmur, rub or gallop. ABDOMEN: Soft, nontender, nondistended, normoactive bowel sounds, no guarding, no rebound, no hepatosplenomegaly, no masses. EXTREMITIES: 2+ pulses, warm, well-perfused, no edema. NEUROLOGICAL: Cranial nerves II through XII grossly intact. Normal speech, gait not observed. PSYCH: Normal mood, normal affect. SKIN: Warm, dry, normal turgor, no rashes or lesions noted Laboratory Results - last 24 hr 03/09/18 03/09/18 09:15 09:15 WBC 9.8 D RBC 3.93 L Hgb 13.9 Hct 40.8 MCV 103.9 H MCH 35.3 H MCHC 34.0 RDW 13.1 Plt Count 232 MPV 8.4 Absolute Neuts (auto) 6.8 Neutrophils % 69.0 Neutrophils % (Manual) 63.0 D Band Neutrophils % 3.0 Lymphocytes % 18.2 D Lymphocytes % (Manual) 26.0 D Monocytes % 9.0 Monocytes % (Manual) 1 L D Eosinophils % 3.1 D Eosinophils % (Manual) 3.0 D Basophils % 0.7 Basophils % (Manual) 0.0 Myelocytes % (Man) 1 Promyelocytes % (Man) 0 Blast Cells % (Manual) 0 Nucleated RBC % 0 Metamyelocytes 1 D Hypochromia 0 Platelet Estimate Normal Polychromasia 0 Poikilocytosis 1+ Anisocytosis 0 Microcytosis 0 Macrocytosis 1+ Sodium 143 Potassium 4.0 Chloride 105 Carbon Dioxide 32 Anion Gap 6 L BUN 22 H D Creatinine 1.5 H Creat Clearance w eGFR 49.95 Random Glucose 138 H D Calcium 8.4 L Total Bilirubin 0.4 AST 9 L D ALT 16 D Alkaline Phosphatase 64 D Total Protein 6.6 Albumin 2.6 L Active Medications Generic Name Dose Route Start Last Admin Trade Name Freq PRN Reason Stop Dose Admin Acetaminophen 650 mg 03/02/18 18:13 Tylenol - PO Q4H PRN PAIN LEVEL 1 - 3 Albuterol Sulfate 1 amp 03/02/18 18:10 Ventolin 0.083% Nebulizer Soln - NEB Q4H PRN SHORT OF BREATH/WHEEZING Heparin Sodium (Porcine) 5,000 unit 03/03/18 06:00 03/09/18 15:03 Heparin - SQ Not Given TID TANISHA Piperacillin Sod/Tazobactam 50 mls @ 100 mls/hr 03/03/18 02:00 Sod 3.375 gm/ Dextrose IVPB Q8H-IV TANISHA Protocol Sodium Chloride 1,000 mls @ 50 mls/hr 03/02/18 18:15 03/02/18 23:44 Normal Saline - IV 03/03/18 18:14 50 mls/hr ASDIR TANISHA Administration Piperacillin Sod/Tazobactam 50 mls @ 100 mls/hr 03/03/18 02:00 03/03/18 01:02 Sod 3.375 gm/ Dextrose IVPB 03/03/18 02:29 100 mls/hr ONCE ONE Administration Levothyroxine Sodium 100 mcg 03/03/18 07:00 03/09/18 06:22 Synthroid - PO 100 mcg 0700 TANISHA Administration Loratadine 10 mg 03/03/18 10:00 03/09/18 09:18 Claritin - PO 10 mg DAILY TANISHA Administration Neomycin/Polymyxin/Dexamethasone 2 drop 03/03/18 00:00 03/09/18 11:52 Maxitrol Eye Drops - OU 2 drop Q6HPO TANISHA Administration Non-Formulary Medication 4 drop 03/03/18 10:00 Phenyleph/Mineral Oil/Petrolat AU DAILY TANISHA Sodium Chloride 1 spray 03/02/18 22:00 03/09/18 09:18 [place] Nasal [place] - NS 1 spray BID TANISHA Administration ASSESSMENT/PLAN:
--- NOTE | 2018-03-09 15:46 | DS ---
Physical Exam: SUBJECTIVE: Patient seen and examined at the bedside. 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 reports that patient's mental status is back to baseline. OBJECTIVE: Renal function improved since admission, will need close monitoring of his creatinine as an outpatient Increase hydration and monitor intake and output Augmentin for 7more days Vital Signs Period Temp Pulse Resp BP Sys/Jackson Pulse Ox Last 24 Hr 97.4 F-98.5 F 59-91 20-22 89-152/57-90 94 PHYSICAL EXAM GENERAL: The patient is awake, alert, in no acute distress, hx of severe MR HEAD: Normal with no signs of trauma. EYES: PERRL, extraocular movements intact, sclera anicteric, conjunctiva clear. No ptosis. ENT: moist mucous membranes. NECK: Trachea midline, full range of motion, supple. LUNGS: Breath sounds equal, clear to auscultation bilaterally, no accessory muscle use. HEART: Regular rate and rhythm, S1, S2 without murmur, rub or gallop. ABDOMEN: Soft, nontender, nondistended, normoactive bowel sounds EXTREMITIES: no edema. NEUROLOGICAL: Normal speech, gait not observed. PSYCH: Normal mood, normal affect. SKIN: Warm, dry, normal turgor, no rashes or lesions noted LABS Laboratory Results - last 24 hr 03/09/18 03/09/18 09:15 09:15 WBC 9.8 D RBC 3.93 L Hgb 13.9 Hct 40.8 MCV 103.9 H MCH 35.3 H MCHC 34.0 RDW 13.1 Plt Count 232 MPV 8.4 Absolute Neuts (auto) 6.8 Neutrophils % 69.0 Neutrophils % (Manual) 63.0 D Band Neutrophils % 3.0 Lymphocytes % 18.2 D Lymphocytes % (Manual) 26.0 D Monocytes % 9.0 Monocytes % (Manual) 1 L D Eosinophils % 3.1 D Eosinophils % (Manual) 3.0 D Basophils % 0.7 Basophils % (Manual) 0.0 Myelocytes % (Man) 1 Promyelocytes % (Man) 0 Blast Cells % (Manual) 0 Nucleated RBC % 0 Metamyelocytes 1 D Hypochromia 0 Platelet Estimate Normal Polychromasia 0 Poikilocytosis 1+ Anisocytosis 0 Microcytosis 0 Macrocytosis 1+ Sodium 143 Potassium 4.0 Chloride 105 Carbon Dioxide 32 Anion Gap 6 L BUN 22 H D Creatinine 1.5 H Creat Clearance w eGFR 49.95 Random Glucose 138 H D Calcium 8.4 L Total Bilirubin 0.4 AST 9 L D ALT 16 D Alkaline Phosphatase 64 D Total Protein 6.6 Albumin 2.6 L HOSPITAL COURSE: Date of Admission:03/02/18 Date of Discharge: 03/09/18 Discharge Summary Reason For Visit: PNEUMONIA Current Active Problems AGATHA (acute kidney injury) (Acute) Hilar mass (Acute) Pneumonia (Acute) Condition: Stable - Instructions Disposition: [facility] - Home Medications Comprehensive Discharge Medication List: Ambulatory Orders Loratadine [Claritin] 10 mg PO DAILY 01/17/12 Multivitamin [Animal Shapes Vitamins] 1 tab PO DAILY 01/17/12 [place]-3 Fatty Acids/Fish Oil [Fish Oil 1,000 mg Softgel] 1 each PO DAILY Levothyroxine [Synthroid -] 100 mcg PO DAILY 10/06/14 Sodium Chloride [Saline Nasal [place]] 30 ml NS BID 10/06/14 [place]/Polymyx B Sulf/Dexameth [Maxitrol -] 1 applic OU HS #1 tube 02/21/15 [place]/Polymyx B Sulf/Dexameth [Maxitrol Eye Drops -] 2 drop OU Q6HPO drops Bisacodyl [Dulcolax] 10 mg RC PRN 02/06/18 Diazepam 2 mg PO PRN 02/06/18 Phenyleph/Mineral Oil/Petrolat [Preparation H Ointment] 4 drop AU DAILY Ranitidine HCl 75 mg PO DAILY 02/06/18 Sennosides [Senna] 8.6 mg PO DAILY 02/06/18 Cefuroxime Axetil Suspension [Ceftin Oral Suspension -] 500 mg PO BID 2 Days # 200 ml 02/10/18 - Discharge Referral Referred to [facility] No
--- NOTE | 2018-03-09 16:03 | PN ---
Physical Exam: SUBJECTIVE: Patient seen and examined at the bedside. OBJECTIVE: Spoke to Dr. Marie Vickers [phone] who is concerned over patients AGATHA. Will not accept patient back to secondary to elevated creatinine. Wants patient creatinine back to baseline. Vital Signs Period Temp Pulse Resp BP Sys/Jackson Pulse Ox Last 24 Hr 97.4 F-98.5 F 59-91 20-22 89-152/57-90 94 GENERAL: The patient is awake, alert, in no acute distress, hx of severe MR HEAD: Normal with no signs of trauma. EYES: PERRL, extraocular movements intact, sclera anicteric, conjunctiva clear. No ptosis. ENT: moist mucous membranes. NECK: Trachea midline, full range of motion, supple. LUNGS: Breath sounds equal, clear to auscultation bilaterally, no accessory muscle use. HEART: Regular rate and rhythm, S1, S2 without murmur, rub or gallop. ABDOMEN: Soft, nontender, nondistended, normoactive bowel sounds EXTREMITIES: no edema. NEUROLOGICAL: Normal speech, gait not observed. PSYCH: Normal mood, normal affect. SKIN: Warm, dry, normal turgor, no rashes or lesions noted Laboratory Results - last 24 hr 03/09/18 03/09/18 09:15 09:15 WBC 9.8 D RBC 3.93 L Hgb 13.9 Hct 40.8 MCV 103.9 H MCH 35.3 H MCHC 34.0 RDW 13.1 Plt Count 232 MPV 8.4 Absolute Neuts (auto) 6.8 Neutrophils % 69.0 Neutrophils % (Manual) 63.0 D Band Neutrophils % 3.0 Lymphocytes % 18.2 D Lymphocytes % (Manual) 26.0 D Monocytes % 9.0 Monocytes % (Manual) 1 L D Eosinophils % 3.1 D Eosinophils % (Manual) 3.0 D Basophils % 0.7 Basophils % (Manual) 0.0 Myelocytes % (Man) 1 Promyelocytes % (Man) 0 Blast Cells % (Manual) 0 Nucleated RBC % 0 Metamyelocytes 1 D Hypochromia 0 Platelet Estimate Normal Polychromasia 0 Poikilocytosis 1+ Anisocytosis 0 Microcytosis 0 Macrocytosis 1+ Sodium 143 Potassium 4.0 Chloride 105 Carbon Dioxide 32 Anion Gap 6 L BUN 22 H D Creatinine 1.5 H Creat Clearance w eGFR 49.95 Random Glucose 138 H D Calcium 8.4 L Total Bilirubin 0.4 AST 9 L D ALT 16 D Alkaline Phosphatase 64 D Total Protein 6.6 Albumin 2.6 L Active Medications Generic Name Dose Route Start Last Admin Trade Name Freq PRN Reason Stop Dose Admin Acetaminophen 650 mg 03/02/18 18:13 Tylenol - PO Q4H PRN PAIN LEVEL 1 - 3 Albuterol Sulfate 1 amp 03/02/18 18:10 Ventolin 0.083% Nebulizer Soln - NEB Q4H PRN SHORT OF BREATH/WHEEZING Heparin Sodium (Porcine) 5,000 unit 03/03/18 06:00 03/09/18 15:03 Heparin - SQ Not Given TID TANISHA Piperacillin Sod/Tazobactam 50 mls @ 100 mls/hr 03/03/18 02:00 Sod 3.375 gm/ Dextrose IVPB Q8H-IV TANISHA Protocol Sodium Chloride 1,000 mls @ 50 mls/hr 03/02/18 18:15 03/02/18 23:44 Normal Saline - IV 03/03/18 18:14 50 mls/hr ASDIR TANISHA Administration Piperacillin Sod/Tazobactam 50 mls @ 100 mls/hr 03/03/18 02:00 03/03/18 01:02 Sod 3.375 gm/ Dextrose IVPB 03/03/18 02:29 100 mls/hr ONCE ONE Administration Levothyroxine Sodium 100 mcg 03/03/18 07:00 03/09/18 06:22 Synthroid - PO 100 mcg 0700 TANISHA Administration Loratadine 10 mg 03/03/18 10:00 03/09/18 09:18 Claritin - PO 10 mg DAILY TANISHA Administration Neomycin/Polymyxin/Dexamethasone 2 drop 03/03/18 00:00 03/09/18 11:52 Maxitrol Eye Drops - OU 2 drop Q6HPO TANISHA Administration Non-Formulary Medication 4 drop 03/03/18 10:00 Phenyleph/Mineral Oil/Petrolat AU DAILY TANISHA Sodium Chloride 1 spray 03/02/18 22:00 03/09/18 09:18 [place] Nasal [place] - NS 1 spray BID TANISHA Administration ASSESSMENT/PLAN: Patient is a 47 year old male with severe MR from [place]. He presented to the ED on 03/02/2018 with shortness of breath and found to have pneumonia. His other past medical history includes down's syndrome, pericardial effusion, systolic dysfunction, congenital heart anomaly, hypothyroidism, lymphocytic thyroiditis, and congenital orthopedic deformities. Pulm: Pneumonia, improved Leukocytosis, resolved Pneumonia likely secondary to aspiration pneumonia, speech/swallow following. On pureed diet, thickened fluids. Duonebs prn, tolerating room air. Zosyn for pneumonia completed, now on Augmentin on 03/09/18 in anticipation of discharge. Chest xray with interval focal opacity in the right mid lung measuring 4cm suggestive of airspace disease/pneumonia. Monitor respiratory status but currently tolerating room air. Pulmonary following. Renal AGATHA, improving on 09/21 NS as per renal. Creatinine 1.5, baseline 1.0. Monitor CMP in a.m. Bladder scan shows no residual. Endocrine Hypothyroid, chronic On Synthroid FEN [place] thickened fluids Monitor electrolytes Aspiration precautions Prophy Heparin Disposition: full code Visit type - Emergency Visit Emergency Visit: Yes ED Registration Date: 03/02/18 Care time: The patient presented to the Emergency Department on the above date and was hospitalized for further evaluation of their emergent condition. - New Patient This patient is new to me today: No - Critical Care Critical Care patient: No - Discharge Referral Referred to [facility] No
[2018-03-09] MEDS ORDERED: AMOX TR/POTASSIUM CLAVULANATE 250 MG/5 ML BOTTLE PO SCH (17:30)
[2018-03-09] MEDS: AMOX TR/POTASSIUM CLAVULANATE 250 MG/5 ML BOTTLE PO SCH (17:47)
[2018-03-10] MEDS: NEO/POLYMYX B SULF/DEXAMETH OPHTHALMIC 5ML BOTTLE OU SCH ×4 (01:04→18:37)
[2018-03-10] MEDS: HEPARIN NA (PORCINE) 5,000 UNITS/ML 1ML VIAL SQ SCH ×3 (06:14→22:12)
[2018-03-10] MEDS: LEVOTHYROXINE NA 100 MCG TABLET (FP) PO SCH (06:29)
[2018-03-10] MEDS: SODIUM CHLORIDE 0.45% 1,000 ML IV SCH ×2 (06:32→15:14)
[2018-03-10] MEDS ORDERED: PT OWN MED DRAWER 7, Y5N ONE (09:30)
[2018-03-10] MEDS: LORATADINE 10 MG TABLET PO SCH (09:44)
[2018-03-10] MEDS: SODIUM CHLORIDE NASAL SPRAY 44 ML BOTTLE NS SCH ×2 (09:45→22:11)
--- NOTE | 2018-03-10 11:10 | PN ---
Progress Note (short form) - Note Progress Note: PULMONARY Pt nonverbal. No fevers recorded. Vital Signs Period Temp Pulse Resp BP Sys/Jackson Pulse Ox Last 24 Hr 97.2 F-97.6 F 54-91 16-20 118-146/61-74 95 Gen: NAD at rest Heart: RRR Lung: decreased breath sounds at the bases Abd: soft, nontender Ext: no edema CBC, BMP 03/09/18 09:15 03/09/18 09:15 Active Medications Acetaminophen (Tylenol -) 650 mg PO Q4H PRN PRN Reason: PAIN LEVEL 1 - 3 Albuterol Sulfate (Ventolin 0.083% Nebulizer Soln -) 1 amp NEB Q4H PRN PRN Reason: SHORT OF BREATH/WHEEZING Heparin Sodium (Porcine) (Heparin -) 5,000 unit SQ TID TANISHA Last Admin: 03/10/18 06:14 Dose: Not Given Piperacillin Sod/Tazobactam (Sod 3.375 gm/ Dextrose) 50 mls @ 100 mls/hr IVPB Q8H-IV TANISHA; Protocol Sodium Chloride (Normal Saline -) 1,000 mls @ 50 mls/hr IV ASDIR TANISHA Stop: 03/03/18 18:14 Last Admin: 03/02/18 23:44 Dose: 50 mls/hr Piperacillin Sod/Tazobactam (Sod 3.375 gm/ Dextrose) 50 mls @ 100 mls/hr IVPB ONCE ONE Stop: 03/03/18 02:29 Last Admin: 03/03/18 01:02 Dose: 100 mls/hr Levothyroxine Sodium (Synthroid -) 100 mcg PO 0700 [facility] Last Admin: 03/10/18 06:29 Dose: 100 mcg Loratadine (Claritin -) 10 mg PO DAILY TANISHA Last Admin: 03/10/18 09:44 Dose: 10 mg Neomycin/Polymyxin/Dexamethasone (Maxitrol Eye Drops -) 2 drop OU Q6HPO TANISHA Last Admin: 03/10/18 06:29 Dose: 2 drop Non-Formulary Medication (Phenyleph/Mineral Oil/Petrolat) 4 drop AU DAILY TANISHA Sodium Chloride ([place] Nasal [place] -) 1 spray NS BID TANISHA Last Admin: 03/10/18 09:45 Dose: 1 spray A/P Pneumonia Sepsis Acute Kidney Injury Severe Mental Retardation Hypothyroidism - antibiotic course per ID - inhaled bronchodilators as needed - monitor urine output, creatinine - DVT prophylaxis
[2018-03-10] MEDS: AMOX TR/POTASSIUM CLAVULANATE 250 MG/5 ML BOTTLE PO SCH ×2 (12:00→18:36)
[2018-03-10] MEDS ORDERED: AMOX TR/POTASSIUM CLAVULANATE 250 MG/5 ML BOTTLE PO ONE (12:15)
--- NOTE | 2018-03-10 14:41 | PN ---
Progress Note, Physician History of Present Illness: Pt sen and examined at bedside. He appears comfortable. No new events. He did not have an IV so he did not get much fluids overnight. - Current Medication List Current Medications: Active Medications Acetaminophen (Tylenol -) 650 mg PO Q4H PRN PRN Reason: PAIN LEVEL 1 - 3 Albuterol Sulfate (Ventolin 0.083% Nebulizer Soln -) 1 amp NEB Q4H PRN PRN Reason: SHORT OF BREATH/WHEEZING Heparin Sodium (Porcine) (Heparin -) 5,000 unit SQ TID TANISHA Last Admin: 03/10/18 06:14 Dose: Not Given Piperacillin Sod/Tazobactam (Sod 3.375 gm/ Dextrose) 50 mls @ 100 mls/hr IVPB Q8H-IV TANISHA; Protocol Sodium Chloride (Normal Saline -) 1,000 mls @ 50 mls/hr IV ASDIR TANISHA Stop: 03/03/18 18:14 Last Admin: 03/02/18 23:44 Dose: 50 mls/hr Piperacillin Sod/Tazobactam (Sod 3.375 gm/ Dextrose) 50 mls @ 100 mls/hr IVPB ONCE ONE Stop: 03/03/18 02:29 Last Admin: 03/03/18 01:02 Dose: 100 mls/hr Levothyroxine Sodium (Synthroid -) 100 mcg PO 0700 [facility] Last Admin: 03/10/18 06:29 Dose: 100 mcg Loratadine (Claritin -) 10 mg PO DAILY [facility] Last Admin: 03/10/18 09:44 Dose: 10 mg Neomycin/Polymyxin/Dexamethasone (Maxitrol Eye Drops -) 2 drop OU Q6HPO TANISHA Last Admin: 03/10/18 12:18 Dose: 2 drop Non-Formulary Medication (Phenyleph/Mineral Oil/Petrolat) 4 drop AU DAILY [facility] Sodium Chloride ([place] Nasal [place] -) 1 spray NS BID TANISHA Last Admin: 03/10/18 09:45 Dose: 1 spray - Objective Vital Signs: Vital Signs Temperature 97.6 F 03/10/18 05:00 Pulse Rate 70 03/10/18 09:00 Respiratory Rate 17 03/10/18 09:00 Blood Pressure 125/65 03/10/18 09:00 O2 Sat by Pulse Oximetry (%) 97 03/10/18 09:00 Constitutional: Yes: Calm Cardiovascular: Yes: S1, S2 Respiratory: Yes: Wheezes Gastrointestinal: Yes: Soft Genitourinary: Yes: Incontinence Musculoskeletal: Yes: Other (multuple deformities in upper and lower limbs) Edema: No Neurological: Yes: Pre-Existing Deficit Labs: CBC, BMP 03/09/18 09:15 03/09/18 09:15 - ....Imaging Chest X-ray: Report Reviewed Problem List - Problems (1) AGATHA (acute kidney injury) Code(s): N17.9 - ACUTE KIDNEY FAILURE, UNSPECIFIED (2) Pneumonia Code(s): J18.9 - PNEUMONIA, UNSPECIFIED ORGANISM Assessment/Plan Current Medications Generic Name Dose Route Start Last Admin Trade Name Freq PRN Reason Stop Dose Admin Acetaminophen 650 mg 03/02/18 18:13 Tylenol - PO Q4H PRN PAIN LEVEL 1 - 3 Albuterol Sulfate 1 amp 03/02/18 18:10 Ventolin 0.083% Nebulizer Soln - NEB Q4H PRN SHORT OF BREATH/WHEEZING Heparin Sodium (Porcine) 5,000 unit 03/03/18 06:00 03/10/18 06:14 Heparin - SQ Not Given TID TANISHA Piperacillin Sod/Tazobactam 50 mls @ 100 mls/hr 03/03/18 02:00 Sod 3.375 gm/ Dextrose IVPB Q8H-IV TANISHA Protocol Sodium Chloride 1,000 mls @ 50 mls/hr 03/02/18 18:15 03/02/18 23:44 Normal Saline - IV 03/03/18 18:14 50 mls/hr ASDIR TANISHA Administration Piperacillin Sod/Tazobactam 50 mls @ 100 mls/hr 03/03/18 02:00 03/03/18 01:02 Sod 3.375 gm/ Dextrose IVPB 03/03/18 02:29 100 mls/hr ONCE ONE Administration Levothyroxine Sodium 100 mcg 03/03/18 07:00 03/10/18 06:29 Synthroid - PO 100 mcg 0700 TANISHA Administration Loratadine 10 mg 03/03/18 10:00 03/10/18 09:44 Claritin - PO 10 mg DAILY TANISHA Administration Neomycin/Polymyxin/Dexamethasone 2 drop 03/03/18 00:00 03/10/18 12:18 Maxitrol Eye Drops - OU 2 drop Q6HPO TANISHA Administration Non-Formulary Medication 4 drop 03/03/18 10:00 Phenyleph/Mineral Oil/Petrolat AU DAILY TANISHA Sodium Chloride 1 spray 03/02/18 22:00 03/10/18 09:45 [place] Nasal [place] - NS 1 spray BID TANISHA Administration Impression 1. AGATHA 2. hypernatremia 3. PNA 4. Down Syndrome 5. developmental delay 6. hypothyroidism 7. lymphocytic thyroiditis 8. h/o mrsa infection 9. cataracts Plan - check bmp - will continue to monitor renal function - cxr reviewed, pt was not cooperative - check ua - monitor vitals - will follow Dr Briones
--- NOTE | 2018-03-10 14:57 | PN ---
Physical Exam: SUBJECTIVE: Patient seen and examined. 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 OBJECTIVE: possible congestive changes on xray, awaiting today's labs Vital Signs Period Temp Pulse Resp BP Sys/Jackson Pulse Ox Last 24 Hr 97.2 F-97.6 F 54-91 16-20 118-146/61-74 95-97 GENERAL: The patient is awake, alert, in no acute distress, hx of severe MR - largely non verbal HEAD: Normal with no signs of trauma. EYES: PERRL, extraocular movements intact, sclera anicteric, conjunctiva clear. No ptosis. ENT: moist mucous membranes. NECK: Trachea midline, full range of motion, supple. LUNGS: no accessory muscle use, diminished lungs bilaterally HEART: Regular rate and rhythm, S1, S2 without murmur, rub or gallop. ABDOMEN: Soft, nontender, nondistended, normoactive bowel sounds EXTREMITIES: no edema. NEUROLOGICAL: Normal speech, gait not observed. PSYCH: Normal mood, normal affect. SKIN: Warm, dry, normal turgor, no rashes or lesions noted Active Medications Generic Name Dose Route Start Last Admin Trade Name Freq PRN Reason Stop Dose Admin Acetaminophen 650 mg 03/02/18 18:13 Tylenol - PO Q4H PRN PAIN LEVEL 1 - 3 Albuterol Sulfate 1 amp 03/02/18 18:10 Ventolin 0.083% Nebulizer Soln - NEB Q4H PRN SHORT OF BREATH/WHEEZING Heparin Sodium (Porcine) 5,000 unit 03/03/18 06:00 03/10/18 06:14 Heparin - SQ Not Given TID TANISHA Piperacillin Sod/Tazobactam 50 mls @ 100 mls/hr 03/03/18 02:00 Sod 3.375 gm/ Dextrose IVPB Q8H-IV TANISHA Protocol Sodium Chloride 1,000 mls @ 50 mls/hr 03/02/18 18:15 03/02/18 23:44 Normal Saline - IV 03/03/18 18:14 50 mls/hr ASDIR TANISHA Administration Piperacillin Sod/Tazobactam 50 mls @ 100 mls/hr 03/03/18 02:00 03/03/18 01:02 Sod 3.375 gm/ Dextrose IVPB 03/03/18 02:29 100 mls/hr ONCE ONE Administration Levothyroxine Sodium 100 mcg 03/03/18 07:00 03/10/18 06:29 Synthroid - PO 100 mcg 0700 TANISHA Administration Loratadine 10 mg 03/03/18 10:00 03/10/18 09:44 Claritin - PO 10 mg DAILY TANISHA Administration Neomycin/Polymyxin/Dexamethasone 2 drop 03/03/18 00:00 03/10/18 12:18 Maxitrol Eye Drops - OU 2 drop Q6HPO TANISHA Administration Non-Formulary Medication 4 drop 03/03/18 10:00 Phenyleph/Mineral Oil/Petrolat AU DAILY TANISHA Sodium Chloride 1 spray 03/02/18 22:00 03/10/18 09:45 [place] Nasal [place] - NS 1 spray BID TANISHA Administration ASSESSMENT/PLAN: Patient is a 47 year old male with severe MR from [place]. He presented to the ED on 03/02/2018 with shortness of breath and found to have pneumonia. His other past medical history includes down's syndrome, pericardial effusion, systolic dysfunction, congenital heart anomaly, hypothyroidism, lymphocytic thyroiditis, and congenital orthopedic deformities. Pulm: Pneumonia, improving Likely aspiration pneumonia Chest xray shows artifact with congestive changes, will need repeat before discharge Leukocytosis, resolved, today's labs pending Pneumonia likely secondary to aspiration pneumonia, speech/swallow following. On pureed diet, thickened fluids. Duonebs prn, tolerating room air. Zosyn for pneumonia completed, now on Augmentin 500mg BID started on 03/09/18 for 7 days in anticipation of discharge. Renal AGATHA, improving Creat 2.4>1.5 but net yet at [place] on 09/21 NS as per renal. Monitor CMP in a.m. Bladder scan shows no residual. Endocrine Hypothyroid, chronic On Synthroid FEN [place] thickened fluids Monitor electrolytes Aspiration precautions Prophy Heparin Disposition: full code Visit type - Emergency Visit Emergency Visit: Yes ED Registration Date: 03/02/18 Care time: The patient presented to the Emergency Department on the above date and was hospitalized for further evaluation of their emergent condition. - New Patient This patient is new to me today: No - Critical Care Critical Care patient: No - Discharge Referral Referred to [id number] No
[2018-03-10 16:17] LABS: ANION GAP 7 (8-16); BLOOD UREA NITROGEN 21 mg/dL (7-18); CHLORIDE 102 mmol/L (98-107); CO2 31 mmol/L (21-32); CREATININE 1.4 mg/dL (0.7-1.3); GLUCOSE,RANDOM 125 mg/dL (74-106); POTASSIUM 4.3 mmol/L (3.5-5.1); SODIUM 140 mmol/L (136-145)
[2018-03-10 20:10] LABS: BASO % 1.1 % (0-2.0); EOS % 2.9 % (0-4.5); HEMATOCRIT 40.1 % (35.4-49); HEMOGLOBIN 13.8 GM/dL (11.7-16.9); LYMPH % 18.2 % (8-40); MCH 35.2 pg (25.7-33.7); MCHC 34.3 g/dl (32.0-35.9); MEAN CELL VOLUME 102.5 fl (80-96); MEAN PLT VOLUME 8.8 fl (7.5-11.1); MONO % 10.6 % (3.8-10.2); NEUT % 67.2 % (42.8-82.8); PLATELET COUNT 242 K/MM3 (134-434); RBC 3.91 M/mm3 (4.00-5.60); RDW 13.3 % (11.9-15.9); WHITE BLOOD COUNT 10.1 K/mm3 (4.0-10.0)
[2018-03-10 20:32] LABS: ALBUMIN 2.6 g/dl (3.4-5.0); ANION GAP 7 (8-16); BILIRUBIN,TOTAL 0.2 mg/dL (0.2-1.0); BLOOD UREA NITROGEN 22 mg/dL (7-18); CALCIUM 7.8 mg/dL (8.5-10.1); CHLORIDE 106 mmol/L (98-107); CO2 29 mmol/L (21-32); CREATININE 1.5 mg/dL (0.7-1.3); GLUCOSE,RANDOM 118 mg/dL (74-106); POTASSIUM 4.2 mmol/L (3.5-5.1); SGOT/AST 10 U/L (15-37); SGPT/ALT 14 U/L (12-78); SODIUM 142 mmol/L (136-145); TOT PROT 6.4 g/dl (6.4-8.2)
[2018-03-10 20:33] LABS: ALK PHOS 72 U/L (45-117)
[2018-03-11] MEDS: NEO/POLYMYX B SULF/DEXAMETH OPHTHALMIC 5ML BOTTLE OU SCH ×2 (00:22→05:32)
[2018-03-11] MEDS: HEPARIN NA (PORCINE) 5,000 UNITS/ML 1ML VIAL SQ SCH (06:17)
[2018-03-11] MEDS: LEVOTHYROXINE NA 100 MCG TABLET (FP) PO SCH (06:17)
[2018-03-11] MEDS ORDERED: PT OWN MED DRAWER 7, Y5N ONE (10:42)
[2018-03-11] MEDS: LORATADINE 10 MG TABLET PO SCH (10:46)
[2018-03-11] MEDS: SODIUM CHLORIDE NASAL SPRAY 44 ML BOTTLE NS SCH (10:46)
[2018-03-11] MEDS: AMOX TR/POTASSIUM CLAVULANATE 250 MG/5 ML BOTTLE PO SCH (10:46)
[2018-03-11 10:58] LABS: BASO % 1.1 % (0-2.0); EOS % 2.8 % (0-4.5); HEMATOCRIT 41.4 % (35.4-49); HEMOGLOBIN 14.2 GM/dL (11.7-16.9); LYMPH % 15.7 % (8-40); MCH 35.5 pg (25.7-33.7); MCHC 34.4 g/dl (32.0-35.9); MEAN CELL VOLUME 103.5 fl (80-96); MEAN PLT VOLUME 8.7 fl (7.5-11.1); MONO % 12.9 % (3.8-10.2); NEUT % 67.5 % (42.8-82.8); PLATELET COUNT 231 K/MM3 (134-434); RDW 13.2 % (11.9-15.9); WHITE BLOOD COUNT 8.6 K/mm3 (4.0-10.0)
--- NOTE | 2018-03-11 12:22 | PN ---
Progress Note, Physician History of Present Illness: pulmonary awake,non-verbal,nad - Current Medication List Current Medications: Active Medications Acetaminophen (Tylenol -) 650 mg PO Q4H PRN PRN Reason: PAIN LEVEL 1 - 3 Albuterol Sulfate (Ventolin 0.083% Nebulizer Soln -) 1 amp NEB Q4H PRN PRN Reason: SHORT OF BREATH/WHEEZING Heparin Sodium (Porcine) (Heparin -) 5,000 unit SQ TID TANISHA Last Admin: 03/11/18 06:17 Dose: Not Given Piperacillin Sod/Tazobactam (Sod 3.375 gm/ Dextrose) 50 mls @ 100 mls/hr IVPB Q8H-IV TANISHA; Protocol Sodium Chloride (Normal Saline -) 1,000 mls @ 50 mls/hr IV ASDIR TANISHA Stop: 03/03/18 18:14 Last Admin: 03/02/18 23:44 Dose: 50 mls/hr Piperacillin Sod/Tazobactam (Sod 3.375 gm/ Dextrose) 50 mls @ 100 mls/hr IVPB ONCE ONE Stop: 03/03/18 02:29 Last Admin: 03/03/18 01:02 Dose: 100 mls/hr Levothyroxine Sodium (Synthroid -) 100 mcg PO 0700 TANISHA Last Admin: 03/11/18 06:17 Dose: 100 mcg Loratadine (Claritin -) 10 mg PO DAILY [facility] Last Admin: 03/11/18 10:46 Dose: 10 mg Neomycin/Polymyxin/Dexamethasone (Maxitrol Eye Drops -) 2 drop OU Q6HPO TANISHA Last Admin: 03/11/18 05:32 Dose: 2 drop Non-Formulary Medication (Phenyleph/Mineral Oil/Petrolat) 4 drop AU DAILY TANISHA Sodium Chloride ([place] Nasal [place] -) 1 spray NS BID TANISHA Last Admin: 03/11/18 10:46 Dose: 1 spray - Objective Vital Signs: Vital Signs Temperature 97.5 F L 03/11/18 06:00 Pulse Rate 86 03/10/18 15:16 Respiratory Rate 18 03/11/18 06:00 Blood Pressure 120/43 03/10/18 15:16 O2 Sat by Pulse Oximetry (%) 97 03/10/18 21:00 Constitutional: Yes: Calm, Thin Eyes: Yes: WNL HENT: Yes: WNL Neck: Yes: WNL Cardiovascular: Yes: Regular Rate and Rhythm, S1, S2 Respiratory: Yes: Diminished Gastrointestinal: Yes: Normal Bowel Sounds, Soft Extremities: Yes: WNL Edema: No Labs: CBC, BMP 03/11/18 10:30 Assessment/Plan (1) Hilar mass Code(s): R91.8 - OTHER NONSPECIFIC ABNORMAL FINDING OF LUNG FIELD (2) Pneumonia Code(s): J18.9 - PNEUMONIA, UNSPECIFIED ORGANISM (3) Down's syndrome Code(s): Q90.9 - DOWN SYNDROME, UNSPECIFIED (4) Mental retardation Code(s): F79 - UNSPECIFIED INTELLECTUAL DISABILITIES 5 . AGATHA Assessment/Plan antibiotics IVF O2 as needed follow diet recommendations VTE prophylaxis monitor renal function DR BELL
[2018-03-11 12:35] LABS: ALBUMIN 2.6 g/dl (3.4-5.0); ANION GAP 8 (8-16); BLOOD UREA NITROGEN 16 mg/dL (7-18); CHLORIDE 107 mmol/L (98-107); CO2 27 mmol/L (21-32); GLUCOSE,RANDOM 89 mg/dL (74-106); POTASSIUM 4.2 mmol/L (3.5-5.1); SODIUM 142 mmol/L (136-145)
[2018-03-11 12:40] LABS: ALK PHOS 74 U/L (45-117); BILIRUBIN,TOTAL 0.3 mg/dL (0.2-1.0); CREATININE 1.1 mg/dL (0.7-1.3); SGOT/AST 10 U/L (15-37); SGPT/ALT 15 U/L (12-78); TOT PROT 6.3 g/dl (6.4-8.2)
--- NOTE | 2018-03-11 14:12 | DS ---
Physical Exam: SUBJECTIVE: Patient seen and examined at the bedside. Calm, cooperative, largel non verbal. 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 OBJECTIVE: creat now stable @ baseline, cleared for discharge by renal, discussed with pulmonary who also cleared patient for discharge. Called Dr. Vickers ([phone]) x 2 to inform to inform of discharge. Awaiting call back. Spoke to [facility] Nurse Kaykay on [phone] and informed her of discharge as well. Kaykay to inform Dr. Vickers also. GEORGETTE Chapmanez aware. Vital Signs Period Temp Pulse Resp BP Sys/Jackson Pulse Ox Last 24 Hr 97.0 F-97.8 F 86 18-18 120/43 97 PHYSICAL EXAM GENERAL: The patient is awake, alert, in no acute distress, hx of severe MR - largely non verbal HEAD: Normal with no signs of trauma. EYES: PERRL, extraocular movements intact, sclera anicteric, conjunctiva clear. No ptosis. ENT: moist mucous membranes. NECK: Trachea midline, full range of motion, supple. LUNGS: no accessory muscle use, diminished lungs bilaterally, tolerating room air HEART: Regular rate and rhythm, S1, S2 without murmur, rub or gallop. ABDOMEN: Soft, nontender, nondistended, normoactive bowel sounds EXTREMITIES: no edema. NEUROLOGICAL: Normal speech, gait not observed. PSYCH: Normal mood, normal affect. SKIN: Warm, dry, normal turgor, no rashes or lesions noted LABS Laboratory Results - last 24 hr 03/10/18 03/10/18 03/10/18 15:30 19:51 19:51 WBC 10.1 H RBC 3.91 L Hgb 13.8 Hct 40.1 MCV 102.5 H MCH 35.2 H MCHC 34.3 RDW 13.3 Plt Count 242 MPV 8.8 Absolute Neuts (auto) 6.8 Neutrophils % 67.2 Lymphocytes % 18.2 Monocytes % 10.6 H Eosinophils % 2.9 Basophils % 1.1 Nucleated RBC % 0 Sodium 140 142 Potassium 4.3 4.2 Chloride 102 106 Carbon Dioxide 31 29 Anion Gap 7 L 7 L BUN 21 H 22 H Creatinine 1.4 H 1.5 H Creat Clearance w eGFR 54.09 49.95 Random Glucose 125 H 118 H Calcium 8.0 L 7.8 L Total Bilirubin 0.2 D AST 10 L ALT 14 Alkaline Phosphatase 72 Total Protein 6.4 Albumin 2.6 L 03/11/18 03/11/18 10:30 10:30 WBC 8.6 RBC 4.00 Hgb 14.2 Hct 41.4 MCV 103.5 H MCH 35.5 H MCHC 34.4 RDW 13.2 Plt Count 231 MPV 8.7 Absolute Neuts (auto) 5.8 Neutrophils % 67.5 Lymphocytes % 15.7 Monocytes % 12.9 H Eosinophils % 2.8 Basophils % 1.1 Nucleated RBC % 0 Sodium 142 Potassium 4.2 Chloride 107 Carbon Dioxide 27 Anion Gap 8 BUN 16 D Creatinine 1.1 D Creat Clearance w eGFR > 60 Random Glucose 89 D Calcium 8.0 L Total Bilirubin 0.3 D AST 10 L ALT 15 Alkaline Phosphatase 74 Total Protein 6.3 L Albumin 2.6 L HOSPITAL COURSE: Date of Admission:03/02/18 Date of Discharge: 03/11/18 ASSESSMENT/PLAN: Patient is a 47 year old male with severe MR from [place] ([facility] - affiliated with [facility] He presented to the ED on 03/02/2018 with shortness of breath and found to have pneumonia. His other past medical history includes down's syndrome, pericardial effusion, systolic dysfunction, congenital heart anomaly, hypothyroidism, lymphocytic thyroiditis, and congenital orthopedic deformities. Pulm: Pneumonia/Likely aspiration pneumonia Chest xray 03/10 shows artifact with congestive changes, patient unable to tolerate chest xray. However, clinically improved. Tolerating room air. Pneumonia likely secondary to aspiration pneumonia, speech/swallow following. On pureed diet, thickened fluids. Duonebs prn. Zosyn for pneumonia completed 7 day course. Now on Augmentin 500mg BID started on 03/09/18 for 7 days total. Aspiration precautions to continue at [facility]. Leukocytosis, resolved. Discussed with pulmonary physician, . Patient cleared for discharge. May follow outpatient. Renal AGATHA, resolved Creat 2.4>1.1 Endocrine Hypothyroid, chronic On Synthroid FEN [place] thickened fluids Monitor electrolytes Aspiration precautions Prophy Heparin Disposition: full code. Discharge today. Visit type - Emergency Visit Emergency Visit: Yes ED Registration Date: 03/02/18 Care time: The patient presented to the Emergency Department on the above date and was hospitalized for further evaluation of their emergent condition. - New Patient This patient is new to me today: No - Critical Care Critical Care patient: No - Discharge Referral Referred to [facility] Med P.C[facility] No Minutes to complete discharge: 60 Discharge Summary Reason For Visit: PNEUMONIA Current Active Problems AGATHA (acute kidney injury) (Acute) Hilar mass (Acute) Pneumonia (Acute) Condition: Improved - Instructions Diet, Activity, Other Instructions: Mr. Bolden/Facility Staff Patient was treated for aspiration pneumonia with Antibiotics intravenously for 7 day course. He will need to continue Augmentin twice daily (oral suspension) for 5 more days. Please maintain aspiration precautions with a pureed diet and nectar thickened liquids. Please have patient eat slowly and in an upright position. We recommend that patient have his labs repeated within 5 days to monitor his renal function. Continue hydration with at least 6-8 cups of water (nectar thickened, pureed diet is highly recommended). If you have any questions please call me. [facility] @ [facility] [phone] Referrals: Steve Quiroz MD [Staff Physician] - 1 Week (follow up chest xray) Bruna Briones MD [Staff Physician] - 1 Week Disposition: RESIDENTIAL FACILITY - Home Medications Comprehensive Discharge Medication List: Ambulatory Orders Loratadine [Claritin] 10 mg PO DAILY 01/17/12 Multivitamin [Animal Shapes Vitamins] 1 tab PO DAILY 01/17/12 [place]-3 Fatty Acids/Fish Oil [Fish Oil 1,000 mg Softgel] 1 each PO DAILY Levothyroxine [Synthroid -] 100 mcg PO DAILY 10/06/14 Sodium Chloride [Saline Nasal [place]] 30 ml NS BID 10/06/14 [place]/Polymyx B Sulf/Dexameth [Maxitrol -] 1 applic OU HS #1 tube 02/21/15 [place]/Polymyx B Sulf/Dexameth [Maxitrol Eye Drops -] 2 drop OU Q6HPO drops Bisacodyl [Dulcolax] 10 mg RC PRN 02/06/18 Diazepam 2 mg PO PRN 02/06/18 Phenyleph/Mineral Oil/Petrolat [Preparation H Ointment] 4 drop AU DAILY Ranitidine HCl 75 mg PO DAILY 02/06/18 Sennosides [Senna] 8.6 mg PO DAILY 02/06/18 Cefuroxime Axetil Suspension [Ceftin Oral Suspension -] 500 mg PO BID 2 Days # 200 ml 02/10/18 This patient is new to me today: No Emergency Visit: Yes ED Registration Date: 03/02/18 Care time: The patient presented to the Emergency Department on the above date and was hospitalized for further evaluation of their emergent condition. Critical Care patient: No - Discharge Referral Referred to [facility] Med P.C.: No
--- NOTE | 2018-03-11 14:29 | PN ---
Progress Note, Physician History of Present Illness: Pt seen and examined at bedside. He appears comfortable. - Current Medication List Current Medications: Active Medications Acetaminophen (Tylenol -) 650 mg PO Q4H PRN PRN Reason: PAIN LEVEL 1 - 3 Albuterol Sulfate (Ventolin 0.083% Nebulizer Soln -) 1 amp NEB Q4H PRN PRN Reason: SHORT OF BREATH/WHEEZING Heparin Sodium (Porcine) (Heparin -) 5,000 unit SQ TID TANISHA Last Admin: 03/11/18 06:17 Dose: Not Given Piperacillin Sod/Tazobactam (Sod 3.375 gm/ Dextrose) 50 mls @ 100 mls/hr IVPB Q8H-IV TANISHA; Protocol Sodium Chloride (Normal Saline -) 1,000 mls @ 50 mls/hr IV ASDIR TANISHA Stop: 03/03/18 18:14 Last Admin: 03/02/18 23:44 Dose: 50 mls/hr Piperacillin Sod/Tazobactam (Sod 3.375 gm/ Dextrose) 50 mls @ 100 mls/hr IVPB ONCE ONE Stop: 03/03/18 02:29 Last Admin: 03/03/18 01:02 Dose: 100 mls/hr Levothyroxine Sodium (Synthroid -) 100 mcg PO 0700 TANISHA Last Admin: 03/11/18 06:17 Dose: 100 mcg Loratadine (Claritin -) 10 mg PO DAILY [facility] Last Admin: 03/11/18 10:46 Dose: 10 mg Neomycin/Polymyxin/Dexamethasone (Maxitrol Eye Drops -) 2 drop OU Q6HPO TANISHA Last Admin: 03/11/18 05:32 Dose: 2 drop Non-Formulary Medication (Phenyleph/Mineral Oil/Petrolat) 4 drop AU DAILY [facility] Sodium Chloride ([place] Nasal [place] -) 1 spray NS BID TANISHA Last Admin: 03/11/18 10:46 Dose: 1 spray - Objective Vital Signs: Vital Signs Temperature 97.5 F L 03/11/18 06:00 Pulse Rate 86 03/10/18 15:16 Respiratory Rate 18 03/11/18 06:00 Blood Pressure 120/43 03/10/18 15:16 O2 Sat by Pulse Oximetry (%) 97 03/10/18 21:00 Constitutional: Yes: Calm Cardiovascular: Yes: S1, S2 Respiratory: Yes: CTA Bilaterally Gastrointestinal: Yes: Soft Genitourinary: Yes: Incontinence Edema: No Neurological: Yes: Pre-Existing Deficit Labs: CBC, BMP 03/11/18 10:30 03/11/18 10:30 Problem List - Problems (1) AGATHA (acute kidney injury) Code(s): N17.9 - ACUTE KIDNEY FAILURE, UNSPECIFIED (2) Pneumonia Code(s): J18.9 - PNEUMONIA, UNSPECIFIED ORGANISM Assessment/Plan Current Medications Generic Name Dose Route Start Last Admin Trade Name Freq PRN Reason Stop Dose Admin Acetaminophen 650 mg 03/02/18 18:13 Tylenol - PO Q4H PRN PAIN LEVEL 1 - 3 Albuterol Sulfate 1 amp 03/02/18 18:10 Ventolin 0.083% Nebulizer Soln - NEB Q4H PRN SHORT OF BREATH/WHEEZING Heparin Sodium (Porcine) 5,000 unit 03/03/18 06:00 03/11/18 06:17 Heparin - SQ Not Given TID TANISHA Piperacillin Sod/Tazobactam 50 mls @ 100 mls/hr 03/03/18 02:00 Sod 3.375 gm/ Dextrose IVPB Q8H-IV TANISHA Protocol Sodium Chloride 1,000 mls @ 50 mls/hr 03/02/18 18:15 03/02/18 23:44 Normal Saline - IV 03/03/18 18:14 50 mls/hr ASDIR TANISHA Administration Piperacillin Sod/Tazobactam 50 mls @ 100 mls/hr 03/03/18 02:00 03/03/18 01:02 Sod 3.375 gm/ Dextrose IVPB 03/03/18 02:29 100 mls/hr ONCE ONE Administration Levothyroxine Sodium 100 mcg 03/03/18 07:00 03/11/18 06:17 Synthroid - PO 100 mcg 0700 TANISHA Administration Loratadine 10 mg 03/03/18 10:00 03/11/18 10:46 Claritin - PO 10 mg DAILY TANISHA Administration Neomycin/Polymyxin/Dexamethasone 2 drop 03/03/18 00:00 03/11/18 05:32 Maxitrol Eye Drops - OU 2 drop Q6HPO TANISHA Administration Non-Formulary Medication 4 drop 03/03/18 10:00 Phenyleph/Mineral Oil/Petrolat AU DAILY TANISHA Sodium Chloride 1 spray 03/02/18 22:00 03/11/18 10:46 [place] Nasal [place] - NS 1 spray BID TANISHA Administration Impression 1. AGATHA 2. hypernatremia 3. PNA 4. Down Syndrome 5. developmental delay 6. hypothyroidism 7. lymphocytic thyroiditis 8. h/o mrsa infection 9. cataracts Plan - renal function has stabilized - outpt follow up - discussed with medical team - can stop fluids - will follow Dr Briones
[2018-03-11 14:36] LABS: ACANTHOCYTES 0; ANISOCYTOSIS 0; HELMET CELLS 0; HOWELL-JOLLY BODIES 0; MACROCYTOSIS 0; OVALOCYTE 0; PLATELET ESTIMATE NORMAL; ROULEAU 0; SICKELED CELLS 0; TARGET CELLS 0; TEAR DROP CELLS 0; TOXIC GRANULATION 0
[2018-03-11 15:02] VITALS: BP 103/74; PULSE 77; TEMP 97
[2018-03-11] MEDS ORDERED: AMOX TR/POTASSIUM CLAVULANATE 250 MG/5 ML BOTTLE PO SCH (17:30)
== END 2018-03-11 17:52 | DRG 178 ==
LOC: JER 12:54 → JERBED 17:58 → J5S 20:29
PROVIDERS: ADMIT Internal Medicine; ATTEND Nurse Practitioner Family
DX: J69.0 Pneumonitis due to inhalation of food and vomit (principal); F72 Severe intellectual disabilities; I31.3 Pericardial effusion (noninflammatory); Q68.1 Congenital deformity of finger(s) and hand; E87.0 Hyperosmolality and hypernatremia; N17.9 Acute kidney failure, unspecified; Q90.9 Down syndrome, unspecified; Q24.9 Congenital malformation of heart, unspecified; E03.9 Hypothyroidism, unspecified; E06.3 Autoimmune thyroiditis; Q75.8 Other specified congenital malformations of skull and face bones; H91.93 Unspecified hearing loss, bilateral; D72.829 Elevated white blood cell count, unspecified; R91.8 Other nonspecific abnormal finding of lung field; H26.9 Unspecified cataract; Q74.0 Other congenital malformations of upper limb(s), including shoulder girdle; E86.0 Dehydration; Z89.112 Acquired absence of left hand
CPT/HCPCS: 36415; 71045-TC-FY; 76775-TC; 76856-TC; 80048; 80053; 81003; 81015; 82570; 83605; 83735; 84100; 84300; 85025; 85027; 87040; 87899; 99283-25; J1644; J7030

== ENCOUNTER 2019-01-08 23:04 | Inpatient (IN) | payer OTHER ==
[2019-01-08] MEDS ORDERED: ALBUTEROL SO4 2.5/IPRATROPIUM 0.5 INH SOL 3 ML VIAL.NEB. NEB ONE ×2 (23:09→23:30)
[2019-01-08] MEDS ORDERED: DEXAMETHASONE SOD PHOSPHATE 10 MG/1 ML VIAL IVPUSH ONE (23:16)
[2019-01-08 23:36] LABS: BASO % 0.6 % (0-2.0); EOS % 0.1 % (0-4.5); HEMATOCRIT 40.7 % (35.4-49); HEMOGLOBIN 13.9 GM/dL (11.7-16.9); MCH 35.5 pg (25.7-33.7); MCHC 34.2 g/dl (32.0-35.9); MEAN CELL VOLUME 103.7 fl (80-96); MEAN PLT VOLUME 9.4 fl (7.5-11.1); MONO % 9.3 % (3.8-10.2); PLATELET COUNT 193 K/MM3 (134-434); RBC 3.92 M/mm3 (4.00-5.60); RDW 13.2 % (11.9-15.9); WHITE BLOOD COUNT 10.9 K/mm3 (4.0-10.0)
[2019-01-08 23:47] LABS: INR 1.1 (0.83-1.09)
[2019-01-08] MEDS ORDERED: SODIUM CHLORIDE 0.9% 500 ML INFUS.BAG IV ONE (23:47)
[2019-01-08] MEDS ORDERED: DEXAMETHASONE SOD PHOSPHATE 10 MG/1 ML VIAL ONE (23:55)
--- NOTE | 2019-01-09 00:03 | PDOC ---
Documentation entered by Cynthia Juárez SCRIBE, acting as scribe for Jazmin Moody MD. Jazmin Moody MD: This documentation has been prepared by the Franck dunham Daisy, SCRIBE, under my direction and personally reviewed by me in its entirety. I confirm that the documentation accurately reflects all work, treatment, procedures, and medical decision making performed by me. Attending Attestation - Resident Resident Name: Dean Lau - ED Attending Attestation I have performed the following: I have examined & evaluated the patient, The case was reviewed & discussed with the resident, I agree w/resident's findings & plan - HPI HPI: 01/08/19 23:28 The patient is a 48 YOM with a PMH of asthma, MR, and hypothyroidism who presents to the ER with difficulty breathing. As per health aid at bedside, patient's temperature was 98.5 at 8PM today. Allergies: azithromycin, sulfamethoxazole, trimethoprim - Physicial Exam PE: 01/08/19 23:30 Agree with resident exam. Pt has coarse BS and decreased BS at bases as well as patchy wheezing. Pt has no fever and no rashes. Pt has no abd pain and no other complaints. Pt will be treated for pneumonia, given that he has coarse BS and coughing up sputum. 01/09/19 02:44 Pt remains stable; he will be admitted. - Medical Decision Making 01/09/19 02:47 Pt admitted to med/surg, as he is hypoxic on RA. 01/09/19 02:47 WBC elevated for patient, relative to his past WBCs flu negative chem normal. EKG unchanged from previous LBBB; tachycardic. 01/09/19 02:49 Pt received fluid; steroids; abx; duoneb.
--- NOTE | 2019-01-09 00:07 | PDOC ---
History of Present Illness - General Chief Complaint: Asthma Stated Complaint: WHEEZING Time Seen by Provider: 01/08/19 23:14 History Source: Patient - History of Present Illness Initial Comments: 01/09/19 00:10 48-year-old male from [facility], with a significant past medical history of severe mental retardation, down syndrome, pericardial effusion, systolic dysfunction, congenital heart anomaly, hypothyroidism who was brought by nursing care partner to the ED According to aide, patient has been wheezing all day despite 1 treatment of albuterol nebulizer. Patient is full code. Allergies: Azithromycin Past History - Past Medical History Allergies/Adverse Reactions: Allergies Allergy/AdvReac Type Severity Reaction Status Date / Time sulfamethoxazole Allergy Intermediate Hives Verified 01/08/19 23:05 [From Bactrim] trimethoprim [From Bactrim] Allergy Intermediate Hives Verified 01/08/19 23:05 azithromycin [From Zithromax] Allergy Verified 01/08/19 23:05 Home Medications: Ambulatory Orders Loratadine [Claritin] 10 mg PO DAILY 01/17/12 Multivitamin [Animal Shapes Vitamins] 1 tab PO DAILY 01/17/12 [place]-3 Fatty Acids/Fish Oil [Fish Oil 1,000 mg Softgel] 1 each PO DAILY Levothyroxine [Synthroid -] 100 mcg PO DAILY 10/06/14 Sodium Chloride [Saline Nasal [place]] 30 ml NS BID 10/06/14 Bisacodyl [Dulcolax] 10 mg RC PRN 02/06/18 Diazepam 2 mg PO PRN 02/06/18 Phenyleph/Mineral Oil/Petrolat [Preparation H Ointment] 4 drop AU DAILY Ranitidine HCl 75 mg PO DAILY 02/06/18 Sennosides [Senna] 8.6 mg PO DAILY 02/06/18 Clindamycin [Cleocin -] 300 mg PO TID #21 capsule 05/18/18 Lactobacillus Acidophilus [Bacid -] 1 tab PO DAILY #7 tab 05/18/18 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) COPD: No DVT: No Thyroid Disease: Yes (THYROIDITIS) - Immunization History Immunization Up to Date: Yes - Suicide/Smoking/Psychosocial Hx Smoking Status: No Smoking History: Never smoked Have you smoked in the past 12 months: No Number of Cigarettes Smoked Daily: 0 Hx Alcohol Use: No Drug/Substance Use Hx: No Substance Use Type: None Hx Substance Use Treatment: No Review of Systems - Review of Systems Able to Perform ROS?: No (non-verbal, profound MR) *Physical Exam - Vital Signs Last Vital Signs Temp Pulse Resp BP Pulse Ox 124 H 32 H 144/92 81 L 01/08/19 23:06 01/08/19 23:06 01/08/19 23:06 01/08/19 23:06 - Physical Exam General Appearance: Yes: Mild Distress HEENT: positive: Other (b/l conjunctivitis, nasal congestion) Respiratory/Chest: positive: Wheezing (diffuse). negative: Chest Tender Cardiovascular: positive: Regular Rhythm, S1, S2, Tachycardia Musculoskeletal: positive: Normal Inspection. negative: CVA Tenderness Extremity: positive: Normal Capillary Refill, Normal Inspection Integumentary: positive: Normal Color, Dry, Cyanotic Neurologic: positive: Other (At baseline as per Aide) ED Treatment Course - LABORATORY CBC & Chemistry Diagram: 01/08/19 23:30 01/08/19 23:30 - ADDITIONAL ORDERS Additional order review: Laboratory Results 01/08/19 01/08/19 23:30 23:30 PT with INR 13.00 INR 1.10 H Lactic Acid 1.9 01/08/19 23:30 RBC 3.92 L MCV 103.7 H MCHC 34.2 RDW 13.2 MPV 9.4 D Neutrophils % 80.0 D Lymphocytes % 10.0 D Monocytes % 9.3 Eosinophils % 0.1 D Basophils % 0.6 Medical Decision Making - Medical Decision Making 01/09/19 00:34 Asthma exacerbation vs influenza Patient afebrile, wheezing, this is likely asthma exacerbation, giving duonebs and decadron. 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 Patient still wheezing, 2 additional duoneb. Patient admitted to med surg for asthma exacerbation. *DC/Admit/Observation/Transfer Diagnosis at time of Disposition: Asthma exacerbation - Discharge Dispostion Decision to Admit order: Yes - Referrals - Patient Instructions - Post Discharge Activity
[2019-01-09 00:29] LABS: ALBUMIN 2.7 g/dl (3.4-5.0); ALK PHOS 101 U/L (45-117); ANION GAP 6 MMOL/L (8-16); BILIRUBIN,TOTAL 0.5 mg/dL (0.2-1); BLOOD UREA NITROGEN 16 mg/dL (7-18); CALCIUM 8.2 mg/dL (8.5-10.1); CHLORIDE 109 mmol/L (98-107); CO2 27 mmol/L (21-32); CREATININE 1.1 mg/dL (0.55-1.3); GLUCOSE,RANDOM 124 mg/dL (74-106); SGOT/AST 30 U/L (15-37); SGPT/ALT 24 U/L (13-61); SODIUM 142 mmol/L (136-145); TOT PROT 7.3 g/dl (6.4-8.2)
[2019-01-09] MEDS ORDERED: ALBUTEROL SO4 2.5/IPRATROPIUM 0.5 INH SOL 3 ML VIAL.NEB. NEB ONE ×2 (00:55→00:58)
--- NOTE | 2019-01-09 01:08 | PN ---
Teaching Attending Note Name of Resident: Dary Markham ATTENDING PHYSICIAN STATEMENT I saw and evaluated the patient. I reviewed the resident's note and discussed the case with the resident. I agree with the resident's findings and plan as documented. SUBJECTIVE: Seen and examined; please refer to resident note for further historical information. Briefly, this is a 48 y/o male resident of [facility] presenting to the ER with a CC of wheezing x1 day; he cannot provide any history due to his underlying mental condition though he is keenly responsive and interactive. When we met he was not requiring O2 and saturating in the low 90s. He is noted to have a mild unproductive cough. He is hemodynamically stable and afebrile. ABG pending. 10 sys ROS couldnt be completed due to underlying mental condition PMH, PSH, FH, SH reviewed Home Medications Medication Instructions Recorded Loratadine [Claritin] 10 mg PO DAILY 01/17/12 Multivitamin [Animal Shapes 1 tab PO DAILY 01/17/12 Vitamins] [place]-3 Fatty Acids/Fish Oil [Fish 1 each PO DAILY 01/17/12 Oil 1,000 mg Softgel] Levothyroxine [Synthroid -] 75 mcg PO DAILY 10/06/14 Sodium Chloride [Saline Nasal 30 ml NS BID 10/06/14 [place]] Bisacodyl [Dulcolax] 10 mg RC PRN 02/06/18 Diazepam 2 mg PO PRN 02/06/18 Phenyleph/Mineral Oil/Petrolat 4 drop AU DAILY 02/06/18 [Preparation H Ointment] Ranitidine HCl 75 mg PO DAILY 02/06/18 Sennosides [Senna] 8.6 mg PO DAILY 02/06/18 Clindamycin [Cleocin -] 300 mg PO TID #21 capsule 05/18/18 Lactobacillus Acidophilus [Bacid -] 1 tab PO DAILY #7 tab 05/18/18 Verifying final med list; aid will bring updated list. OBJECTIVE: VS, labs, imaging reviewed NAD, Awake and Alert, resting comfortably in bed sitting up as per his normal NC AT EOMI PERRLA RRR s1/2 no mgr Lungs with upper airway sounds, w/ sym exp NT ND +BS CT pending CXR with no caren infiltrates but known enlarged hilum which could especially obscure a R-sided process ASSESSMENT AND PLAN: 1) Acute Hypoxic Respiratory Failure -PRN O2; followup ABG. He is going on and off O2. -Likely 2/2 aspiration type process; CXR didn't show caren infiltrative process so we will look for any occult process on CT chest -Would hold off on steroids, asthma treatment. He has been seen by pulmonary medicine in the past and never carried a dx of asthma; at 48 years of age would be atypical for him to develop asthmatic process. Relatively benign lung exam albeit with poor effort. Nonsmoker so less likely COPD, no chemical exposures, etc. etc. -IV clindamycin, NPO, swallow study. Consider pulmonary consult in the AM. Followup imaging. Check ESR/CRP. Check viral PCR and influenza. Pulmonary toileting and aspiration precautions. 2) Severe MR -Veryify and continue home meds; aspiration precautions. Confirm care plan with Alex in AM. 3) Hypothyroidism -Continue LT4 Full Code
[2019-01-09] MEDS ORDERED: ALBUTEROL SO4 0.083% IH SOL 2.5 MG/3 ML VIAL.NEB. NEB PRN (01:30)
--- NOTE | 2019-01-09 01:42 | HP ---
CHIEF COMPLAINT: asthma exacerbation PCP: [facility] HISTORY OF PRESENT ILLNESS: 48 y/o M from [facility] with hx severe MR, Down's, pericardial effusion, systolic dysfunction, congenital cardiac anomaly, hypothyroidism, hx MRSA infections, who presents to the ED with severe wheezing that started this evening. As per aid at bedside, pt has been wheezing since 8pm. He was given approx 1.5 neb tx by his aid without relief. Aid states that she became worried about him, as he was receiving the neb so frequently but it was not working. She subsequently called the nurse media reconciliation specialist who recommended she bring the pt to the ED for further evaluation. On arrival to the ED, pt was sat 81%, which has since improved to 92% after a duoneb, and 10mg of dexamethasone. As per aid, he is at baseline, without fever , or changes in urinary or bowel function. ER course was notable for: (1) duoneb (2) dex 10mg x 1 (3) NS 1L Recent Travel: denies PAST MEDICAL HISTORY: as above PAST SURGICAL HISTORY: unable to obtain as above. not seen in chart Social History: lives at [facility] [place] Smoking: denies Alcohol: denies Drugs: denies Family History: unknown Allergies sulfamethoxazole [From Bactrim] Allergy (Intermediate, Verified 01/08/19 23:05) Hives trimethoprim [From Bactrim] Allergy (Intermediate, Verified 01/08/19 23:05) Hives azithromycin [From Zithromax] Allergy (Verified 01/08/19 23:05) HOME MEDICATIONS: Home Medications Medication Instructions Recorded Loratadine [Claritin] 10 mg PO DAILY 01/17/12 Multivitamin [Animal Shapes 1 tab PO DAILY 01/17/12 Vitamins] [place]-3 Fatty Acids/Fish Oil [Fish 1 each PO DAILY 01/17/12 Oil 1,000 mg Softgel] Levothyroxine [Synthroid -] 75 mcg PO DAILY 10/06/14 Sodium Chloride [Saline Nasal 30 ml NS BID 10/06/14 [place]] Bisacodyl [Dulcolax] 10 mg RC PRN 02/06/18 Diazepam 2 mg PO PRN 02/06/18 Phenyleph/Mineral Oil/Petrolat 4 drop AU DAILY 02/06/18 [Preparation H Ointment] Ranitidine HCl 75 mg PO DAILY 02/06/18 Sennosides [Senna] 8.6 mg PO DAILY 02/06/18 Clindamycin [Cleocin -] 300 mg PO TID #21 capsule 05/18/18 Lactobacillus Acidophilus [Bacid -] 1 tab PO DAILY #7 tab 05/18/18 meds on the fan list have been updated those with question rosana are not on the list aid states she will bring papers REVIEW OF SYSTEMS CONSTITUTIONAL: Absent: fever, chills, diaphoresis, generalized weakness, malaise, loss of appetite, weight change HEENT: Absent: rhinorrhea, nasal congestion, throat pain, throat swelling, difficulty swallowing, mouth swelling, ear pain, eye pain, visual changes CARDIOVASCULAR: Absent: chest pain, syncope, palpitations, irregular heart rate, lightheadedness , peripheral edema RESPIRATORY: +wheezing Absent: cough, shortness of breath, dyspnea with exertion, orthopnea, wheezing, stridor, hemoptysis GASTROINTESTINAL: Absent: abdominal pain, abdominal distension, nausea, vomiting, diarrhea, constipation, melena, hematochezia GENITOURINARY: Absent: dysuria, frequency, urgency, hesitancy, hematuria, flank pain, genital pain MUSCULOSKELETAL: Absent: myalgia, arthralgia, joint swelling, back pain, neck pain SKIN: Absent: rash, itching, pallor HEMATOLOGIC/IMMUNOLOGIC: Absent: easy bleeding, easy bruising, lymphadenopathy, frequent infections ENDOCRINE: Absent: unexplained weight gain, unexplained weight loss, heat intolerance, cold intolerance NEUROLOGIC: Absent: headache, focal weakness or paresthesias, dizziness, unsteady gait, seizure, mental status changes, bladder or bowel incontinence PSYCHIATRIC: Absent: anxiety, depression, suicidal or homicidal ideation, hallucinations. PHYSICAL EXAMINATION Vital Signs - 24 hr 01/08/19 23:06 Pulse Rate 124 H Respiratory 32 H Rate Blood Pressure 144/92 O2 Sat by Pulse 81 L Oximetry (%) GENERAL: sitting up comfortably with aid on bed HEAD: +microcephaly EYES: Pupils equal, round and reactive to light, extraocular movements intact, sclera anicteric, conjunctiva clear EARS, NOSE, THROAT: Ears normal, nares patent, oropharynx clear NECK: Normal range of motion, supple LUNGS: + wheezing b/l HEART: Regular rate and rhythm, normal S1 and S2 without murmur, rub or gallop. ABDOMEN: Soft, nontender, not distended, normoactive bowel sounds, no guarding, no rebound, no masses. LOWER EXTREMITIES: 2+ pt pulses, warm, well-perfused. No calf tenderness. No peripheral edema. NEUROLOGICAL: would not comply with neuro exam PSYCHIATRIC: Cooperative and calm. SKIN: Warm, dry Laboratory Results - last 24 hr 01/08/19 01/08/19 01/08/19 23:30 23:30 23:30 WBC 10.9 H RBC 3.92 L Hgb 13.9 Hct 40.7 MCV 103.7 H MCH 35.5 H MCHC 34.2 RDW 13.2 Plt Count 193 MPV 9.4 D Absolute Neuts (auto) 8.7 H Neutrophils % 80.0 D Lymphocytes % 10.0 D Monocytes % 9.3 Eosinophils % 0.1 D Basophils % 0.6 Nucleated RBC % 0 PT with INR 13.00 INR 1.10 H Sodium 142 Potassium 4.0 Chloride 109 H Carbon Dioxide 27 Anion Gap 6 L BUN 16 Creatinine 1.1 Creat Clearance w eGFR 71.15 Random Glucose 124 H Lactic Acid Calcium 8.2 L Total Bilirubin 0.5 AST 30 ALT 24 Alkaline Phosphatase 101 Total Protein 7.3 Albumin 2.7 L Influenza A (Rapid) Influenza B (Rapid) Influenza testing 01/09/19 00:23 Influenza A (Rapid) Negative Influenza B (Rapid) Negative EKG: with WPW, qtc ~514ms. unchanged from previous CXR prelim: cardiomegaly could indicated a pericardial effusion (has hx of). mild pulm edema without focal consolidation. there may be trace L pleural effusion. await official read. Chest ct w/o contrast: ordered ASSESSMENT/PLAN: 48 y/o M from [facility] [place] with hx severe MR, Down's, pericardial effusion, systolic dysfunction, congenital cardiac anomaly, hypothyroidism, hx MRSA infections, who presents to the ED with severe wheezing that started this evening. #Acute hypoxic RF likely 2/2 aspiration pneumonitis -less likely PNA as without fever, white count, sx, or infiltrate on imaging -will tx with duonebs RQID, nebs q4h PRN, clindamycin 600 q8h -improved 02 sat 80's > low 90's. continue to monitor. placed on NRB on floor d/ t desat -f/u CT chest w/o contrast to determine if chronic lung dz, infiltrates, congestion, etc. -f/u resp virus PCR -pulm consult: Dr. Quiroz. has seen in past #macrocytic anemia -f/u b12, folate -also f/u iron studies #hypothyroidism -c/w synthroid #hx MRSA infections -isolation precautions #constipation -c/w dulcolax #F/E/N no IVF required at this time continue to follow lytes NPO until seen by s/s to prevent aspiration #PPX DVT: Hep 5k SQ BID d/t pt's low wt #Dispo admit to med-surg Visit type - Emergency Visit Emergency Visit: Yes ED Registration Date: 01/09/19 Care time: The patient presented to the Emergency Department on the above date and was hospitalized for further evaluation of their emergent condition. - New Patient This patient is new to me today: Yes Date on this admission: 01/09/19 - Critical Care Critical Care patient: No
[2019-01-09] MEDS ORDERED: BISACODYL 10 MG SUPP.RECT RC PRN (01:45)
[2019-01-09] MEDS ORDERED: methylPREDNISolone NA SUCC 40 MG/1 ML VIAL IVPUSH SCH ×2 (02:00→10:00)
[2019-01-09] MEDS ORDERED: methylPREDNISolone NA SUCC 40 MG/1 ML VIAL ONE (02:05)
[2019-01-09 02:33] LABS: ARTERIAL BLD GAS O2 SATURATION 53.3 % (95-98); ARTERIAL BLOOD GAS BASE EXCESS 3.2 meq/l (-2-2); ARTERIAL BLOOD GAS PO2 30.9 mmHg (80-105)
[2019-01-09 04:01] LABS: ARTERIAL BLD GAS O2 SATURATION 99.4 % (95-98); ARTERIAL BLOOD GAS BASE EXCESS 1.9 meq/l (-2-2); ARTERIAL BLOOD GAS PO2 161 mmHg (80-105); ARTERIAL BLOOD GAS pH 7.42 (7.35-7.45)
[2019-01-09 04:09] LABS: PREALBUMIN 7.9 mg/dl (20-40)
[2019-01-09] MEDS: CLINDAMYCIN 600MG PREMIX IVPB 600 MG/50 ML BAG IVPB SCH ×2 (05:41→09:28)
[2019-01-09] MEDS: LEVOTHYROXINE NA 75 MCG TABLET (FP) PO SCH (06:04)
[2019-01-09 07:19] LABS: BASO % 0.1 % (0-2.0); HEMATOCRIT 38.2 % (35.4-49); LYMPH % 3.7 % (8-40); MCH 35.2 pg (25.7-33.7); MCHC 34.1 g/dl (32.0-35.9); MEAN CELL VOLUME 103.2 fl (80-96); MEAN PLT VOLUME 9.5 fl (7.5-11.1); NEUT % 95.2 % (42.8-82.8); PLATELET COUNT 187 K/MM3 (134-434); RDW 12.9 % (11.9-15.9)
[2019-01-09] MEDS: ALBUTEROL SO4 2.5/IPRATROPIUM 0.5 INH SOL 3 ML VIAL.NEB. NEB SCH ×4 (07:50→20:04)
[2019-01-09 07:56] LABS: ANION GAP 7 MMOL/L (8-16); BLOOD UREA NITROGEN 15 mg/dL (7-18); CALCIUM 8.3 mg/dL (8.5-10.1); CHLORIDE 108 mmol/L (98-107); CO2 30 mmol/L (21-32); GLUCOSE,RANDOM 220 mg/dL (74-106); MAGNESIUM 2.5 mg/dL (1.8-2.4); PHOSPHOROUS 3.3 mg/dL (2.5-4.9); SODIUM 145 mmol/L (136-145)
[2019-01-09] MEDS: HEPARIN NA (PORCINE) 5,000 UNITS/ML 1ML VIAL SQ SCH ×2 (09:51→21:36)
--- NOTE | 2019-01-09 09:51 | EKG ---
Test Reason : Blood Pressure : / mmHG Vent. Rate : 108 BPM Atrial Rate : 108 BPM P-R Int : 092 ms QRS Dur : 150 ms QT Int : 384 ms P-R-T Axes : 060 -44 093 degrees QTc Int : 514 ms POOR DATA QUALITY, INTERPRETATION MAY BE ADVERSELY AFFECTED SINUS TACHYCARDIA LEFT AXIS DEVIATION RIGHT BUNDLE BRANCH BLOCK LEFT VENTRICULAR HYPERTROPHY WITH REPOLARIZATION ABNORMALITY INFERIOR INFARCT, AGE UNDETERMINED ABNORMAL ECG WHEN COMPARED WITH ECG OF 12-MAY-2018 14:47, NO SIGNIFICANT CHANGE IS FOUND Confirmed by JOSÉ MIGUEL MOSQUEDA MD ([id number]) on 01/09/2019 9:51:27 AM Referred By: Confirmed By:JOSÉ MIGUEL MOSQUEDA MD
[2019-01-09 10:43] LABS: ANISOCYTOSIS 2+; MACROCYTOSIS 0; PLATELET ESTIMATE NORMAL
[2019-01-09] MEDS: LORATADINE 10 MG TABLET PO SCH (10:59)
--- NOTE | 2019-01-09 11:33 | CON.PULM ---
Consult Consult Specialty:: PULMONARY Referred by:: Dr Ozuna Reason for Consultation:: shortness of breath - History of Present Illness Chief Complaint: shortness of breath History of Present Illness: 48yo male with h/o Down Syndrome, mental retardation, LV systolic dysfunction, hypothyroidism who was admitted with increasing shortness of breath and wheezing. Pt nonverbal, unable to provide further history at this time. Noted to be wheezing without significant relief from nebulizer treatments. Noted to be hypoxic to 81% in the ER, given steroids and inhaled bronchodilators and supplemental oxygen with improvement. - History Source History Provided By: Medical Record, Caregiver Limitations to Obtaining History: Clinical Condition - Past Medical History REMEDIATION CONSULTANT: Yes: Other (severe mental retardation) Cardio/Vascular: Yes: Other (congenital heart anomoly) Pulmonary: Yes: Pneumonia Infectious Disease: Yes: MRSA Musculoskeletal: Yes: Other (multiple congenital deformities.) Endocrine: Yes: Hypothyroidism Additional Medical History: down syndrome, congenital hand deformity, cataracts - Alcohol/Substance Use Hx Alcohol Use: No - Smoking History Smoking history: Never smoked Have you smoked in the past 12 months: No Aproximately how many cigarettes per day: 0 - Social History Usual Living Arrangement: Group Home ADL: Support Services History of Recent Travel: No Home Medications - Allergies Allergies/Adverse Reactions: Allergies Allergy/AdvReac Type Severity Reaction Status Date / Time sulfamethoxazole Allergy Intermediate Hives Verified 01/08/19 23:05 [From Bactrim] trimethoprim [From Bactrim] Allergy Intermediate Hives Verified 01/08/19 23:05 azithromycin [From Zithromax] Allergy Verified 01/08/19 23:05 - Home Medications Home Medications: Ambulatory Orders Loratadine [Claritin] 10 mg PO DAILY 01/17/12 Multivitamin [Animal Shapes Vitamins] 1 tab PO DAILY 01/17/12 [place]-3 Fatty Acids/Fish Oil [Fish Oil 1,000 mg Softgel] 1 each PO DAILY Levothyroxine [Synthroid -] 75 mcg PO DAILY 10/06/14 Sodium Chloride [Saline Nasal [place]] 30 ml NS BID 10/06/14 Bisacodyl [Dulcolax] 10 mg RC PRN 02/06/18 Diazepam 2 mg PO PRN 02/06/18 Phenyleph/Mineral Oil/Petrolat [Preparation H Ointment] 4 drop AU DAILY Ranitidine HCl 75 mg PO DAILY 02/06/18 Sennosides [Senna] 8.6 mg PO DAILY 02/06/18 Clindamycin [Cleocin -] 300 mg PO TID #21 capsule 05/18/18 Lactobacillus Acidophilus [Bacid -] 1 tab PO DAILY #7 tab 05/18/18 Review of Systems Unable to obtain ROS, reason: pt nonverbal Physical Exam Vital Sings: Vital Signs Temperature 98.8 F 01/09/19 02:02 Pulse Rate 89 01/09/19 03:27 Respiratory Rate 24 H 01/09/19 03:27 Blood Pressure 99/67 01/09/19 03:27 O2 Sat by Pulse Oximetry (%) 88 L 01/09/19 03:19 Constitutional: Yes: Mild Distress (mildly tachypneic at rest) Eyes: Yes: Conjunctiva Clear, EOM Intact HENT: Yes: Atraumatic Neck: Yes: Supple, Trachea Midline Cardiovascular: Yes: Regular Rate and Rhythm Respiratory: Yes: Rhonchi, Wheezes ...Clubbing: No Gastrointestinal: Yes: Normal Bowel Sounds, Soft. No: Tenderness Edema: No Neurological: Yes: Alert Labs: CBC, BMP 01/09/19 06:40 01/09/19 06:40 ABG Results ABG pH 7.42 (7.35-7.45) 01/09/19 03:49 ABG pCO2 at Pt Temp 41.0 mmHg (35-45) 01/09/19 03:49 ABG pO2 at Pt Temp 161 mmHg (80-105) H 01/09/19 03:49 ABG HCO3 26.1 mmol/L (22-27) 01/09/19 03:49 ABG O2 Sat (Measured) 99.4 % (95-98) H 01/09/19 03:49 ABG O2 Content 19.0 % vol (15-22) 01/09/19 03:49 ABG Base Excess 1.9 meq/l (-2-2) 01/09/19 03:49 Imaging - Results Chest X-ray: Report Reviewed, Image Reviewed (cardiomegaly, no infiltrates) Problem List - Problems (1) Asthma exacerbation Code(s): J45.901 - UNSPECIFIED ASTHMA WITH (ACUTE) EXACERBATION (2) Down's syndrome Code(s): Q90.9 - DOWN SYNDROME, UNSPECIFIED (3) Mental retardation Code(s): F79 - UNSPECIFIED INTELLECTUAL DISABILITIES Assessment/Plan Acute Hypoxic Respiratory Failure Acute Asthma Exacerbation Cerebral Palsy Mental Retardation LV Systolic Dysfunction Hypothyroidism - IV medrol - inhaled bronchodilators standing and PRN - taper FiO2 to keep SpO2 >90% - aspiration precautions - DVT prophylaxis Thank you for this consult Ryan Burrell MD
--- NOTE | 2019-01-09 11:55 | CONSULT ---
Admitting History and Physical - Primary Care Physician PCP: Tristan Ozuna - Admission History of Present Illness: 48 y/o M from [facility] with hx severe MR, Down's, pericardial effusion, systolic dysfunction, congenital cardiac anomaly, hypothyroidism, hx MRSA infections, who presents to the ED with severe wheezing Per Pulmonary- Noted to be wheezing without significant relief from nebulizer treatments. Noted to be hypoxic to 81% in the ER, given steroids and inhaled bronchodilators and supplemental oxygen with improvement. Acute Asthma exac O2 sat 97% with VM 40%. Sitter at bedside Last seen in 2018, tolerated puree/thin liquids at that time.Refused thickened liquids. "Dislikes drinking." Mental Status: Awake and Alert, Able to Follow Commands (simple) Ability to Follow Directions: Fair (follows go to bathroom, change your shirt, time for dinner at [facility]) Non-Verbal (occasionally vocal.Shakes head no, pushes aWAY, pulls you to him) History Source: Medical Record, Caregiver Limitations to Obtaining History: Clinical Condition - Past Medical History LIMNOLOGIST: Yes: Other (severe mental retardation) Cardiovascular: Yes: Other (congenital heart anomoly) Pulmonary: Yes: Pneumonia Infectious Disease: Yes: MRSA Musculoskeletal: Yes: Other (multiple congenital deformities.) Endocrine: Yes: Hypothyroidism - Smoking History Smoking history: Never smoked Have you smoked in the past 12 months: No Aproximately how many cigarettes per day: 0 - Alcohol/Substance Use Hx Alcohol Use: No - Social History ADL: Support Services History of Recent Travel: No History - Admission Reason For Visit: EXACERBATION OF ASTHMA - Diagnostics X-ray: Report Reviewed - General Mental Status: Awake and Alert Attention: Mild Impairment, Moderate Impairment Head/Neck Control: Good Speech Evaluation - Communication Primary Language: INDONESIAN Communication: Yes: Non-Communicable - Speech Production Able to Make Needs Known: Yes: Severely Impaired - Speech Characteristics Voice Phonatory-based Quality: Yes: Normal - Language/Verbal Expression Functional Communication Status: Yes: Severely Impaired - Swallow Evaluation/Bedside Assessment Current Nutritional Intake: NPO Facial Symmetry at Rest: Symmetrical Lingual Movement: Symmetric Laryngeal Movement: Labored,delay initiation Rate of Intake: Slow/Holding (Tongue thrust) Bolus Size: Small Oral Prep Time: Increased A-P Transit: Impaired (tongue thrust) Timing of Swallow: Delayed Coughing/Throat Clear: Yes (stops drinking, patas chest, delayed weak cough.) Recommendations - Speech Evaluation, Impression/Plan Impression: Asthma exacerbation. r/o silent aspiration on thin liquid. Disliked thick liquid trials during 2018 admission. - Dysphagia Impressions/Plan Dysphagia Impressions: Mild Impairment, Risk of Aspiration, Ongoing Evaluation *Silent aspiration: cannot be R/O at bedside Recommendations: Modified Barium Swallow - Recommendations Diet Consistency: Dysphagia Pureed Medication Administration: Crushed with applesauce Liquids: [place] Thick Supplement: Magic Cup, Ensure Pudding
[2019-01-09] MEDS: methylPREDNISolone NA SUCC 40 MG/1 ML VIAL IVPUSH SCH ×2 (11:59→16:59)
--- NOTE | 2019-01-09 12:41 | PN ---
Physical Exam: SUBJECTIVE: Patient seen and examined with aide at bedside this morning. Per aide, he appears at baseline. Patient does not endorse acute complaints. OBJECTIVE: Vital Signs Period Temp Pulse Resp BP Sys/Jackson Pulse Ox Last 24 Hr 98.8 F 89-124 20-32 99-144/65-92 81-92 GENERAL: The patient is awake, in no acute distress. HEAD: Microcephalic, atraumatic. EYES: PERRL, sclera anicteric, conjunctiva clear. ENT: Oropharynx clear, without erythema or exudates. Moist mucous membranes. NECK: Supple without lymphadenopathy. LUNGS: Good inspiratory effort, with end expiratory wheezes auscultated bilaterally. No accessory muscle use. HEART: Regular rate and rhythm, S1, S2 without murmur, rub or gallop. ABDOMEN: Soft, nondistended, nontender to light and deep palpation x4 quadrants , no rebound tenderness, no guarding. Normoactive bowel sounds x4 quadrants. no hepatosplenomegaly, no masses. EXTREMITIES: 2+ radial, 1+ dorsalis pedis pulses bilaterally. Warm, well- perfused. No lower extremity edema bilaterally. NEUROLOGICAL: Patient freely moves all 4 extremities. No gross focal deficits. SKIN: Warm, dry. No rashes, lesions noted. Laboratory Results - last 24 hr 01/08/19 01/08/19 01/08/19 23:30 23:30 23:30 WBC 10.9 H RBC 3.92 L Hgb 13.9 Hct 40.7 MCV 103.7 H MCH 35.5 H MCHC 34.2 RDW 13.2 Plt Count 193 MPV 9.4 D Absolute Neuts (auto) 8.7 H Neutrophils % 80.0 D Neutrophils % (Manual) Band Neutrophils % Lymphocytes % 10.0 D Lymphocytes % (Manual) Monocytes % 9.3 Monocytes % (Manual) Eosinophils % 0.1 D Eosinophils % (Manual) Basophils % 0.6 Basophils % (Manual) Myelocytes % (Man) Promyelocytes % (Man) Blast Cells % (Manual) Nucleated RBC % 0 Metamyelocytes Hypochromia Platelet Estimate Platelet Comment Polychromasia Poikilocytosis Anisocytosis Microcytosis Macrocytosis Spherocytes Stomatocytes Acanthocytes (Spur) ESR PT with INR 13.00 INR 1.10 H Anticoagulation Therapy Puncture Site ABG pH ABG pCO2 at Pt Temp ABG pO2 at Pt Temp ABG HCO3 ABG O2 Sat (Measured) ABG O2 Content ABG Base Excess Boo Test O2 Delivery Device Oxygen Flow Rate Vent Mode Vent Rate Mechanical Rate Pressure Support Vent Sodium 142 Potassium 4.0 Chloride 109 H Carbon Dioxide 27 Anion Gap 6 L BUN 16 Creatinine 1.1 Creat Clearance w eGFR 71.15 Random Glucose 124 H Lactic Acid Calcium 8.2 L Phosphorus Magnesium Total Bilirubin 0.5 AST 30 ALT 24 Alkaline Phosphatase 101 C-Reactive Protein Total Protein 7.3 Albumin 2.7 L Prealbumin Vitamin B12 Serum Folate Influenza A (Rapid) Influenza B (Rapid) 01/08/19 01/09/19 01/09/19 23:30 00:23 02:22 WBC RBC Hgb Hct MCV MCH MCHC RDW Plt Count MPV Absolute Neuts (auto) Neutrophils % Neutrophils % (Manual) Band Neutrophils % Lymphocytes % Lymphocytes % (Manual) Monocytes % Monocytes % (Manual) Eosinophils % Eosinophils % (Manual) Basophils % Basophils % (Manual) Myelocytes % (Man) Promyelocytes % (Man) Blast Cells % (Manual) Nucleated RBC % Metamyelocytes Hypochromia Platelet Estimate Platelet Comment Polychromasia Poikilocytosis Anisocytosis Microcytosis Macrocytosis Spherocytes Stomatocytes Acanthocytes (Spur) ESR PT with INR INR Anticoagulation Therapy Puncture Site ABG pH ABG pCO2 at Pt Temp ABG pO2 at Pt Temp ABG HCO3 ABG O2 Sat (Measured) ABG O2 Content ABG Base Excess Boo Test O2 Delivery Device Oxygen Flow Rate Vent Mode Vent Rate Mechanical Rate Pressure Support Vent Sodium Potassium Chloride Carbon Dioxide Anion Gap BUN Creatinine Creat Clearance w eGFR Random Glucose Lactic Acid 1.9 Calcium Phosphorus Magnesium Total Bilirubin AST ALT Alkaline Phosphatase C-Reactive Protein 12.9 H Total Protein Albumin Prealbumin Vitamin B12 Serum Folate Influenza A (Rapid) Negative Influenza B (Rapid) Negative 01/09/19 01/09/19 01/09/19 02:22 02:22 02:22 WBC RBC Hgb Hct MCV MCH MCHC RDW Plt Count MPV Absolute Neuts (auto) Neutrophils % Neutrophils % (Manual) Band Neutrophils % Lymphocytes % Lymphocytes % (Manual) Monocytes % Monocytes % (Manual) Eosinophils % Eosinophils % (Manual) Basophils % Basophils % (Manual) Myelocytes % (Man) Promyelocytes % (Man) Blast Cells % (Manual) Nucleated RBC % Metamyelocytes Hypochromia Platelet Estimate Platelet Comment Polychromasia Poikilocytosis Anisocytosis Microcytosis Macrocytosis Spherocytes Stomatocytes Acanthocytes (Spur) ESR 79 H PT with INR INR Anticoagulation Therapy Puncture Site ABG pH ABG pCO2 at Pt Temp ABG pO2 at Pt Temp ABG HCO3 ABG O2 Sat (Measured) ABG O2 Content ABG Base Excess Boo Test O2 Delivery Device Oxygen Flow Rate Vent Mode Vent Rate Mechanical Rate Pressure Support Vent Sodium Potassium Chloride Carbon Dioxide Anion Gap BUN Creatinine Creat Clearance w eGFR Random Glucose Lactic Acid Calcium Phosphorus Magnesium Total Bilirubin AST ALT Alkaline Phosphatase C-Reactive Protein Total Protein Albumin Prealbumin 7.9 L Vitamin B12 1020 H Serum Folate 61 H Influenza A (Rapid) Influenza B (Rapid) 01/09/19 01/09/19 01/09/19 02:22 03:49 06:40 WBC 9.0 RBC 3.70 L Hgb 13.0 Hct 38.2 MCV 103.2 H MCH 35.2 H MCHC 34.1 RDW 12.9 Plt Count 187 MPV 9.5 Absolute Neuts (auto) 8.6 H Neutrophils % 95.2 H Neutrophils % (Manual) 92.1 H D Band Neutrophils % 1.0 Lymphocytes % 3.7 L D Lymphocytes % (Manual) 3.9 L D Monocytes % 1.0 L D Monocytes % (Manual) 2 L Eosinophils % 0.0 D Eosinophils % (Manual) 0.0 Basophils % 0.1 Basophils % (Manual) 0.0 Myelocytes % (Man) 0 Promyelocytes % (Man) 0 Blast Cells % (Manual) 0 Nucleated RBC % 0 Metamyelocytes 1 D Hypochromia 0 Platelet Estimate Normal Platelet Comment Present Polychromasia 1+ Poikilocytosis 1+ Anisocytosis 2+ Microcytosis 1+ Macrocytosis 0 Spherocytes 1+ Stomatocytes 1+ Acanthocytes (Spur) 1+ ESR PT with INR INR Anticoagulation Therapy No Result Required. No Result Required. Puncture Site No Result Required. Right radial ABG pH 7.40 7.42 ABG pCO2 at Pt Temp 46.0 H 41.0 ABG pO2 at Pt Temp 30.9 L* 161 H ABG HCO3 28.1 H 26.1 ABG O2 Sat (Measured) 53.3 L 99.4 H ABG O2 Content 9.6 L* 19.0 ABG Base Excess 3.2 H 1.9 Boo Test No Result Required. No Result Required. O2 Delivery Device No Result Required. No Result Required. Oxygen Flow Rate No Result Required. Nrb Vent Mode No Result Required. No Result Required. Vent Rate No Result Required. No Result Required. Mechanical Rate No Result Required. No Result Required. Pressure Support Vent No Result Required. No Result Required. Sodium Potassium Chloride Carbon Dioxide Anion Gap BUN Creatinine Creat Clearance w eGFR Random Glucose Lactic Acid Calcium Phosphorus Magnesium Total Bilirubin AST ALT Alkaline Phosphatase C-Reactive Protein Total Protein Albumin Prealbumin Vitamin B12 Serum Folate Influenza A (Rapid) Influenza B (Rapid) 01/09/19 06:40 WBC RBC Hgb Hct MCV MCH MCHC RDW Plt Count MPV Absolute Neuts (auto) Neutrophils % Neutrophils % (Manual) Band Neutrophils % Lymphocytes % Lymphocytes % (Manual) Monocytes % Monocytes % (Manual) Eosinophils % Eosinophils % (Manual) Basophils % Basophils % (Manual) Myelocytes % (Man) Promyelocytes % (Man) Blast Cells % (Manual) Nucleated RBC % Metamyelocytes Hypochromia Platelet Estimate Platelet Comment Polychromasia Poikilocytosis Anisocytosis Microcytosis Macrocytosis Spherocytes Stomatocytes Acanthocytes (Spur) ESR PT with INR INR Anticoagulation Therapy Puncture Site ABG pH ABG pCO2 at Pt Temp ABG pO2 at Pt Temp ABG HCO3 ABG O2 Sat (Measured) ABG O2 Content ABG Base Excess Boo Test O2 Delivery Device Oxygen Flow Rate Vent Mode Vent Rate Mechanical Rate Pressure Support Vent Sodium 145 Potassium 4.0 Chloride 108 H Carbon Dioxide 30 Anion Gap 7 L BUN 15 Creatinine 1.0 Creat Clearance w eGFR 79.42 Random Glucose 220 H Lactic Acid Calcium 8.3 L Phosphorus 3.3 Magnesium 2.5 H Total Bilirubin AST ALT Alkaline Phosphatase C-Reactive Protein Total Protein Albumin Prealbumin Vitamin B12 Serum Folate Influenza A (Rapid) Influenza B (Rapid) Active Medications Generic Name Dose Route Start Last Admin Trade Name Freq PRN Reason Stop Dose Admin Albuterol Sulfate 1 amp 01/09/19 01:30 Ventolin 0.083% Nebulizer Soln - NEB Q4H PRN SHORT OF BREATH/WHEEZING Albuterol/Ipratropium 1 amp 01/09/19 03:00 01/09/19 11:24 Duoneb - NEB Not Given RQID TANISHA Bisacodyl 10 mg 01/09/19 01:45 Dulcolax Suppository - RC DAILY PRN CONSTIPATION Heparin Sodium (Porcine) 5,000 unit 01/09/19 10:00 01/09/19 09:51 Heparin - SQ 5,000 unit BID TANISHA Administration Clindamycin Phosphate 600 mg in 50 mls @ 100 mls/hr 01/09/19 05:20 01/09/19 09:28 Cleocin 600 Mg Premix Ivpb - IVPB 100 mls/hr Q8H-IV TANISHA Administration Protocol Levothyroxine Sodium 75 mcg 01/09/19 07:00 01/09/19 06:04 Synthroid - PO 75 mcg DAILY@0700 TANISHA Administration Loratadine 10 mg 01/09/19 10:00 Claritin - PO DAILY TANISHA Methylprednisolone Sodium Succinate 40 mg 01/09/19 11:30 01/09/19 11:59 Solu-Medrol - IVPUSH 40 mg Q8H-IV TANISHA Administration ASSESSMENT/PLAN: Patient is a 48 year old male from [facility] with history of Down's syndrome , systolic dysfuncon (congenital cardiac abnormality), hypothyroidism presents with complaint of shortness of breath. Acute hypoxic respiratory failure, likely secondary to asthma exacerbation - improving -Chest radiograph shows no acute infiltrates -ABG shows no acidosis, or CO2 retention. -Influenza A/B negative. Follow viral culture. -Unable to perform CT chest as patient unable to remain still for procedure. -Duo Nebs QID standing -Albuterol nebulizer Q4H PRN -Methylprednisone 40mg IV Q8H -Follow blood cultures -Maintain oxygen saturation greater than 90% -Pulmonology recommendations appreciated. Hypothyroidism -Synthroid 75mcg PO daily Constipation -Dulcolax 10mg RC daily PRN FEN - No IV fluids indicated - Follow CMP - Dysphagia pureed diet with nectar thick liquids. Supplement with magic cup, ensure pudding. Medications with appesauece Prophylaxis -Heparin 5000u subq BID -SCDs bilateal lower extremities. Disposition -Continue care in medical- surgical floor. Visit type - Emergency Visit Emergency Visit: Yes ED Registration Date: 01/09/19 Care time: The patient presented to the Emergency Department on the above date and was hospitalized for further evaluation of their emergent condition. - New Patient This patient is new to me today: Yes Date on this admission: 01/09/19 - Critical Care Critical Care patient: No - Discharge Referral Referred to [facility] No
--- NOTE | 2019-01-09 14:41 | PN ---
Teaching Attending Note Name of Resident: Erickson Chang ATTENDING PHYSICIAN STATEMENT I saw and evaluated the patient. I reviewed the resident's note and discussed the case with the resident. I agree with the resident's findings and plan as documented. SUBJECTIVE: Patient appears SOB sitting in bed. OBJECTIVE: Vital Signs Period Temp Pulse Resp BP Sys/Jackson Pulse Ox Last 24 Hr 97.9 F-98.8 F 89-124 20-32 99-144/65-92 81-93 HEART: S1S2, RRR LUNGS: Diffuse wheezes ABDOMEN: Soft, non-distended, normal BS EXTREMITIES: No edema Laboratory Results - last 24 hr 01/08/19 01/08/19 01/08/19 23:30 23:30 23:30 WBC 10.9 H RBC 3.92 L Hgb 13.9 Hct 40.7 MCV 103.7 H MCH 35.5 H MCHC 34.2 RDW 13.2 Plt Count 193 MPV 9.4 D Absolute Neuts (auto) 8.7 H Neutrophils % 80.0 D Neutrophils % (Manual) Band Neutrophils % Lymphocytes % 10.0 D Lymphocytes % (Manual) Monocytes % 9.3 Monocytes % (Manual) Eosinophils % 0.1 D Eosinophils % (Manual) Basophils % 0.6 Basophils % (Manual) Myelocytes % (Man) Promyelocytes % (Man) Blast Cells % (Manual) Nucleated RBC % 0 Metamyelocytes Hypochromia Platelet Estimate Platelet Comment Polychromasia Poikilocytosis Anisocytosis Microcytosis Macrocytosis Spherocytes Stomatocytes Acanthocytes (Spur) ESR PT with INR 13.00 INR 1.10 H Anticoagulation Therapy Puncture Site ABG pH ABG pCO2 at Pt Temp ABG pO2 at Pt Temp ABG HCO3 ABG O2 Sat (Measured) ABG O2 Content ABG Base Excess Boo Test O2 Delivery Device Oxygen Flow Rate Vent Mode Vent Rate Mechanical Rate Pressure Support Vent Sodium 142 Potassium 4.0 Chloride 109 H Carbon Dioxide 27 Anion Gap 6 L BUN 16 Creatinine 1.1 Creat Clearance w eGFR 71.15 Random Glucose 124 H Lactic Acid Calcium 8.2 L Phosphorus Magnesium Total Bilirubin 0.5 AST 30 ALT 24 Alkaline Phosphatase 101 C-Reactive Protein Total Protein 7.3 Albumin 2.7 L Prealbumin Vitamin B12 Serum Folate Influenza A (Rapid) Influenza B (Rapid) 01/08/19 01/09/19 01/09/19 23:30 00:23 02:22 WBC RBC Hgb Hct MCV MCH MCHC RDW Plt Count MPV Absolute Neuts (auto) Neutrophils % Neutrophils % (Manual) Band Neutrophils % Lymphocytes % Lymphocytes % (Manual) Monocytes % Monocytes % (Manual) Eosinophils % Eosinophils % (Manual) Basophils % Basophils % (Manual) Myelocytes % (Man) Promyelocytes % (Man) Blast Cells % (Manual) Nucleated RBC % Metamyelocytes Hypochromia Platelet Estimate Platelet Comment Polychromasia Poikilocytosis Anisocytosis Microcytosis Macrocytosis Spherocytes Stomatocytes Acanthocytes (Spur) ESR PT with INR INR Anticoagulation Therapy Puncture Site ABG pH ABG pCO2 at Pt Temp ABG pO2 at Pt Temp ABG HCO3 ABG O2 Sat (Measured) ABG O2 Content ABG Base Excess Boo Test O2 Delivery Device Oxygen Flow Rate Vent Mode Vent Rate Mechanical Rate Pressure Support Vent Sodium Potassium Chloride Carbon Dioxide Anion Gap BUN Creatinine Creat Clearance w eGFR Random Glucose Lactic Acid 1.9 Calcium Phosphorus Magnesium Total Bilirubin AST ALT Alkaline Phosphatase C-Reactive Protein 12.9 H Total Protein Albumin Prealbumin Vitamin B12 Serum Folate Influenza A (Rapid) Negative Influenza B (Rapid) Negative 01/09/19 01/09/19 01/09/19 02:22 02:22 02:22 WBC RBC Hgb Hct MCV MCH MCHC RDW Plt Count MPV Absolute Neuts (auto) Neutrophils % Neutrophils % (Manual) Band Neutrophils % Lymphocytes % Lymphocytes % (Manual) Monocytes % Monocytes % (Manual) Eosinophils % Eosinophils % (Manual) Basophils % Basophils % (Manual) Myelocytes % (Man) Promyelocytes % (Man) Blast Cells % (Manual) Nucleated RBC % Metamyelocytes Hypochromia Platelet Estimate Platelet Comment Polychromasia Poikilocytosis Anisocytosis Microcytosis Macrocytosis Spherocytes Stomatocytes Acanthocytes (Spur) ESR 79 H PT with INR INR Anticoagulation Therapy Puncture Site ABG pH ABG pCO2 at Pt Temp ABG pO2 at Pt Temp ABG HCO3 ABG O2 Sat (Measured) ABG O2 Content ABG Base Excess Boo Test O2 Delivery Device Oxygen Flow Rate Vent Mode Vent Rate Mechanical Rate Pressure Support Vent Sodium Potassium Chloride Carbon Dioxide Anion Gap BUN Creatinine Creat Clearance w eGFR Random Glucose Lactic Acid Calcium Phosphorus Magnesium Total Bilirubin AST ALT Alkaline Phosphatase C-Reactive Protein Total Protein Albumin Prealbumin 7.9 L Vitamin B12 1020 H Serum Folate 61 H Influenza A (Rapid) Influenza B (Rapid) 01/09/19 01/09/19 01/09/19 02:22 03:49 06:40 WBC 9.0 RBC 3.70 L Hgb 13.0 Hct 38.2 MCV 103.2 H MCH 35.2 H MCHC 34.1 RDW 12.9 Plt Count 187 MPV 9.5 Absolute Neuts (auto) 8.6 H Neutrophils % 95.2 H Neutrophils % (Manual) 92.1 H D Band Neutrophils % 1.0 Lymphocytes % 3.7 L D Lymphocytes % (Manual) 3.9 L D Monocytes % 1.0 L D Monocytes % (Manual) 2 L Eosinophils % 0.0 D Eosinophils % (Manual) 0.0 Basophils % 0.1 Basophils % (Manual) 0.0 Myelocytes % (Man) 0 Promyelocytes % (Man) 0 Blast Cells % (Manual) 0 Nucleated RBC % 0 Metamyelocytes 1 D Hypochromia 0 Platelet Estimate Normal Platelet Comment Present Polychromasia 1+ Poikilocytosis 1+ Anisocytosis 2+ Microcytosis 1+ Macrocytosis 0 Spherocytes 1+ Stomatocytes 1+ Acanthocytes (Spur) 1+ ESR PT with INR INR Anticoagulation Therapy No Result Required. No Result Required. Puncture Site No Result Required. Right radial ABG pH 7.40 7.42 ABG pCO2 at Pt Temp 46.0 H 41.0 ABG pO2 at Pt Temp 30.9 L* 161 H ABG HCO3 28.1 H 26.1 ABG O2 Sat (Measured) 53.3 L 99.4 H ABG O2 Content 9.6 L* 19.0 ABG Base Excess 3.2 H 1.9 Boo Test No Result Required. No Result Required. O2 Delivery Device No Result Required. No Result Required. Oxygen Flow Rate No Result Required. Nrb Vent Mode No Result Required. No Result Required. Vent Rate No Result Required. No Result Required. Mechanical Rate No Result Required. No Result Required. Pressure Support Vent No Result Required. No Result Required. Sodium Potassium Chloride Carbon Dioxide Anion Gap BUN Creatinine Creat Clearance w eGFR Random Glucose Lactic Acid Calcium Phosphorus Magnesium Total Bilirubin AST ALT Alkaline Phosphatase C-Reactive Protein Total Protein Albumin Prealbumin Vitamin B12 Serum Folate Influenza A (Rapid) Influenza B (Rapid) 01/09/19 06:40 WBC RBC Hgb Hct MCV MCH MCHC RDW Plt Count MPV Absolute Neuts (auto) Neutrophils % Neutrophils % (Manual) Band Neutrophils % Lymphocytes % Lymphocytes % (Manual) Monocytes % Monocytes % (Manual) Eosinophils % Eosinophils % (Manual) Basophils % Basophils % (Manual) Myelocytes % (Man) Promyelocytes % (Man) Blast Cells % (Manual) Nucleated RBC % Metamyelocytes Hypochromia Platelet Estimate Platelet Comment Polychromasia Poikilocytosis Anisocytosis Microcytosis Macrocytosis Spherocytes Stomatocytes Acanthocytes (Spur) ESR PT with INR INR Anticoagulation Therapy Puncture Site ABG pH ABG pCO2 at Pt Temp ABG pO2 at Pt Temp ABG HCO3 ABG O2 Sat (Measured) ABG O2 Content ABG Base Excess Boo Test O2 Delivery Device Oxygen Flow Rate Vent Mode Vent Rate Mechanical Rate Pressure Support Vent Sodium 145 Potassium 4.0 Chloride 108 H Carbon Dioxide 30 Anion Gap 7 L BUN 15 Creatinine 1.0 Creat Clearance w eGFR 79.42 Random Glucose 220 H Lactic Acid Calcium 8.3 L Phosphorus 3.3 Magnesium 2.5 H Total Bilirubin AST ALT Alkaline Phosphatase C-Reactive Protein Total Protein Albumin Prealbumin Vitamin B12 Serum Folate Influenza A (Rapid) Influenza B (Rapid) Current Medications Generic Name Dose Route Start Last Admin Trade Name Freq PRN Reason Stop Dose Admin Albuterol Sulfate 1 amp 01/09/19 01:30 Ventolin 0.083% Nebulizer Soln - NEB Q4H PRN SHORT OF BREATH/WHEEZING Albuterol/Ipratropium 1 amp 01/09/19 03:00 01/09/19 11:24 Duoneb - NEB Not Given RQID TANISHA Bisacodyl 10 mg 01/09/19 01:45 Dulcolax Suppository - RC DAILY PRN CONSTIPATION Heparin Sodium (Porcine) 5,000 unit 01/09/19 10:00 01/09/19 09:51 Heparin - SQ 5,000 unit BID TANISHA Administration Clindamycin Phosphate 600 mg in 50 mls @ 100 mls/hr 01/09/19 05:20 01/09/19 09:28 Cleocin 600 Mg Premix Ivpb - IVPB 100 mls/hr Q8H-IV TANISHA Administration Protocol Levothyroxine Sodium 75 mcg 01/09/19 07:00 01/09/19 06:04 Synthroid - PO 75 mcg DAILY@0700 TANISHA Administration Loratadine 10 mg 01/09/19 10:00 Claritin - PO DAILY TANISHA Methylprednisolone Sodium Succinate 40 mg 01/09/19 11:30 01/09/19 11:59 Solu-Medrol - IVPUSH 40 mg Q8H-IV TANISHA Administration ASSESSMENT AND PLAN: This is a 48 year old man from [facility] with a history of severe mental retardation, Down syndrome, hypothyroidism who presented to the ED with wheezing. 1. Acute hypoxic respiratory failure secondary to asthma exacerbation - No evidence of pneumonia - discontinue Clindamycin - Start SoluMedrol - Continue DuoNeb, albuterol nebs as needed 2. Down syndrome with severe mental retardation 3. Hypothyroidism - Continue Synthroid
[2019-01-10] MEDS: methylPREDNISolone NA SUCC 40 MG/1 ML VIAL IVPUSH SCH ×2 (01:13→10:03)
[2019-01-10] MEDS: LEVOTHYROXINE NA 75 MCG TABLET (FP) PO SCH (06:12)
[2019-01-10 08:07] LABS: HEMATOCRIT 39.7 % (35.4-49); HEMOGLOBIN 13.4 GM/dL (11.7-16.9); MCH 34.9 pg (25.7-33.7); MCHC 33.7 g/dl (32.0-35.9); MEAN CELL VOLUME 103.7 fl (80-96); MEAN PLT VOLUME 10.2 fl (7.5-11.1); PLATELET COUNT 225 K/MM3 (134-434); RBC 3.83 M/mm3 (4.00-5.60); RDW 13.1 % (11.9-15.9); WHITE BLOOD COUNT 17.7 K/mm3 (4.0-10.0)
[2019-01-10 08:23] LABS: ANION GAP 9 MMOL/L (8-16); BLOOD UREA NITROGEN 22 mg/dL (7-18); CALCIUM 8.7 mg/dL (8.5-10.1); CHLORIDE 109 mmol/L (98-107); CO2 27 mmol/L (21-32); CREATININE 1.1 mg/dL (0.55-1.3); GLUCOSE,RANDOM 107 mg/dL (74-106); SODIUM 146 mmol/L (136-145)
[2019-01-10] MEDS: ALBUTEROL SO4 2.5/IPRATROPIUM 0.5 INH SOL 3 ML VIAL.NEB. NEB SCH ×5 (08:41→21:57)
[2019-01-10] MEDS ORDERED: LORazepam 2 MG/ML SDV VIAL IVPUSH PRN (09:55)
[2019-01-10] MEDS: LORATADINE 10 MG TABLET PO SCH (10:03)
[2019-01-10] MEDS: HEPARIN NA (PORCINE) 5,000 UNITS/ML 1ML VIAL SQ SCH ×2 (10:03→21:37)
--- NOTE | 2019-01-10 10:36 | PN ---
Progress Note (short form) - Note Progress Note: PULMONARY Pt nonverbal, no fevers recorded. Vital Signs Period Temp Pulse Resp BP Sys/Jackson Pulse Ox Last 24 Hr 97.5 F-97.9 F 75-98 18-20 103-135/55-74 93 Gen: NAD at rest Heart: RRR Lung: scattered rhonchi, wheezes Abd: soft, nontender Ext: no edema CBC, BMP 01/10/19 05:18 01/10/19 05:18 Active Medications Albuterol Sulfate (Ventolin 0.083% Nebulizer Soln -) 1 amp NEB Q4H PRN PRN Reason: SHORT OF BREATH/WHEEZING Albuterol/Ipratropium (Duoneb -) 1 amp NEB RQID [facility] Last Admin: 01/10/19 08:41 Dose: 1 amp Bisacodyl (Dulcolax Suppository -) 10 mg RC DAILY PRN PRN Reason: CONSTIPATION Heparin Sodium (Porcine) (Heparin -) 5,000 unit SQ BID [facility] Last Admin: 01/10/19 10:03 Dose: 5,000 unit Levothyroxine Sodium (Synthroid -) 75 mcg PO DAILY@0700 [facility] Last Admin: 01/10/19 06:12 Dose: 75 mcg Loratadine (Claritin -) 10 mg PO DAILY [facility] Last Admin: 01/10/19 10:03 Dose: 10 mg Lorazepam (Ativan Injection -) 0.5 mg IVPUSH Q8H PRN PRN Reason: AGITATION Methylprednisolone Sodium Succinate (Solu-Medrol -) 40 mg IVPUSH Q8H-IV [facility] Last Admin: 01/10/19 10:03 Dose: 40 mg A/P Acute Hypoxic Respiratory Failure improving Acute Asthma Exacerbation Cerebral Palsy Mental Retardation LV Systolic Dysfunction Hypothyroidism - continue medrol, can change to PO prednisone if IV access an issue - inhaled bronchodilators standing and PRN - taper FiO2 to keep SpO2 >90% - aspiration precautions - DVT prophylaxis Problem List - Problems (1) Asthma exacerbation Code(s): J45.901 - UNSPECIFIED ASTHMA WITH (ACUTE) EXACERBATION (2) Down's syndrome Code(s): Q90.9 - DOWN SYNDROME, UNSPECIFIED (3) Mental retardation Code(s): F79 - UNSPECIFIED INTELLECTUAL DISABILITIES
[2019-01-10] MEDS ORDERED: LORazepam 2 MG/ML SDV VIAL IM ONE (11:00)
--- NOTE | 2019-01-10 11:40 | PN ---
Teaching Attending Note Name of Resident: Erickson Chang ATTENDING PHYSICIAN STATEMENT I saw and evaluated the patient. I reviewed the resident's note and discussed the case with the resident. I agree with the resident's findings and plan as documented. SUBJECTIVE: Non-verbal, unable to communicate OBJECTIVE: Afebrile, Hemodynamically Stable. Last Vital Signs Temp Pulse Resp BP Pulse Ox 97.9 F 95 H 18 119/74 93 L 01/10/19 06:00 01/10/19 06:00 01/10/19 06:00 01/10/19 06:00 01/09/19 21:00 Heart - S1, S2, soft SM. Lungs - bilateral wheeze Abdomen - Soft, non-tender. Bowel Sounds normal. Extremities - no edema Laboratory Results - last 24 hr 01/10/19 01/10/19 05:18 05:18 WBC 17.7 H RBC 3.83 L Hgb 13.4 Hct 39.7 MCV 103.7 H MCH 34.9 H MCHC 33.7 RDW 13.1 Plt Count 225 D MPV 10.2 Sodium 146 H Potassium 4.0 Chloride 109 H Carbon Dioxide 27 Anion Gap 9 BUN 22 H Creatinine 1.1 Creat Clearance w eGFR 71.15 Random Glucose 107 H Calcium 8.7 Current Medications Generic Name Dose Route Start Last Admin Trade Name Freq PRN Reason Stop Dose Admin Albuterol Sulfate 1 amp 01/09/19 01:30 Ventolin 0.083% Nebulizer Soln - NEB Q4H PRN SHORT OF BREATH/WHEEZING Albuterol/Ipratropium 1 amp 01/09/19 03:00 01/10/19 08:41 Duoneb - NEB 1 amp RQID TANISHA Administration Bisacodyl 10 mg 01/09/19 01:45 Dulcolax Suppository - RC DAILY PRN CONSTIPATION Heparin Sodium (Porcine) 5,000 unit 01/09/19 10:00 01/10/19 10:03 Heparin - SQ 5,000 unit BID TANISHA Administration Levothyroxine Sodium 75 mcg 01/09/19 07:00 01/10/19 06:12 Synthroid - PO 75 mcg DAILY@0700 TANISHA Administration Loratadine 10 mg 01/09/19 10:00 01/10/19 10:03 Claritin - PO 10 mg DAILY TANISHA Administration Lorazepam 0.5 mg 01/10/19 09:55 Ativan Injection - IVPUSH Q8H PRN AGITATION Prednisone 40 mg 01/10/19 22:00 Deltasone - PO BID [facility] ASSESSMENT AND PLAN: 48 year old male resident at [facility] with a history of severe mental retardation, Down syndrome, hypothyroidism who presented to the ED with wheezing. 1. Acute hypoxic respiratory failure secondary to acute asthma exacerbation SpO2 87% on RA today Solumedrol changed to prednisone 40mg BID. Continue DuoNebs. Pulmonary following. 2. Down syndrome with severe mental retardation - Ativan prn to allow for toleration of supplemental O2 3. Hypothyroidism - Continue Synthroid DVT Px - Heparin SQ
--- NOTE | 2019-01-10 13:38 | PN ---
Physical Exam: SUBJECTIVE: Patient seen and examined with aide at bedside this morning. Per aide, he appears at baseline. Patient does not endorse acute complaints. OBJECTIVE: Vital Signs Period Temp Pulse Resp BP Sys/Jackson Pulse Ox Last 24 Hr 97.5 F-97.9 F 75-98 18-20 103-135/55-74 93 GENERAL: The patient is awake, in no acute distress. HEAD: Microcephalic, atraumatic. EYES: PERRL, sclera anicteric, conjunctiva clear. ENT: Oropharynx clear, without erythema or exudates. Moist mucous membranes. NECK: Supple without lymphadenopathy. LUNGS: Good inspiratory effort, with end expiratory wheezes auscultated bilaterally. No accessory muscle use. HEART: Regular rate and rhythm, S1, S2 without murmur, rub or gallop. ABDOMEN: Soft, nondistended, nontender to light and deep palpation x4 quadrants , no rebound tenderness, no guarding. Normoactive bowel sounds x4 quadrants. no hepatosplenomegaly, no masses. EXTREMITIES: 2+ radial, 1+ dorsalis pedis pulses bilaterally. Warm, well- perfused. No lower extremity edema bilaterally. NEUROLOGICAL: Patient freely moves all 4 extremities. No gross focal deficits. SKIN: Warm, dry. No rashes, lesions noted. Laboratory Results - last 24 hr 01/10/19 01/10/19 05:18 05:18 WBC 17.7 H RBC 3.83 L Hgb 13.4 Hct 39.7 MCV 103.7 H MCH 34.9 H MCHC 33.7 RDW 13.1 Plt Count 225 D MPV 10.2 Sodium 146 H Potassium 4.0 Chloride 109 H Carbon Dioxide 27 Anion Gap 9 BUN 22 H Creatinine 1.1 Creat Clearance w eGFR 71.15 Random Glucose 107 H Calcium 8.7 Active Medications Generic Name Dose Route Start Last Admin Trade Name Freq PRN Reason Stop Dose Admin Albuterol Sulfate 1 amp 01/09/19 01:30 Ventolin 0.083% Nebulizer Soln - NEB Q4H PRN SHORT OF BREATH/WHEEZING Albuterol/Ipratropium 1 amp 01/09/19 03:00 01/10/19 12:16 Duoneb - NEB 1 amp RQID TANISHA Administration Bisacodyl 10 mg 01/09/19 01:45 Dulcolax Suppository - RC DAILY PRN CONSTIPATION Heparin Sodium (Porcine) 5,000 unit 01/09/19 10:00 01/10/19 10:03 Heparin - SQ 5,000 unit BID TANISHA Administration Levothyroxine Sodium 75 mcg 01/09/19 07:00 01/10/19 06:12 Synthroid - PO 75 mcg DAILY@0700 TANISHA Administration Loratadine 10 mg 01/09/19 10:00 01/10/19 10:03 Claritin - PO 10 mg DAILY TANISHA Administration Lorazepam 0.5 mg 01/10/19 09:55 Ativan Injection - IVPUSH Q8H PRN AGITATION Prednisone 40 mg 01/10/19 22:00 Deltasone - PO BID [facility] ASSESSMENT/PLAN: Patient is a 48 year old male from [facility] with history of Down's syndrome , systolic dysfunction (congenital cardiac abnormality), hypothyroidism presents with complaint of shortness of breath. Acute hypoxic respiratory failure, likely secondary to asthma exacerbation - improving -Chest radiograph shows no acute infiltrates -ABG shows no acidosis, or CO2 retention. -Influenza A/B negative. Follow viral culture. -Unable to perform CT chest as patient unable to remain still for procedure. -Duo Nebs QID standing -Albuterol nebulizer Q4H PRN -Prednisone 40mg PO BID -Follow blood cultures -Maintain oxygen saturation greater than 90% -Pulmonology recommendations appreciated. Hypothyroidism -Synthroid 75mcg PO daily Macrocytosis -Follow B12, Folate levels -Follow CBC Constipation -Dulcolax 10mg RC daily PRN FEN - No IV fluids indicated - Follow CMP - Dysphagia pureed diet with nectar thick liquids. Supplement with magic cup, ensure pudding. Medications with appesauece Prophylaxis -Heparin 5000u subq BID -SCDs bilateal lower extremities. Disposition -Continue care in medical- surgical floor. Visit type - Emergency Visit Emergency Visit: Yes ED Registration Date: 01/09/19 Care time: The patient presented to the Emergency Department on the above date and was hospitalized for further evaluation of their emergent condition. - New Patient This patient is new to me today: No - Critical Care Critical Care patient: No - Discharge Referral Referred to [facility] Med P.C.: No
[2019-01-10] MEDS ORDERED: LORazepam 2 MG/ML SDV VIAL IVPUSH STA (14:41)
[2019-01-10] MEDS ORDERED: LORazepam 2 MG/ML SDV VIAL IVPUSH ONE (18:38)
[2019-01-10] MEDS: predniSONE 20 MG TABLET (UD) PO SCH (21:37)
[2019-01-11] MEDS: LEVOTHYROXINE NA 75 MCG TABLET (FP) PO SCH (06:31)
[2019-01-11 08:00] LABS: HEMATOCRIT 39.3 % (35.4-49); MCH 34.3 pg (25.7-33.7); MCHC 33.1 g/dl (32.0-35.9); MEAN CELL VOLUME 103.5 fl (80-96); MEAN PLT VOLUME 9.6 fl (7.5-11.1); PLATELET COUNT 256 K/MM3 (134-434); RBC 3.79 M/mm3 (4.00-5.60); RDW 13.1 % (11.9-15.9); WHITE BLOOD COUNT 18.9 K/mm3 (4.0-10.0)
[2019-01-11] MEDS: ALBUTEROL SO4 2.5/IPRATROPIUM 0.5 INH SOL 3 ML VIAL.NEB. NEB SCH ×4 (08:00→20:32)
[2019-01-11 08:28] LABS: ALBUMIN 2.6 g/dl (3.4-5.0); ALK PHOS 82 U/L (45-117); ANION GAP 8 MMOL/L (8-16); BILIRUBIN,TOTAL 0.3 mg/dL (0.2-1); BLOOD UREA NITROGEN 25 mg/dL (7-18); CALCIUM 8.5 mg/dL (8.5-10.1); CHLORIDE 112 mmol/L (98-107); CO2 28 mmol/L (21-32); CREATININE 0.9 mg/dL (0.55-1.3); GLUCOSE,RANDOM 112 mg/dL (74-106); POTASSIUM 4.1 mmol/L (3.5-5.1); SGOT/AST 19 U/L (15-37); SGPT/ALT 24 U/L (13-61); SODIUM 148 mmol/L (136-145); TOT PROT 6.5 g/dl (6.4-8.2)
[2019-01-11] MEDS: LORATADINE 10 MG TABLET PO SCH (11:09)
[2019-01-11] MEDS: predniSONE 20 MG TABLET (UD) PO SCH ×2 (11:09→21:27)
[2019-01-11] MEDS: HEPARIN NA (PORCINE) 5,000 UNITS/ML 1ML VIAL SQ SCH ×2 (11:10→21:27)
--- NOTE | 2019-01-11 11:26 | PN ---
Physical Exam: SUBJECTIVE: Patient seen and examined with aide at bedside this morning. Patient does not endorse acute complaints. OBJECTIVE: Vital Signs Period Temp Pulse Resp BP Sys/Jackson Pulse Ox Last 24 Hr 97.9 F-98.0 F 76-104 18-22 95-136/55-65 94 GENERAL: The patient is awake, in no acute distress. HEAD: Microcephalic, atraumatic. EYES: PERRL, sclera anicteric, conjunctiva clear. ENT: Oropharynx clear, without erythema or exudates. Moist mucous membranes. NECK: Supple without lymphadenopathy. LUNGS: Good inspiratory effort, without wheezing auscultated bilaterally. No accessory muscle use. HEART: Regular rate and rhythm, S1, S2 without murmur, rub or gallop. ABDOMEN: Soft, nondistended, nontender to light and deep palpation x4 quadrants , no rebound tenderness, no guarding. Normoactive bowel sounds x4 quadrants. no hepatosplenomegaly, no masses. EXTREMITIES: 2+ radial, 1+ dorsalis pedis pulses bilaterally. Warm, well- perfused. No lower extremity edema bilaterally. NEUROLOGICAL: Patient freely moves all 4 extremities. No gross focal deficits. SKIN: Warm, dry. No rashes, lesions noted. Laboratory Results - last 24 hr 01/11/19 01/11/19 07:00 07:00 WBC 18.9 H RBC 3.79 L Hgb 13.0 Hct 39.3 MCV 103.5 H MCH 34.3 H MCHC 33.1 RDW 13.1 Plt Count 256 MPV 9.6 Sodium 148 H Potassium 4.1 Chloride 112 H Carbon Dioxide 28 Anion Gap 8 BUN 25 H Creatinine 0.9 Creat Clearance w eGFR 89.69 Random Glucose 112 H Calcium 8.5 Total Bilirubin 0.3 AST 19 ALT 24 Alkaline Phosphatase 82 Total Protein 6.5 Albumin 2.6 L Active Medications Generic Name Dose Route Start Last Admin Trade Name Freq PRN Reason Stop Dose Admin Albuterol Sulfate 1 amp 01/09/19 01:30 Ventolin 0.083% Nebulizer Soln - NEB Q4H PRN SHORT OF BREATH/WHEEZING Albuterol/Ipratropium 1 amp 01/09/19 03:00 01/10/19 21:57 Duoneb - NEB 1 amp RQID TANISHA Administration Bisacodyl 10 mg 01/09/19 01:45 Dulcolax Suppository - RC DAILY PRN CONSTIPATION Heparin Sodium (Porcine) 5,000 unit 01/09/19 10:00 01/11/19 11:10 Heparin - SQ 5,000 unit BID TANISHA Administration Levothyroxine Sodium 75 mcg 01/09/19 07:00 01/11/19 06:31 Synthroid - PO 75 mcg DAILY@0700 TANISHA Administration Loratadine 10 mg 01/09/19 10:00 01/11/19 11:09 Claritin - PO 10 mg DAILY TANISHA Administration Lorazepam 0.5 mg 01/10/19 09:55 Ativan Injection - IVPUSH Q8H PRN AGITATION Prednisone 40 mg 01/10/19 22:00 01/11/19 11:09 Deltasone - PO 40 mg BID TANISHA Administration ASSESSMENT/PLAN: Patient is a 48 year old male from [facility] with history of Down's syndrome , systolic dysfunction (congenital cardiac abnormality), hypothyroidism presents with complaint of shortness of breath. Acute hypoxic respiratory failure, likely secondary to asthma exacerbation - improving -Chest radiograph shows no acute infiltrates -ABG shows no acidosis, or CO2 retention. -Influenza A/B negative. Follow viral culture. -Unable to perform CT chest as patient unable to remain still for procedure. -Duo Nebs QID standing -Albuterol nebulizer Q4H PRN -Prednisone 40mg PO BID -Follow blood cultures -Maintain oxygen saturation greater than 90% -Pulmonology recommendations appreciated. Hypothyroidism -Synthroid 75mcg PO daily Macrocytosis -Follow B12, Folate elevated. Patient will require outpatient follow up. -Follow CBC Constipation -Dulcolax 10mg RC daily PRN FEN - No IV fluids indicated - Follow CMP - Dysphagia pureed diet with nectar thick liquids. Supplement with magic cup, ensure pudding. Medications with appesauece Prophylaxis -Heparin 5000u subq BID -SCDs bilateral lower extremities. Disposition -Continue care in medical- surgical floor. Visit type - Emergency Visit Emergency Visit: Yes ED Registration Date: 01/09/19 Care time: The patient presented to the Emergency Department on the above date and was hospitalized for further evaluation of their emergent condition. - New Patient This patient is new to me today: No - Critical Care Critical Care patient: No - Discharge Referral Referred to [facility] Med P.C.: No
--- NOTE | 2019-01-11 11:33 | PN ---
Progress Note, [employer]ACH - Note Progress Note: Selected Entries 01/10/19 01/10/19 01/10/19 02:00 06:00 09:00 Breakfast Lunch Supper Temperature 97.5 F L 97.9 F 97.5 F L 01/10/19 01/10/19 01/10/19 09:03 14:28 18:00 Breakfast 50% Lunch 0 Supper Temperature 98.0 F 98.0 F 01/10/19 01/11/19 18:05 06:00 Breakfast Lunch Supper 50% Temperature 97.9 F Laboratory Tests 01/09/19 01/10/19 01/11/19 06:40 05:18 07:00 WBC 9.0 17.7 H 18.9 H MBS reviewed with staff. Tolerating diet.
--- NOTE | 2019-01-11 12:49 | PN ---
Teaching Attending Note Name of Resident: Erickson Chang ATTENDING PHYSICIAN STATEMENT I saw and evaluated the patient. I reviewed the resident's note and discussed the case with the resident. I agree with the resident's findings and plan as documented. SUBJECTIVE: Non-verbal, unable to communicate. Unable to tolerate O2 via NC for prolonged periods. OBJECTIVE: Afebrile, Hemodynamically Stable. Appears comfortable. Last Vital Signs Temp Pulse Resp BP Pulse Ox 97.1 F L 105 H 18 115/61 94 L 01/11/19 10:00 01/11/19 10:00 01/11/19 10:00 01/11/19 10:00 01/10/19 21:00 Heart - S1, S2, soft SM. Lungs - bilateral wheeze improving. Abdomen - Soft, non-tender. Bowel Sounds normal. Extremities - no edema Laboratory Results - last 24 hr 01/11/19 01/11/19 07:00 07:00 WBC 18.9 H RBC 3.79 L Hgb 13.0 Hct 39.3 MCV 103.5 H MCH 34.3 H MCHC 33.1 RDW 13.1 Plt Count 256 MPV 9.6 Sodium 148 H Potassium 4.1 Chloride 112 H Carbon Dioxide 28 Anion Gap 8 BUN 25 H Creatinine 0.9 Creat Clearance w eGFR 89.69 Random Glucose 112 H Calcium 8.5 Total Bilirubin 0.3 AST 19 ALT 24 Alkaline Phosphatase 82 Total Protein 6.5 Albumin 2.6 L Current Medications Generic Name Dose Route Start Last Admin Trade Name Freq PRN Reason Stop Dose Admin Albuterol Sulfate 1 amp 01/09/19 01:30 Ventolin 0.083% Nebulizer Soln - NEB Q4H PRN SHORT OF BREATH/WHEEZING Albuterol/Ipratropium 1 amp 01/09/19 03:00 01/11/19 11:59 Duoneb - NEB 1 amp RQID TANISHA Administration Bisacodyl 10 mg 01/09/19 01:45 Dulcolax Suppository - RC DAILY PRN CONSTIPATION Heparin Sodium (Porcine) 5,000 unit 01/09/19 10:00 01/11/19 11:10 Heparin - SQ 5,000 unit BID TANISHA Administration Levothyroxine Sodium 75 mcg 01/09/19 07:00 01/11/19 06:31 Synthroid - PO 75 mcg DAILY@0700 TANISHA Administration Loratadine 10 mg 01/09/19 10:00 01/11/19 11:09 Claritin - PO 10 mg DAILY TANISHA Administration Lorazepam 0.5 mg 01/10/19 09:55 Ativan Injection - IVPUSH Q8H PRN AGITATION Prednisone 40 mg 01/10/19 22:00 01/11/19 11:09 Deltasone - PO 40 mg BID TANISHA Administration ASSESSMENT AND PLAN: 48 year old male resident at [facility] with a history of severe mental retardation, Down syndrome, hypothyroidism who presented to the ED with wheezing. 1. Acute hypoxic respiratory failure secondary to acute asthma exacerbation - hypoxia persisting SpO2 88% on RA today Continue prednisone 40mg BID, DuoNebs. Pulmonary following. Influenza requested. 2. Down syndrome with severe mental retardation - Ativan prn to allow for toleration of supplemental O2 3. Hypothyroidism - Continue Synthroid 4. Macrocytosis - MCV 103. B12/Folate 1020/61. Etiology unclear - recommend out- patient Hematology referral. 5. Leukocytosis - secondary to steroid. No evidence of superimposed infection. Afebrile, Hemodynamically Stable. DVT Px - Heparin SQ
--- NOTE | 2019-01-11 12:50 | PN ---
Progress Note, Physician History of Present Illness: PULMONARY AWAKE,COMFORTABLE,-RESP DISTRESS,-CONGESTION - Current Medication List Current Medications: Active Medications Albuterol Sulfate (Ventolin 0.083% Nebulizer Soln -) 1 amp NEB Q4H PRN PRN Reason: SHORT OF BREATH/WHEEZING Albuterol/Ipratropium (Duoneb -) 1 amp NEB RQID [facility] Last Admin: 01/11/19 11:59 Dose: 1 amp Bisacodyl (Dulcolax Suppository -) 10 mg RC DAILY PRN PRN Reason: CONSTIPATION Heparin Sodium (Porcine) (Heparin -) 5,000 unit SQ BID [facility] Last Admin: 01/11/19 11:10 Dose: 5,000 unit Levothyroxine Sodium (Synthroid -) 75 mcg PO DAILY@0700 [facility] Last Admin: 01/11/19 06:31 Dose: 75 mcg Loratadine (Claritin -) 10 mg PO DAILY [facility] Last Admin: 01/11/19 11:09 Dose: 10 mg Lorazepam (Ativan Injection -) 0.5 mg IVPUSH Q8H PRN PRN Reason: AGITATION Prednisone (Deltasone -) 40 mg PO BID [facility] Last Admin: 01/11/19 11:09 Dose: 40 mg - Objective Vital Signs: Vital Signs Temperature 97.1 F L 01/11/19 10:00 Pulse Rate 105 H 01/11/19 10:00 Respiratory Rate 18 01/11/19 10:00 Blood Pressure 115/61 01/11/19 10:00 O2 Sat by Pulse Oximetry (%) 94 L 01/10/19 21:00 Constitutional: Yes: Calm, Thin Eyes: Yes: WNL HENT: Yes: WNL Neck: Yes: WNL Cardiovascular: Yes: Regular Rate and Rhythm, S1, S2 Respiratory: Yes: Rhonchi (FEW RHONCHI) Gastrointestinal: Yes: Normal Bowel Sounds, Soft Extremities: Yes: WNL Edema: No Labs: CBC, BMP 01/11/19 07:00 01/11/19 07:00 INR, PTT INR 1.10 (0.83-1.09) H 01/08/19 23:30 Assessment/Plan A/P Acute Hypoxic Respiratory Failure improving Acute Asthma Exacerbation improving Cerebral Palsy Mental Retardation LV Systolic Dysfunction Hypothyroidism - prednisone - inhaled bronchodilators standing and PRN - taper FiO2 to keep SpO2 >90% - aspiration precautions - DVT prophylaxis DR BELL Problem List - Problems (1) Asthma exacerbation Code(s): J45.901 - UNSPECIFIED ASTHMA WITH (ACUTE) EXACERBATION (2) Down's syndrome Code(s): Q90.9 - DOWN SYNDROME, UNSPECIFIED (3) Mental retardation Code(s): F79 - UNSPECIFIED INTELLECTUAL DISABILITIES
[2019-01-11] MEDS ORDERED: SODIUM CHLORIDE 500 ML IV STA ×2 (13:20→16:09)
[2019-01-11] MEDS ORDERED: LORazepam 2 MG/ML SDV VIAL IVPUSH ONE (14:47)
[2019-01-11 15:56] VITALS: BMI 23.1
[2019-01-12] MEDS: LEVOTHYROXINE NA 75 MCG TABLET (FP) PO SCH (06:33)
[2019-01-12 07:21] LABS: HEMOGLOBIN 13.6 GM/dL (11.7-16.9); MEAN CELL VOLUME 102.9 fl (80-96); MEAN PLT VOLUME 9.5 fl (7.5-11.1); PLATELET COUNT 236 K/MM3 (134-434); RBC 3.89 M/mm3 (4.00-5.60); RDW 13.4 % (11.9-15.9); WHITE BLOOD COUNT 14.4 K/mm3 (4.0-10.0)
[2019-01-12 07:30] LABS: ALBUMIN 2.6 g/dl (3.4-5.0); ALK PHOS 79 U/L (45-117); ANION GAP 4 MMOL/L (8-16); BILIRUBIN,TOTAL 0.4 mg/dL (0.2-1); BLOOD UREA NITROGEN 18 mg/dL (7-18); CALCIUM 8.8 mg/dL (8.5-10.1); CHLORIDE 109 mmol/L (98-107); CO2 32 mmol/L (21-32); CREATININE 0.9 mg/dL (0.55-1.3); GLUCOSE,RANDOM 125 mg/dL (74-106); POTASSIUM 4.7 mmol/L (3.5-5.1); SGOT/AST 20 U/L (15-37); SGPT/ALT 27 U/L (13-61); SODIUM 145 mmol/L (136-145); TOT PROT 6.2 g/dl (6.4-8.2)
[2019-01-12] MEDS: ALBUTEROL SO4 2.5/IPRATROPIUM 0.5 INH SOL 3 ML VIAL.NEB. NEB SCH ×2 (07:30→11:25)
[2019-01-12 09:12] VITALS: BP 108/79; PULSE 95; TEMP 97.7
--- NOTE | 2019-01-12 09:58 | PN ---
Progress Note (short form) - Note Progress Note: PULMONARY Pt nonverbal, no fevers recorded. Saturating 98% on room air on my assessment. Vital Signs Period Temp Pulse Resp BP Sys/Jackson Pulse Ox Last 24 Hr 97.1 F-97.9 F 95-105 18-24 106-133/45-86 91-93 Gen: NAD at rest Heart: RRR Lung: scattered rhonchi, wheezes Abd: soft, nontender Ext: no edema CBC, BMP 01/12/19 06:00 01/12/19 06:00 Active Medications Albuterol Sulfate (Ventolin 0.083% Nebulizer Soln -) 1 amp NEB Q4H PRN PRN Reason: SHORT OF BREATH/WHEEZING Albuterol/Ipratropium (Duoneb -) 1 amp NEB RQID [facility] Last Admin: 01/12/19 07:30 Dose: 1 amp Bisacodyl (Dulcolax Suppository -) 10 mg RC DAILY PRN PRN Reason: CONSTIPATION Heparin Sodium (Porcine) (Heparin -) 5,000 unit SQ BID [facility] Last Admin: 01/11/19 21:27 Dose: 5,000 unit Levothyroxine Sodium (Synthroid -) 75 mcg PO DAILY@0700 [facility] Last Admin: 01/12/19 06:33 Dose: 75 mcg Loratadine (Claritin -) 10 mg PO DAILY [facility] Last Admin: 01/11/19 11:09 Dose: 10 mg Lorazepam (Ativan Injection -) 0.5 mg IVPUSH Q8H PRN PRN Reason: AGITATION Prednisone (Deltasone -) 40 mg PO BID [facility] Last Admin: 01/11/19 21:27 Dose: 40 mg A/P Acute Hypoxic Respiratory Failure improving Acute Asthma Exacerbation Cerebral Palsy Mental Retardation LV Systolic Dysfunction Hypothyroidism - can decrease prednisone to daily - inhaled bronchodilators standing and PRN - aspiration precautions - DVT prophylaxis - can discharge from pulmonary standpoint on prednisone taper Problem List - Problems (1) Asthma exacerbation Code(s): J45.901 - UNSPECIFIED ASTHMA WITH (ACUTE) EXACERBATION (2) Down's syndrome Code(s): Q90.9 - DOWN SYNDROME, UNSPECIFIED (3) Mental retardation Code(s): F79 - UNSPECIFIED INTELLECTUAL DISABILITIES
[2019-01-12] MEDS ORDERED: predniSONE 20 MG TABLET (UD) PO SCH (10:00)
--- NOTE | 2019-01-12 11:04 | PN ---
Teaching Attending Note Name of Resident: Erickson Chang ATTENDING PHYSICIAN STATEMENT I saw and evaluated the patient. I reviewed the resident's note and discussed the case with the resident. I agree with the resident's findings and plan as documented. SUBJECTIVE: Non-verbal, unable to communicate. OBJECTIVE: Afebrile, Hemodynamically Stable. Appears comfortable. Last Vital Signs Temp Pulse Resp BP Pulse Ox 97.7 F 95 H 18 108/79 91 L 01/12/19 09:12 01/12/19 09:12 01/12/19 09:12 01/12/19 09:12 01/12/19 09:00 Heart - S1, S2, soft SM. Lungs - bilateral wheeze improved Abdomen - Soft, non-tender. Bowel Sounds normal. Extremities - no edema Laboratory Results - last 24 hr 01/12/19 01/12/19 06:00 06:00 WBC 14.4 H RBC 3.89 L Hgb 13.6 Hct 40.0 MCV 102.9 H MCH 35.0 H MCHC 34.0 RDW 13.4 Plt Count 236 MPV 9.5 Sodium 145 Potassium 4.7 Chloride 109 H Carbon Dioxide 32 Anion Gap 4 L BUN 18 Creatinine 0.9 Creat Clearance w eGFR 89.69 Random Glucose 125 H Calcium 8.8 Total Bilirubin 0.4 AST 20 ALT 27 Alkaline Phosphatase 79 Total Protein 6.2 L Albumin 2.6 L Current Medications Generic Name Dose Route Start Last Admin Trade Name Freq PRN Reason Stop Dose Admin Albuterol Sulfate 1 amp 01/09/19 01:30 Ventolin 0.083% Nebulizer Soln - NEB Q4H PRN SHORT OF BREATH/WHEEZING Albuterol/Ipratropium 1 amp 01/09/19 03:00 01/12/19 07:30 Duoneb - NEB 1 amp RQID TANISHA Administration Bisacodyl 10 mg 01/09/19 01:45 Dulcolax Suppository - RC DAILY PRN CONSTIPATION Heparin Sodium (Porcine) 5,000 unit 01/09/19 10:00 01/11/19 21:27 Heparin - SQ 5,000 unit BID TANISHA Administration Levothyroxine Sodium 75 mcg 01/09/19 07:00 01/12/19 06:33 Synthroid - PO 75 mcg DAILY@0700 TANISHA Administration Loratadine 10 mg 01/09/19 10:00 01/11/19 11:09 Claritin - PO 10 mg DAILY [facility] Administration Lorazepam 0.5 mg 01/10/19 09:55 Ativan Injection - IVPUSH Q8H PRN AGITATION Prednisone 40 mg 01/12/19 10:00 Deltasone - PO DAILY [facility] Discharge Medications Medication Instructions Recorded Loratadine [Claritin] 10 mg PO DAILY 01/17/12 Multivitamin [Animal Shapes 1 tab PO DAILY 01/17/12 Vitamins] Lopez-3 Fatty Acids/Fish Oil [Fish 1 each PO DAILY 01/17/12 Oil 1,000 mg Softgel] Levothyroxine [Synthroid -] 75 mcg PO DAILY 10/06/14 Sodium Chloride [Saline Nasal 30 ml NS BID 10/06/14 [place]] Bisacodyl [Dulcolax] 10 mg RC PRN 02/06/18 Diazepam 2 mg PO PRN 02/06/18 Phenyleph/Mineral Oil/Petrolat 4 drop AU DAILY 02/06/18 [Preparation H Ointment] Ranitidine HCl 75 mg PO DAILY 02/06/18 Sennosides [Senna] 8.6 mg PO DAILY 02/06/18 Lactobacillus Acidophilus [Bacid -] 1 tab PO DAILY #7 tab 05/18/18 Prednisone See Taper PO ASDIR #31 tablet 01/12/19 ASSESSMENT AND PLAN: 48 year old male resident at [facility] with a history of severe mental retardation, Down syndrome, hypothyroidism who presented to the ED with wheezing. 1. Acute hypoxic respiratory failure secondary to acute asthma exacerbation - hypoxia persisting SpO2 91% on RA today Flu negative Continue prednisone taper, DuoNebs. Pulmonary to follow on discharge. 2. Down syndrome with severe mental retardation - Continue diazepam prn. 3. Hypothyroidism - Continue Synthroid 4. Macrocytosis - MCV 103. B12/Folate 1020/61. Etiology unclear - recommend out- patient Hematology referral. 5. Leukocytosis - secondary to steroid. No evidence of superimposed infection. Afebrile, Hemodynamically Stable. Significantly improved from respiratory standpoint, cleared by Pulmonary, Medically stable for transfer back to [facility].
[2019-01-12] MEDS: LORATADINE 10 MG TABLET PO SCH (11:18)
[2019-01-12] MEDS: HEPARIN NA (PORCINE) 5,000 UNITS/ML 1ML VIAL SQ SCH (11:18)
--- NOTE | 2019-01-12 11:49 | DS ---
Physical Exam: SUBJECTIVE: Patient seen and examined at bedside this morning. He is saturating well on room air. Patient does not endorse acute complaints. OBJECTIVE: Vital Signs Period Temp Pulse Resp BP Sys/Jackson Pulse Ox Last 24 Hr 97.7 F-97.9 F 95-104 18-24 106-133/45-86 91-93 PHYSICAL EXAM GENERAL: The patient is awake, in no acute distress. HEAD: Microcephalic, atraumatic. EYES: PERRL, sclera anicteric, conjunctiva clear. ENT: Oropharynx clear, without erythema or exudates. Moist mucous membranes. NECK: Supple without lymphadenopathy. LUNGS: Good inspiratory effort, and air entry without wheezing auscultated bilaterally. No accessory muscle use. HEART: Regular rate and rhythm, S1, S2 without murmur, rub or gallop. ABDOMEN: Soft, nondistended, nontender to light and deep palpation x4 quadrants , no rebound tenderness, no guarding. Normoactive bowel sounds x4 quadrants. no hepatosplenomegaly, no masses. EXTREMITIES: 2+ radial, 1+ dorsalis pedis pulses bilaterally. Warm, well- perfused. No lower extremity edema bilaterally. NEUROLOGICAL: Patient freely moves all 4 extremities. No gross focal deficits. SKIN: Warm, dry. No rashes, lesions noted. LABS Laboratory Results - last 24 hr 01/12/19 01/12/19 06:00 06:00 WBC 14.4 H RBC 3.89 L Hgb 13.6 Hct 40.0 MCV 102.9 H MCH 35.0 H MCHC 34.0 RDW 13.4 Plt Count 236 MPV 9.5 Sodium 145 Potassium 4.7 Chloride 109 H Carbon Dioxide 32 Anion Gap 4 L BUN 18 Creatinine 0.9 Creat Clearance w eGFR 89.69 Random Glucose 125 H Calcium 8.8 Total Bilirubin 0.4 AST 20 ALT 27 Alkaline Phosphatase 79 Total Protein 6.2 L Albumin 2.6 L HOSPITAL COURSE: Date of Admission:01/09/19 Date of Discharge: 01/12/19 Patient is a 48 year old male from [facility] with history of Down's syndrome , systolic dysfunction (congenital cardiac abnormality), hypothyroidism presented with complaint of shortness of breath. Chest radiograph showed no acute infiltrates. ABG showed no acidosis, or CO2 retention. Influenza A/B negative. Acute hypoxic respiratory failure, likely secondary to asthma exacerbation. Patient was evaluated by pulmonology, and treated with steroids and nebulizer treatments. Hypothyroidism managed with synthroid. Patient developed leukocytosis, likely secondary to steroids. Patient was noted to be macrocytic, with B12 1020, Folate 61. Case discussed with [facility] physician, and patient discharged back to [facility] with Prednisone taper. Patient discharged to follow up with pulmonology, and hematology. Minutes to complete discharge: 35 Discharge Summary Reason For Visit: EXACERBATION OF ASTHMA Current Active Problems Asthma exacerbation (Acute) Condition: Stable - Instructions Diet, Activity, Other Instructions: You were admitted to hospital for asthma exacerbation. You were evaluated by the jewel oliving machine operator, and treated with steroids and breathing treatments. You are being discharged back to [facility]. Continue taking your home medications as directed. You will continue taking steroid taper as directed: 01/12 Take Prednisone 40mg once daily 01/13 Take Prednisone 40mg once daily 01/14 Take Prednisone 40mg once daily 01/15 Take Prednisone 30mg once daily 01/16 Take Prednisone 30mg once daily 01/17 Take Prednisone 30mg once daily 01/18 Take Prednisone 20mg once daily 01/19 Take Prednisone 20mg once daily 01/20 Take Prednisone 20mg once daily 01/21 Take Prednisone 10mg once daily 01/22 Take Prednisone 10mg once daily 01/23 Take Prednisone 10mg once daily 01/24 Take Prednisone 5mg once daily 01/25 Take Prednisone 5mg once daily Follow up with your primary care physician within two- three days after discharge. Your blood cells were noted to be enlarged. Discuss with your primary care provider regarding Hematology follow up referral. Follow up with jewel oliving machine operator (Dr. Qurioz) within one week of discharge. A referral has been provided. Return to the nearest Emergency Department if you experience worsening symptoms , fevers, chills, shortness of breath, chest pain, palpitations, abdominal pain , nausea, vomiting, diarrhea. Referrals: Steve Quiroz MD [Staff Physician] - Roman Hernández MD [Staff Physician] - Disposition: [facility] FACILITY - Home Medications Comprehensive Discharge Medication List: Ambulatory Orders Loratadine [Claritin] 10 mg PO DAILY 01/17/12 Multivitamin [Animal Shapes Vitamins] 1 tab PO DAILY 01/17/12 [place]-3 Fatty Acids/Fish Oil [Fish Oil 1,000 mg Softgel] 1 each PO DAILY Levothyroxine [Synthroid -] 75 mcg PO DAILY 10/06/14 Sodium Chloride [Saline Nasal [place]] 30 ml NS BID 10/06/14 Bisacodyl [Dulcolax] 10 mg RC PRN 02/06/18 Diazepam 2 mg PO PRN 02/06/18 Phenyleph/Mineral Oil/Petrolat [Preparation H Ointment] 4 drop AU DAILY Ranitidine HCl 75 mg PO DAILY 02/06/18 Sennosides [Senna] 8.6 mg PO DAILY 02/06/18 Lactobacillus Acidophilus [Bacid -] 1 tab PO DAILY #7 tab 05/18/18 Prednisone See Taper PO ASDIR #31 tablet 01/12/19 This patient is new to me today: No Emergency Visit: Yes ED Registration Date: 01/09/19 Care time: The patient presented to the Emergency Department on the above date and was hospitalized for further evaluation of their emergent condition. Critical Care patient: No - Discharge Referral Referred to [facility] Med P.C.: No
== END 2019-01-12 13:34 | DRG 189 ==
LOC: JER 23:04 → JERBED 01-09 01:13 → J5S 01-09 02:28
PROVIDERS: ADMIT Internal Medicine
PROC: 3E0F7GC Introduction of Other Therapeutic Substance into Respiratory Tract, Via Natural or Artificial Opening (ICD-10-PCS; principal; 2019-01-09)
DX: J96.01 Acute respiratory failure with hypoxia (principal); J45.901 Unspecified asthma with (acute) exacerbation; F72 Severe intellectual disabilities; Q68.1 Congenital deformity of finger(s) and hand; E03.9 Hypothyroidism, unspecified; J45.909 Unspecified asthma, uncomplicated; Q90.9 Down syndrome, unspecified; I44.7 Left bundle-branch block, unspecified; Q24.9 Congenital malformation of heart, unspecified; H10.9 Unspecified conjunctivitis; D53.9 Nutritional anemia, unspecified; K59.00 Constipation, unspecified; H26.9 Unspecified cataract
CPT/HCPCS: 36415; 36600; 71045-TC-FY; 74230-TC-FY; 80048; 80053; 82607; 82746; 82803; 83605; 83735; 84100; 84134; 85025; 85027; 85610; 85651; 86140; 87040; 87633; 87804; 92611-GN; 93005; 93010; 94640; 99283-25; J1100; J1644

== ENCOUNTER 2019-06-07 10:06 | Emergency (ER) | payer OTHER ==
[2019-06-07 10:15] VITALS: BP 123/84; PULSE 70; TEMP 97.8; BMI 21.1
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
== END 2019-06-07 13:40 | disposition home or self-care (01) ==
LOC: JERFT 10:06
DX: S05.12XA Contusion of eyeball and orbital tissues, left eye, initial encounter (principal); W22.8XXA Striking against or struck by other objects, initial encounter; Y93.89 Activity, other specified; Y92.198 Other place in other specified residential institution as the place of occurrence of the external cause; Y99.8 Other external cause status; Q90.9 Down syndrome, unspecified; F79 Unspecified intellectual disabilities; E06.9 Thyroiditis, unspecified; J45.909 Unspecified asthma, uncomplicated
CPT/HCPCS: 70150-TC-FY; 99281-25

== ENCOUNTER 2021-03-03 12:32 | Emergency (ER) | payer OTHER ==
[2021-03-03 12:40] VITALS: BP 102/76; PULSE 95; TEMP 97.9; BMI 28.1
== END 2021-03-03 13:55 | disposition home or self-care (01) ==
LOC: JERFT 12:32
DX: M62.831 Muscle spasm of calf (principal); M25.861 Other specified joint disorders, right knee
CPT/HCPCS: 73562-TC-RT-FY; 99283-25